=== PATIENT | female | born 1955 | race Caucasian/White ===

== ENCOUNTER 2018-02-26 15:16 | Emergency (ER) | payer BC, SELFPAY ==
[2018-02-26 15:22] VITALS: BP 147/77; PULSE 80; RESP 16; TEMP 36.5; O2SAT 96
--- NOTE | 2018-02-26 15:28 | ED.GENADUL ---
Disposition Clinical Impression: Skin lesion, Pyogenic granuloma Disposition: HOME Condition: Stable Instructions: Cellulitis (ED), Excision of Skin Lesion (GEN) Additional Instructions: Stop taking the Bactrim. Start taking the doxycycline antibiotic and finished completely. Follow-up with your primary care doctor in 1 week for reevaluation and for referral to dermatology. Return to the emergency department with any worsening or new concerning symptoms. Prescriptions: Doxycycline [Vibramycin] 100 mg PO BID 7 Days cap Medical Decision Making - Medical Decision Making 62-year-old female who presents with painful lesion to her left forearm for 3 weeks. No relief with Bactrim for the past week per PCP. Denies fever, tick bite, travel. Lesion appears to have a central umbilication or indentation which has dried blood in center. It is tender to touch with erythema directly around center and raised lesion which likely is consistent with mild infection. The initial lesion she describes similar to an area of bleeding on the distal forearm. Differential diagnoses includes pyogenic granuloma or ulcerative lesion, etc. Patient appears nontoxic with normal vitals. Will recommend patient stop the Bactrim and will start on doxycycline. Will have patient follow-up with her primary care doctor for referral to dermatology for further evaluation and consideration of biopsy if a possible skin cancer is a concern. History of Present Illness - General Stated complaint: SKIN LESION Time Seen by Provider: 02/26/18 15:28 Source: patient Mode of arrival: ambulatory Limitations: no limitations - History of Present Illness Initial comments: Patient is a 62-year-old female presents with a painful lesion on her left forearm for the past 3 weeks. States the lesion started as a small lesion with bleeding in center. States she attempted to pop it without relief. She sent a picture of the lesion to her primary care doctor 1 week ago who started her on Bactrim. Patient states the lesion has gotten worse since being on the Bactrim. She denies known fever. Denies recent tick bite, travel. - Related Data Bupropion HCl [Wellbutrin Sr] 150 mg PO BID 11/27/12 Methylphenidate [Ritalin] 10 mg PO DAILY 11/27/12 Aspirin [Aspir-Low] 81 mg PO DAILY 10/29/16 Atorvastatin [Lipitor] 20 mg PO DAILY 10/29/16 Levothyroxine Sodium [Synthroid] 25 mcg PO DAILY 10/29/16 Metoprolol [Lopressor] 12.5 mg PO BID 10/29/16 Pantoprazole [Protonix] 40 mg PO DAILY@0730 #30 tabcr 07/30/17 Doxycycline [Vibramycin] 100 mg PO BID 7 Days cap 02/26/18 Allergies Allergy/AdvReac Type Severity Reaction Status Date / Time dry air heat AdvReac Mild runny Uncoded 10/29/16 17:11 nose/sneezing Review of Systems Constitutional: denies: chills, fever Eyes: denies: eye pain ENT: denies: ear pain, dental pain Respiratory: denies: cough, shortness of breath Cardiovascular: denies: chest pain, dyspnea on exertion Gastrointestinal: denies: abdominal pain, nausea, vomiting Genitourinary: denies: urgency, dysuria, frequency Musculoskeletal: denies: back pain Skin: lesions. denies: rash Neurological: denies: headache, weakness, numbness Past Medical History - Past Medical History Medical history: AMI, hyperlipidemia, hypertension Hypothyroidism Surgical history: other (Hip replacement, bladder repair) Psychiatric history: anxiety, depression Family history: CAD/[place] (MOTHER), cancer (FATHER), diabetes (BROTHER) - Social History Smoking status: never smoker Alcohol use: none Drug use: none General Exam - General Limitations: no limitations General appearance: alert, in no apparent distress - Eye Eye exam: Present: EOMI - Respiratory Respiratory exam: Absent: respiratory distress - Cardiovascular Cardiovascular Exam: Present: regular rate - Extremities Exam Extremities exam: Present: other (An approximately 2 x 2 centimeter raised erythematous lesion on left dorsal mid forearm. There appears to be a center area of excoriation consistent with possibly dried blood. There is no extending induration, fluctuance, or streaking from lesion.) - Neurological Exam Neurological exam: Present: alert, oriented X3 - Psychiatric Psychiatric exam: Present: normal affect - Skin Skin exam: Present: warm, dry, intact Course Vital Signs - 24 hr 02/26/18 15:22 Temperature 205.7 F H Pulse 80 Respiratory 16 Rate Blood Pressure 147/77 Pulse Oximetry 96
[2018-02-26 16:00] VITALS: BP 147/77; PULSE 80; RESP 16; TEMP 36.5; O2SAT 96
== END 2018-02-26 15:59 | disposition home or self-care (01) ==
PROVIDERS: Emergency Provider Physician Assistant; PCP Family Medicine
DX: L98.0 Pyogenic granuloma (principal); I10 Essential (primary) hypertension
CPT/HCPCS: 99283

== ENCOUNTER 2018-05-06 10:44 | Outpatient (CLI) | payer BC, SELFPAY ==
[2018-05-06 12:46] LABS: Ferritin 41 ng/mL (8-388)
== END 2018-05-06 11:04 ==
PROVIDERS: PCP Family Medicine; Visit Provider Nurse Practitioner
DX: G47.61 Periodic limb movement disorder (principal)
CPT/HCPCS: 36415; 82728

== ENCOUNTER 2018-08-26 22:00 | Outpatient (REF) | payer MEDICAID, SELFPAY ==
[2018-08-26 22:48] LABS: ALT 23 U/L (12-78); AST 23 U/L (15-37); Albumin 3.8 g/dL (3.4-5.0); Alkaline Phosphatase 87 U/L (46-116); Anion Gap 11.2 mmol/L (3-11); BUN 14 mg/dL (7-18); Bilirubin, Total 0.6 mg/dL (0.2-1.0); CO2 26.8 mmol/L (21.0-32.0); CREATININE 0.84 mg/dL (0.55-1.02); Calcium 8.9 mg/dL (8.5-10.1); Chloride 105 mmol/L (98-107); Glucose 127 mg/dL (70-100); Potassium 4.3 mmol/L (3.5-5.1); Sodium 143 mmol/L (136-145); TSH (W/Ref FT4) 1.05 uIU/mL (0.358-3.74); Total Protein 6.6 g/dL (6.4-8.2)
== END 2018-08-26 22:20 ==
LOC: NCHCN 22:00
PROVIDERS: PCP Family Medicine; Visit Provider Family Medicine
DX: E03.9 Hypothyroidism, unspecified (principal); E78.5 Hyperlipidemia, unspecified; I10 Essential (primary) hypertension
CPT/HCPCS: 80053; 84443

== ENCOUNTER 2019-01-05 10:44 | Outpatient (CLI) | payer MEDICARE, OTHER, MEDICAID, SELFPAY ==
[2019-01-05 15:29] LABS: Bilirubin Negative (Negative); Blood Large (Negative); Glucose Negative (Negative); Ketones Negative (Negative); Leukocyte Esterase Moderate (Negative); Nitrite Negative (Negative); Specific Gravity 1.025 (1.005-1.025); Urobilinogen 0.2 EU/dL (Up TO 0.2)
[2019-01-05 15:30] LABS: Clarity Sl Cloudy (Clear)
[2019-01-05 15:31] LABS: WBC >50 HPF (0-5)
[2019-01-05 15:32] LABS: C & S Indicated? Yes; RBC >50 (0-2)
== END 2019-01-05 11:04 ==
PROVIDERS: PCP Family Medicine; Visit Provider Family Medicine
DX: R30.0 Dysuria (principal)
CPT/HCPCS: 87077; 81003; 81015; 87086; 87186

== ENCOUNTER 2019-02-10 12:05 | Outpatient (REF) | payer MEDICARE, OTHER, SELFPAY ==
--- NOTE | 2019-02-10 13:30 | PAPFT_PTH ---
PATIENT: Jessa Madrigal LOC: [facility] U#:[id number] AGE/SX: 63/F ROOM: RE02/10/[address]: Judith Osorio V : 1955 BED: DIS: 02/10/2019 SPEC #: [id number] RECD: 02/11/19 12:49 STATUS: STEPHANY RIVERA #: [id number] MEJIA: 02/10/19 13:[address]: Judith Osorio V DEPT: [facility] Cytology RECD BY: Maria M Warren Tissues: 1 - CX/ENDOCX FOR PAP SMEARS Procedures: PAP THIN PREP/UVM Screening HPV DNA PROBE Comments: [id number]
== END 2019-02-10 12:25 ==
LOC: NCHCN 12:05
PROVIDERS: PCP Family Medicine; Visit Provider Family Medicine
DX: Z12.4 Encounter for screening for malignant neoplasm of cervix (principal); Z11.51 Encounter for screening for human papillomavirus (HPV); Z01.419 Encounter for gynecological examination (general) (routine) without abnormal findings
CPT/HCPCS: 88142; 87624

== ENCOUNTER 2019-05-09 01:50 | Outpatient (CLI) | payer MEDICARE, OTHER, SELFPAY ==
--- NOTE | 2019-05-09 11:55 | DI.MAMMO_ITS ---
EXAM: MG MAMMO SCREENING CLINICAL HISTORY: [facility], Z00.00, SCREENING, Z12.31. TECHNIQUE: Bilateral full field digital CC and MLO mammographic images were obtained with 3D tomosyn thesis and utilizing computer aided detection (CAD). COMPARISON: Available for comparison. FINDINGS: Masses/Architectural Distortion: None seen. Microcalcifications: No suspicious pleomorphic-type are seen. Skin Thickening/Nipple Retraction: None. IMPRESSION: 1. No significant interval change with no specific features of malignancy noted. 2. Unless there is more urgent need, screening mammography is recommended, as per [employer] guidelines. ACR BI-RAD Category- 1 Negative Breast Density - Category B - Scattered areas of fibroglandular density A negative radiographic report should not delay biopsy if a dominant or clinically suspicious mass is present. Up to ten percent of cancers are not identified on mammography. A negative report may reinforce clinical impression. Adenosis and dense breasts may obscure an underlying neoplasm. False positive reports average 6 to 10%.
== END 2019-05-09 02:10 ==
PROVIDERS: PCP Family Medicine; Visit Provider Family Medicine
DX: Z12.31 Encounter for screening mammogram for malignant neoplasm of breast (principal)
CPT/HCPCS: 77063; 77067

== ENCOUNTER 2019-10-11 09:11 | Outpatient (CLI) | payer OTHER, SELFPAY ==
[2019-10-14 04:37] LABS: SARS-CoV-2 RNA Undetected (Undetected); SARS-CoV-2 Specimen Source Nasopharynx
== END 2019-10-11 09:31 ==
PROVIDERS: PCP Family Medicine; Visit Provider Physician Assistant
DX: Z20.828 Contact with and (suspected) exposure to other viral communicable diseases (principal); R05 Cough
CPT/HCPCS: U0003

== ENCOUNTER 2019-12-05 10:38 | Emergency (ER) | payer OTHER, SELFPAY ==
[2019-12-05] VITALS (34 sets, daily range): BP systolic 116–146; BP diastolic 59–99; PULSE 67–89; RESP 15–24; TEMP 36.6–37; O2SAT 82–97
--- NOTE | 2019-12-05 10:56 | ED.GENADUL_ITS ---
Discharge Plan Disposition Patient Disposition: HOME Condition: Fair Discharge Details Chief Complaint: GI Bleed Clinical Impression: Colitis, Diverticulitis, Hypokalemia Primary Care Provider: Judith Osorio V ED Provider: Yesi Lopez Home Meds and New Rx's Prescriptions: New amoxicillin-pot clavulanate [Augmentin] 875-125 mg tablet 1 tab PO TID 7 Days Qty: 21 RF: 0 ondansetron 4 mg tablet,disintegrating 4 mg PO Q6H PRN (Reason: nausea and vomiting) Qty: 10 RF: 0 Continued glucosamine-chondroitin [Osteo Bi-Flex] 250-200 mg Tablet 1 tab PO DAILY RF: 0 levothyroxine [Synthroid] 25 MCG tablet 25 mcg PO DAILY RF: 0 aspirin [Aspir-Low] 81 MG tablet,delayed release (DR/EC) 81 mg PO DAILY RF: 0 metoprolol tartrate 12.5 MG tablet 12.5 mg PO BID RF: 0 atorvastatin [Lipitor] 10 MG tablet 20 mg PO DAILY RF: 0 pantoprazole 40 MG tablet,delayed release (DR/EC) 40 mg PO DAILY@0730 Qty: 30 RF: 0 Discharge Instructions Instructions: Potassium Chloride (By mouth), Amoxicillin/Clavulanate Potassium (By mouth), Ondansetron (By mouth), Diverticulitis (ED), Hypokalemia (ED), Diverticulitis Diet (ED) Additional Instructions: Encourage water intake. You may continue with Tylenol and/or ibuprofen as needed for discomfort. Please take the antibiotics as prescribed. Even if symptoms improve, please finish the entire course. You may use the Zofran as prescribed to help with any recurrence of your nausea or vomiting. Will be sent home with 3 doses of potassium. Please print these out but complete the 30 mg course over tonight and tomorrow morning. These would be well-tolerated with food. Please encourage potassium intake in diet. I would like for you to follow-up with your primary care in the next 48 hours. Please call tomorrow morning to schedule follow-up appointment. If you develop fever/chills, increased bleeding, weakness, inability stay hydrated, increased pain or other new/worsening symptom please seek care urgently once again. I would like for you to discuss colonoscopy further with primary care. Referrals: Judith Osorio MD [Primary Care Provider] - Medical Decision Making Patient is a pleasant 64-year-old female presenting today with chief complaint of bright red blood per rectum as well as left lower quadrant abdominal pain. She reports that symptoms began yesterday at 2 PM. She states that she is never had pain like this historically. States yesterday she had nausea and vomiting x1. Has not experienced this today. Last ate at 9 AM at which time she had a muffin and has been hydrating today. She states that the pain was severe enough to cause her to take Toradol which she states relieved her discomfort. She denies any rectal pain. Denies any rectal trauma. Has not had history of hemorrhoids. No recent medication changes. No fevers or chills. No previous abdominal surgeries. Denies black or tarry stools. No hematemesis. Denies any hematuria or easy bruising/bleeding. States that rather she is seeing bright red blood in watery brown diarrhea. Last colonoscopy was in 2011 at which time benign polyps were removed. Patient has significant family history for colon cancer. She reports that her father at 62 from colon cancer. On exam, patient is resting comfortably. Appears nontoxic. Vital signs significant for blood pressure 146/82. Otherwise within normal limits. Lungs are clear, normal cardiac exam. No CVA tenderness. Patient is tender in the left lower quadrant with no guarding or rebound tenderness. No peritoneal findings. Rectal exam was without abnormality. He did attempt a guaiac test but patient's rectal vault is fairly clean so I do not note the quality of this test. She is declining any antiemetics or analgesics at this time. Plan for labs and CT. Primarily concern for diverticulitis. Also considered atypical appendicitis. I find ovarian source less likely as the patient is having diarrhea associated with this. This could be infectious etiology versus other. Labs reviewed. Patient has leukocytosis with a white count of 15 and left shift. Hemoglobin is stable at 15.7. Potassium is low at 3.1. Will replenish this orally. No other electrolyte abnormalities. TSH within normal limits. FINDINGS: Lungs: Mild opacities in the lingula and both lower lobes may represent atelectasis or pneumonia. Liver: Well delineated low-attenuation mass in the medial right lobe of the liver 3.1 by 1.5 cm. Twenty-two Hounsfield units . Gallbladder and bile ducts: Normal. No calcified stones. No ductal dilation. Pancreas: Normal. No ductal dilation. Spleen: Normal. No splenomegaly. Adrenals: Normal. No mass. Kidneys and ureters: Normal. No hydronephrosis. Stomach and bowel: Low-attenuation bowel wall thickening is seen throughout the colon consistent with colitis. Differential diagnosis includes infectious and inflammatory etiologies.. Diverticulosis of the rectosigmoid with pericolonic inflammatory changes may reflect concomitant diverticulitis. Appendix: Right inguinal hernia contains the appendix Intraperitoneal space: Unremarkable. No free air. No significant fluid collection. Vasculature: Unremarkable. No abdominal aortic aneurysm. Lymph nodes: Small retroperitoneal nodes Bladder: Unremarkable as visualized. Reproductive: Unremarkable as visualized. Bones/joints: Right total hip replacement Soft tissues: Unremarkable. IMPRESSION: 1. Low-attenuation bowel wall thickening is seen throughout the colon consistent with colitis. Differential diagnosis includes infectious and inflammatory etiologies.. 2. Well delineated low-attenuation mass in the medial right lobe of the liver 3.1 by 1.5 cm. Twenty-two Hounsfield units . 3. Diverticulosis of the rectosigmoid with pericolonic inflammatory changes may reflect concomitant diverticulitis. Discussed these findings with the patient. She will follow-up with her primary care regarding the findings in the liver. We will start the patient on antibiotics. Will start p.o. Augmentin. Her pain is much improved after 2 mg of morphine Zofran has completely subsided with Zofran. Patient is receiving her IV potassium. Plan to send her home with further p.o. potassium. Patient tolerated Augmentin well. Sent home with Augmentin, Zofran. Advised that she should follow-up with primary care in the next 2 days for reevaluation. Advised probiotic. Information on diverticular diet will be sent home. Also advised that she should have a repeat colonoscopy for family history and concerns today. Will defer to primary care to arrange for this. She was given return precautions. Patient has probiotics at home which she will continue. She will contact primary care tomorrow to schedule follow-up appointment. All of her questions and concerns were addressed this plan. HPI General Mode of arrival: ambulatory . Date/Time Provider Initiated Documentation: 12/05/19 10:56 . Limitations to Documentation: no limitations . Information obtained by: patient, RN notes reviewed and old records reviewed . History of Present Illness 64 year old F presents to the emergency department with the chief complaint of LLQ pain and bright red blood per rectum, described as moderate, with intensity rated at 5. Quality is described as aching, and is localized to the abdomen. Patient reports no radiation. Patient started experiencing this day(s) (1) and it has been constant. No relieving factors improve symptom(s), No exacerbating factors reported . Patient notes nausea/vomiting (x1 yesterday); denies chest pain, cough, fever/chills, loss of appetite (low appetiteyesterday, normal today), rash, shortness of breath and weakness. Patient did receive the following treatments prior to arrival, other (tramadol) Related Data Home Medications Medication Instructions Recorded Confirmed aspirin [Aspir-Low] 81 mg PO DAILY 10/29/16 12/05/19 atorvastatin [Lipitor] 20 mg PO DAILY 10/29/16 12/05/19 levothyroxine [Synthroid] 25 mcg PO DAILY 10/29/16 12/05/19 metoprolol tartrate 12.5 mg PO BID 10/29/16 12/05/19 pantoprazole 40 mg PO DAILY@0730 #30 tabcr 07/30/17 12/05/19 amoxicillin-pot clavulanate 1 tab PO TID 7 Days #21 tab 12/05/19 [Augmentin] glucosamine-chondroitin [Osteo 1 tab PO DAILY 12/05/19 12/05/19 Bi-Flex] ondansetron 4 mg PO Q6H PRN #10 tab 12/05/19 Previous Rx's Medication Instructions Recorded pantoprazole 40 mg PO DAILY@0730 #30 tabcr 07/30/17 amoxicillin-pot clavulanate 1 tab PO TID 7 Days #21 tab 12/05/19 [Augmentin] ondansetron 4 mg PO Q6H PRN #10 tab 12/05/19 Allergies Allergy/AdvReac Type Severity Reaction Status Date / Time dry air heat AdvReac Mild runny Uncoded 12/05/19 10:45 nose/sneezing General Stated Complaint: GI Bleed JAMES: 3 Review of Systems Constitutional Constitutional: Reports as per HPI, Denies chills, Denies fatigue, Denies fever(s) and Denies headache(s) ENT Ears, Nose, Mouth, and Throat: Denies headache(s) Cardiovascular Cardiovascular: Reports as per HPI, Denies chest pain and Denies dyspnea Respiratory Respiratory: Reports as per HPI, Denies cough and Denies dyspnea Gastrointestinal Gastrointestinal: Reports as per HPI, Reports abdominal pain, Denies melena, Denies bloating, Reports hematochezia, Reports change in bowel habits, Denies coffee ground emesis, Denies cramping, Reports diarrhea (watery brown stools with bright red blood streaks), Denies nausea (yesterday, none today) and Denies vomiting (x 1 yesterday, none today) Musculoskeletal Musculoskeletal: Reports as per HPI and Denies back pain Integumentary/Breasts Skin/Breast: Reports as per HPI and Denies rash Neurologic Neurologic: Reports as per HPI and Denies headache(s) Endocrine Endocrine: Denies fatigue [facility] Medical History ADHD CAD (coronary artery disease) GERD (gastroesophageal reflux disease) Social History Smoking/Tobacco Use Status: Current every day Alcohol Intake: never Drug use: Never Do you feel safe at home: Yes Do you feel safe in your relationship?: Yes Exam Const General: cooperative, healthy appearing, comfortable, no acute distress and well developed Nutritional Appearance: average body habitus and well nourished Orientation: alert and awake [facility] Head: normal to inspection Mouth: moist mucous membranes Resp Effort & Inspection: normal respiratory effort, able to speak in complete sentences and no respiratory distress Auscultation: clear to auscultation bilaterally, no rales, no rhonchi and no wheezes Cardio Rate: regular rate Rhythm: regular rhythm Heart Sounds: S1 normal and S2 normal GI Inspection: normal to inspection, no edema, non-distended, no scars, no visible herniation, no visible pulsation and No visible peristalsis Palpation: soft, no hepatosplenomegaly, not firm, no guarding, no hernias, no masses, no pulsatile masses, not rigid, tender in the LLQ; with no rebound tenderness and No ascites Percussion: normal to percussion Auscultation: normal bowel sounds Rectal Exam - female: visual inspection normal, normal sphincter tone and No abnormal stool (no stool in rectal vault for testing) Back/Spine/Pelvis Back: no CVA tenderness Skin General skin exam: no rashes or lesions noted Trauma: no lacerations or abrasions Neuro General: patient alert and patient awake Cognition: normal cognition Speech: speech normal Gait: normal gait Psych Appearance: grossly normal and well kempt Mental Status: mental status grossly normal Speech and Movement: speech and movement normal Course Vital Signs Vital signs: Vital Signs Temperature 36.6 C 12/05/19 10:40 Pulse 88 12/05/19 10:40 Respiratory Rate 16 12/05/19 10:40 Blood Pressure 146/82 H 12/05/19 10:40 Pulse Oximetry 96 12/05/19 10:40 Temperature 36.6 C 12/05/19 10:40 Temperature Source Skin 12/05/19 10:40 Pulse 88 12/05/19 10:40 Respiratory Rate 16 12/05/19 10:40 Respiratory Effort 12/05/19 10:49 Blood Pressure 146/82 H 12/05/19 10:40 Blood Pressure Position Sitting 12/05/19 10:40 Pulse Oximetry 96 12/05/19 10:40 Oxygen Delivery Method Room Air 12/05/19 10:40 Oxygen Flow Rate 0 12/05/19 10:40 Pain Level 5 12/05/19 10:53
[2019-12-05] MEDS: Normal Saline 1,000 ML 1000 ML IV (11:15)
[2019-12-05] MEDS: Normal Saline Flush 10 ML SYR IVP (11:15)
[2019-12-05 11:29] LABS: Abs Immature Grans 0.05 k/cumm (0.0-0.09); Absolute Lymphocyte Count 1.95 k/cumm (1.2-3.4); Absolute Neutrophil Count 12.19 k/cumm (1.2-6.7); Basophils % 0.1; Eosinophils % 0.5; HCT 44.6 % (36.0-46.0); HGB 15.7 g/dL (12.0-15.5); Immature Grans % 0.3 %; Lymphocytes % 12.8; Mean Corp. HGB Concentration 35.2 g/dL (32.0-36.0); Mean Corpuscular Hemoglobin 30.5 pg (27.0-33.0); Mean Corpuscular Volume 86.8 fL (80-95); Mean Platelet Volume 9.9 fL (8.0-11.0); Monocytes % 6.2; Neutrophils % 80.1; Platelet Count 298 x1000/uL (130-400); RBC 5.14 m/cumm (4.00-5.20); RBC Distribution Width 13.8 % (11.7-14.6); White Blood Cell Count 15.22 k/cumm (4.4-10.8)
[2019-12-05 11:30] LABS: Absolute Basophil Count 0.02 k/cumm (0.0-0.2); Absolute Eosinophil Count 0.08 k/cumm (0.0-0.7); Absolute Monocyte Count 0.94 k/cumm (0.11-0.7)
[2019-12-05] MEDS: Omnipaque 350 MG/ML 50 ML BTL IJ (11:35)
[2019-12-05] MEDS: Breeza Beverage 473 ML BTL PO ×2 (11:37)
[2019-12-05 11:55] LABS: ALT 23 U/L (14-59); AST 19 U/L (15-37); Albumin 4.1 g/dL (3.4-5.0); Alkaline Phosphatase 84 U/L (46-116); BUN 9 mg/dL (7-18); CREATININE 0.88 mg/dL (0.55-1.02); Calcium 8.6 mg/dL (8.5-10.1); Chloride 105 mmol/L (98-107); Glucose 148 mg/dL (74-106); Potassium 3.1 mmol/L (3.5-5.1); Sodium 141 mmol/L (136-145); Total Protein 7.4 g/dL (6.4-8.2)
[2019-12-05 11:57] LABS: TSH (W/Ref FT4) 1.11 uIU/mL (0.36-3.74)
[2019-12-05] MEDS: Omnipaque 350 MG/ML 100 ML BTL IJ (13:00)
[2019-12-05] MEDS: Normal Saline - Diluent 50 ML VIAL IV (13:01)
--- NOTE | 2019-12-05 13:05 | DI.CT_ITS ---
EXAM: CT ABDOMEN PELVIS W CLINICAL HISTORY: LLQ pain, BRP per rectum. TECHNIQUE: Imaging Protocol: Axial computed tomography images with coronal and sagittal reformatted images were created and reviewed CONTRAST MATERIAL: Intravenous: Omnipaque 350 Contrast volume:structured data in ml Oral: yes / no COMPARISON: CT ABD/PELVIS WO W CONTRAST from 04/04/2010 CR RT HIP COMPLETE AP PELVIS from 12/27/2015 CT CHEST FOR PULMONARY EMBOLUS from 10/29/2016 CT CHEST FOR PULMONARY EMBOLUS from 07/29/2017 FINDINGS: ABDOMEN: Lung Bases: Dependent changes Liver: Normal density. There is a circumscribed low-attenuation lesion in the posteromedial right lob e of the liver near the diaphragm measuring 3.1 x 1.5 cm. This is faintly visible on the previous ex aminations and appears grossly unchanged.. Gallbladder and biliary tract: No radiodense calculus or dilation. Pancreas: Normal density, no abnormal calcifications or inflammatory process. Spleen: Normal. Kidneys: Normal size, contour and axis. No radiodense stones or obstructive uropathy. No masses seen. Adrenal glands: No masses seen. Abdominal Aorta: Abdominal portion non-dilated. The distal abdominal aorta is heavily calcified show some reduction in diameter. The iliac arteries also show calcification and reduced diameter proxima lly. PELVIS: Bladder: Symmetric distention, no gross wall thickening. Bowel: The stomach and small bowel are unremarkable. The colon shows diffuse wall thickening. There is prominent diverticulosis of the lower descending and sigmoid colon. The appendix projects into t he right inguinal canal. Peritoneal cavity: No ascites, collection or mesenteric inflammatory response. Bones: There is a right hip prosthesis creating artifact in the pelvis. Degenerative disc changes ar e seen in the lumbar spine. Reproductive organs: Within normal limits. Lymph nodes: Unremarkable. Impression: Colonic wall thickening, consistent with infectious or inflammatory colitis. Severe diverticulosis i s noted of the descending and sigmoid colon. There is a right inguinal hernia containing the appendi x which is not inflamed.. RADIATION DOSE DELIVERED: 568.2mGy.cm Total DLP DATA REPOSITORY: All CT scans at this facility are submitted to the National Radiology Data Registry (NRDR) Dose Index Registry (DIR) with the [employer] [place] [employer] [employer] (ACR). RADIATION OPTIMIZATION: All CT scans at this facility use at least one of these dose optimization te chniques: automated exposure control; mA and/or kV adjustment per patient size (includes targeted exa ms where dose is matched to clinical indication); or iterative reconstruction.
--- NOTE | 2019-12-05 13:35 | DI.VRAD_ITS ---
PROCEDURE INFORMATION: Exam: CT Abdomen And Pelvis With Contrast Exam date and time: 12/05/2019 11:14 AM Age: 64 years old Clinical indication: Other: Llq pain, brp per rectum TECHNIQUE: Imaging protocol: Computed tomography of the abdomen and pelvis with intravenous contrast. Radiation optimization: All CT scans at this facility use at least one of these dose optimization techniques: automated exposure control; mA and/or kV adjustment per patient size (includes targeted exams where dose is matched to clinical indication); or iterative reconstruction. Contrast material: OMNIPAQUE 350; Contrast volume: 76 ml; Contrast route: IV; COMPARISON: CR RT HIP COMPLETE AP PELVIS 12/27/2015 9:04 AM FINDINGS: Lungs: Mild opacities in the lingula and both lower lobes may represent atelectasis or pneumonia. Liver: Well delineated low-attenuation mass in the medial right lobe of the liver 3.1 by 1.5 cm. Twenty-two Hounsfield units . Gallbladder and bile ducts: Normal. No calcified stones. No ductal dilation. Pancreas: Normal. No ductal dilation. Spleen: Normal. No splenomegaly. Adrenals: Normal. No mass. Kidneys and ureters: Normal. No hydronephrosis. Stomach and bowel: Low-attenuation bowel wall thickening is seen throughout the colon consistent with colitis. Differential diagnosis includes infectious and inflammatory etiologies.. Diverticulosis of the rectosigmoid with pericolonic inflammatory changes may reflect concomitant diverticulitis. Appendix: Right inguinal hernia contains the appendix Intraperitoneal space: Unremarkable. No free air. No significant fluid collection. Vasculature: Unremarkable. No abdominal aortic aneurysm. Lymph nodes: Small retroperitoneal nodes Bladder: Unremarkable as visualized. Reproductive: Unremarkable as visualized. Bones/joints: Right total hip replacement Soft tissues: Unremarkable. IMPRESSION: 1. Low-attenuation bowel wall thickening is seen throughout the colon consistent with colitis. Differential diagnosis includes infectious and inflammatory etiologies.. 2. Well delineated low-attenuation mass in the medial right lobe of the liver 3.1 by 1.5 cm. Twenty-two Hounsfield units . 3. Diverticulosis of the rectosigmoid with pericolonic inflammatory changes may reflect concomitant diverticulitis. Dictated and Authenticated by: Yung Quiroga MD. Ordering:DAVION Key MD
[2019-12-05] MEDS: Ondansetron 4 MG/2 ML VIAL IVP (13:45)
[2019-12-05] MEDS: POTASSIUM CHLORIDE 20 MEQ/100 ML BAG 50 MEQ IVPB (13:53)
[2019-12-05] MEDS: Amoxicillin 875/Clav. 125 TAB PO ×2 (14:39→15:52)
[2019-12-05] MEDS: Ondansetron O.D.T. 4 MG TABEF 12 MG PO (15:51)
[2019-12-05] MEDS: Potassium Chloride 10 MEQ TABCR 30 MEQ PO (15:51)
== END 2019-12-05 15:55 | disposition home or self-care (01) ==
PROVIDERS: Emergency Provider Physician Assistant; PCP Family Medicine
DX: K57.32 Diverticulitis of large intestine without perforation or abscess without bleeding (principal); K52.9 Noninfective gastroenteritis and colitis, unspecified; R93.2 Abnormal findings on diagnostic imaging of liver and biliary tract; E87.6 Hypokalemia; R11.2 Nausea with vomiting, unspecified; Z80.0 Family history of malignant neoplasm of digestive organs
CPT/HCPCS: 36415; 80053; 86850; 86900; 86901; 96361; 96365; 96366; 96375; 99285; 74177; 84443; 85025; 99284; J2405; J3480; J3490; Q9967

== ENCOUNTER 2019-12-09 13:54 | Outpatient (REF) | payer OTHER, SELFPAY ==
[2019-12-09 19:45] LABS: BUN 9 mg/dL (7-18); CREATININE 0.71 mg/dL (0.55-1.02); Calcium 9.2 mg/dL (8.5-10.1); Chloride 105 mmol/L (98-107); Glucose 94 mg/dL (74-106); Potassium 4.7 mmol/L (3.5-5.1); Sodium 142 mmol/L (136-145)
== END 2019-12-09 14:14 ==
LOC: NCHCN 13:54
PROVIDERS: PCP Family Medicine; Visit Provider Physician Assistant Medical
DX: R19.7 Diarrhea, unspecified (principal)
CPT/HCPCS: 80048

== ENCOUNTER → 2019-12-16 11:19 | Outpatient (BNVA) | payer OTHER, MEDICARE, SELFPAY | PROVIDERS: PCP Family Medicine; Referring Provider Family Medicine; Visit Provider Surgery | DX: K52.89 Other specified noninfective gastroenteritis and colitis (principal); K40.90 Unilateral inguinal hernia, without obstruction or gangrene, not specified as recurrent; I10 Essential (primary) hypertension | CPT/HCPCS: 99213 ==

== ENCOUNTER 2019-12-16 22:00 | Outpatient (REF) | payer OTHER, MEDICARE, SELFPAY ==
[2019-12-19 10:39] LABS: Campylobacter PCR Negative (Negative); Salmonella PCR Negative (Negative); Shiga Toxin PCR Negative (Negative); Shigella/Enteroinvasive Ecoli Negative (Negative)
== END 2019-12-16 22:20 ==
LOC: NCHCN 22:00
PROVIDERS: PCP Family Medicine; Visit Provider Physician Assistant Medical
DX: R19.7 Diarrhea, unspecified (principal); K52.9 Noninfective gastroenteritis and colitis, unspecified
CPT/HCPCS: 87505; 83630; 87324

== ENCOUNTER → 2019-12-30 11:29 | Outpatient (BNVA) | payer OTHER, MEDICARE, SELFPAY | PROVIDERS: PCP Family Medicine; Referring Provider Family Medicine; Visit Provider Surgery | DX: Z12.11 Encounter for screening for malignant neoplasm of colon (principal); Z80.0 Family history of malignant neoplasm of digestive organs; K52.9 Noninfective gastroenteritis and colitis, unspecified; I10 Essential (primary) hypertension ==

== ENCOUNTER 2020-01-30 07:19 | Day surgery (SDC) | payer OTHER, SELFPAY ==
--- NOTE | 2020-01-30 06:48 | COLE_ITS ---
Date of service: 01/30/20 Time of Service: 08:18 Colonoscopy Report Date of procedure: 01/30/20 Pre-op diagnosis general: Family history and colon cancer screening Post-op diagnosis procedure note: same (diverticulosis and polyps) Procedure: Colonoscopy with polypectomy Surgeon: Gloria Chavez Anesthesia proc note operative: other (General/ ASA 2/Vanna Sewell, ADELITA) Estimated blood loss (mL): 3 Pathology: other (rectal p, cecal p.,ascending P. x2, Transverse p. x2, descending p.) Complications: None Disposition: same day Indications: 64 year old female diagnosed with colitis/diverticulitis and treated with 2 weeks of Augmentin. She is here today to discuss a colonoscopy. Her last colonoscopy was about 8 years ago. She does have an extensive family history of colon cancer and is supposed to have colonoscopies every 5 years. Risks, benefits and complications have been reviewed. Complications include but are not limited to bleeding, pain, perforation, missed small lesion/polyp, sore throat, aspiration and adverse reaction to the medications. Questions were entertained and answered to their satisfaction and they wished to proceed. No guarantees were given or implied. Prep: Miralax/Dulcolax Procedure Start Time: 08:18 Procedure End Time: 09:05 Retraction Time: 21 minutes Findings: Severe diverticulosis of the descedning and sigmoid colon, mild diverticulosis of the ascending and transverse colon. Multiple polyps >1cm sessile polyp in the cecum, >1 cm sessile ascending Polyp Procedure Description: After informed consent was obtained the patient was taken to the procedure room and placed in a left decubitous position. Monitors were applied and a time out was done. The patients name, date of , procedure, allergies to medications and metal in their body was reviewed. The patient was then sedated. Once sedated and comfortable a rectal exam was done. External exam was normal. Internal exam revealed a normal sphincter tone and no palpable masses. The scope was then introduced and retro-flexed. No internal hemorrhoids were identified. The scope was then advanced to the cecum with difficulty due to severe diverticulosis. The ileocecal valve and appendiceal orifice were identified. The prep was good. The scope was then slowly retracted over 21 minutes back into the rectum. Polyps were removed with cold forceps in the cecum, ascending colon x2, transverse colon x2, descending colon and rectum. The scope was removed and the patient was woken up and taken back to Same day surgery in stable condition. The patient tolerated the procedure well and there were no immediate complica tions. Follow up: Follow up will depend on final pathology results.
--- NOTE | 2020-01-30 06:50 | W.PM.DSUDISC ---
Discharge Plan Disposition Patient Disposition: HOME Condition: Good Discharge Details Reason For Visit: Colon Cancer Screening/ Family history Attending Provider: Gloria Chavez Primary Care Provider: Judith Osorio V Home Meds and New Rx's Prescriptions: Continued nitroglycerin [Nitrostat] 0.4 mg tablet, sublingual 0.4 mg SL Q5M PRNRF: 0 hydrocortisone acetate [Anusol-HC] 25 mg suppository 25 mg [place] DAILY RF: 0 omeprazole 40 mg capsule,delayed release(DR/EC) 40 mg PO DAILY RF: 0 levothyroxine [Synthroid] 50 mcg tablet 50 mcg PO DAILY RF: 0 triamcinolone acetonide [Nasacort] 55 mcg aerosol,spray 1 spray BRYCE DAILY RF: 0 cholecalciferol (vitamin D3) 50 mcg (2,000 unit) capsule 50 mcg PO DAILY RF: 0 glucosamine-chondroitin [Osteo Bi-Flex] 250-200 mg Tablet 1 tab PO DAILY RF: 0 ondansetron 4 mg tablet,disintegrating 4 mg PO Q6H PRN (Reason: nausea and vomiting) Qty: 10 RF: 0 aspirin [Aspir-Low] 81 MG tablet,delayed release (DR/EC) 81 mg PO DAILY RF: 0 metoprolol tartrate 12.5 MG tablet 12.5 mg PO BID RF: 0 atorvastatin [Lipitor] 10 MG tablet 20 mg PO DAILY RF: 0 Discontinued bisacodyl [Dulcolax (bisacodyl)] 5 mg tablet,delayed release (DR/EC) 5 mg PO ONCE Qty: 4 RF: 0 polyethylene glycol 3350 17 gram/dose powder 17 g PO ONCE Qty: 238 RF: 0 Discharge Instructions Instructions: Diverticulosis (DC) Additional Instructions: Findings: severe diverticulosis Multiple polyps Follow up: will depend on final pathology results. Please call if you develop: fevers >101.5 Nausea or Vomiting Abdominal pain that is not transient DAY SURGERY UNIT POST ENDOSCOPY INSTRUCTIONS 1. Because there will be medication in your system for the next 24 hours, you may feel a little sleepy. Your coordination will be affected. Therefore: a. Do not drive or operate dangerous equipment for 24 hours. b. Do not drink alcohol beverages for 24 hours (not even beer). c. Plan to go home and rest for the day. 2. Generally there are no restrictions on your activity after a day or so has gone by, but you may feel a bit fatigued for a few days. 3 After you arrive home you may have a light meal and return to a normal diet as you can tolerate it without feeling sick to your stomach. 4. After surgery, you may feel pain or discomfort. This should be only transient, but if it persists please contact your doctor. 5. If there are any questions regarding the findings of your procedure, please feel free to contact your doctor. 6. If you are unable to contact your doctor with a problem, contact the hospital at [phone]. 7. Continue all your regular medications unless directed otherwise. I understand the above instructions and have no questions. Signature of Patient or Responsible Adult Escort Date/Time Name of Responsible Adult Escort Signature of Nurse Date/Time Activity:: Activity as Tolerated Diet:: As Tolerated Discharge Orders Discharge Orders: Discharge Order (Routine); Ordered 01/30/20 Ordered By: Gloria Chavez
[2020-01-30 07:15] VITALS: BP 147/85; PULSE 81; RESP 18; TEMP 36.2; O2SAT 95
[2020-01-30] MEDS: Lactated Ringers 1,000 ML 80 ML IV (07:56)
--- NOTE | 2020-01-30 07:59 | W.PREOPHP ---
Date of service: 01/30/20 Time of Service: 07:59 Assessment and Plan Assessment and plan (1) Encounter for colorectal cancer screening: Status: Acute Assessment and plan: A\\ 64 year old female diagnosed with colitis/diverticulitis and treated with 2 weeks of Augmentin. She is here today to discuss a colonoscopy. Her last colonoscopy was about 8 years ago. She does have an extensive family history of colon cancer and is supposed to have colonoscopies every 5 years. P\\ Colonoscopy under sedation Risks, benefits and complications have been reviewed. Complications include but are not limited to bleeding, pain, perforation, missed small lesion/polyp, sore throat, aspiration and adverse reaction to the medications. Questions were entertained and answered to their satisfaction and they wished to proceed. No guarantees were given or implied. (2) Family history of colon cancer: Status: Acute History of Present Illness Narrative: Jessa is back to see me today after finishing another 10 dasys of Augmentin. He symptoms have resolved. She is having some constipation right now. NO melena or hematochezia. She tells me her last colonoscopy was about 8 years ago. She is supposed to have colonoscopies every 5 years. She has a pretty extensive family history colon cancer. Her father was 1 of 12 children. He and 9 other siblings all had colon cancer. She tells me that her cousins are around her age and they are also being diagnosed with colon cancer. There have been no changes since she was seen in the office. Review of Systems Cardiovascular Cardiovascular: Denies chest pain, Denies chest pain at rest, Denies irregular heart rhythm, Denies dyspnea and Denies dyspnea on exertion Respiratory Respiratory: Reports cough, Denies dyspnea and Denies dyspnea on exertion Gastrointestinal Gastrointestinal: Reports as per HPI Genitourinary Genitourinary: Denies dysuria, Reports urinary incontinence and Denies urinary urgency Endocrine Endocrine: Reports system reviewed and no additional complaints, except as documented Hematologic/Lymphatic Hematologic/Lymphatic: Denies easy bruising and Denies lymphadenopathy [facility] Social History Smoking/Tobacco Use Status: Current every day Alcohol Intake: never Drug use: Never Substance use type: does not use Do you feel safe at home: Yes Do you feel safe in your relationship?: Yes Additional Social history: not in a relationship Meds Home Medications and Allergies Home Medications Medication Instructions Recorded Confirmed Type aspirin [Aspir-Low] 81 mg PO DAILY 10/29/16 01/30/20 History atorvastatin [Lipitor] 20 mg PO DAILY 10/29/16 01/30/20 History metoprolol tartrate 12.5 mg PO BID 10/29/16 01/30/20 History glucosamine-chondroitin [Osteo 1 tab PO DAILY 12/05/19 01/30/20 History Bi-Flex] ondansetron 4 mg PO Q6H PRN #10 tab 12/05/19 01/30/20 Rx cholecalciferol (vitamin D3) 50 50 mcg PO DAILY 12/14/19 01/30/20 History mcg (2,000 unit) capsule hydrocortisone acetate 25 mg 25 mg [place] DAILY 12/14/19 01/30/20 History rectal suppository levothyroxine 50 mcg tablet 50 mcg PO DAILY 12/14/19 01/30/20 History nitroglycerin 0.4 mg sublingual 0.4 mg SL Q5M PRN 12/14/19 01/30/20 History tablet omeprazole 40 mg capsule,delayed 40 mg PO DAILY 12/14/19 01/30/20 History release triamcinolone acetonide 55 mcg 1 spray BRYCE DAILY 12/14/19 01/30/20 History nasal spray aerosol Allergies Allergy/AdvReac Type Severity Reaction Status Date / Time dry air heat AdvReac Mild runny Uncoded 01/30/20 07:28 nose/sneezing Exam Const General: healthy appearing and comfortable Resp Effort & Inspection: normal respiratory effort Auscultation: clear to auscultation bilaterally Cardio Rate: regular rate Rhythm: regular rhythm Heart Sounds: no click, no gallops and no murmurs Results Last Vital Signs Temp 97.2 F L 01/30/20 07:15 Pulse 81 01/30/20 07:15 Resp 18 01/30/20 07:15 BP 147/85 H 01/30/20 07:15 Pulse Ox 95 01/30/20 07:15
--- NOTE | 2020-01-30 08:20 | BOWEL_PTH ---
PATIENT: Jessa Madrigal LOC: [facility] U#:[id number] AGE/SX: 64/F ROOM: RE01/30/[address]: Gloria Chavze MD : [id number] BED: DIS: 01/30/2020 SPEC #: [id number] RECD: 01/30/20 11:53 STATUS: STEPHANY RE #: [id number] MEJIA: 01/30/20 08:[address]: Gloria Chavez DEPT: Surgical Specimen RECD BY: Maria M Warren ENTERED: 01/30/20 12:04 SP TYPE: Bowel OTHR DR: Judith Osorio V Tissues: 1 - BIOPSY BOWEL 2 - BIOPSY BOWEL 3 - BIOPSY BOWEL 4 - BIOPSY BOWEL 5 - BIOPSY BOWEL 6 - BIOPSY BOWEL Procedures: GROSS AND MICRO LEVEL 4 Comments: [id number]
[2020-01-30 09:56] VITALS: BP 155/96; PULSE 79; RESP 28; TEMP 37.2; O2SAT 89
[2020-01-30] MEDS: Albuterol HFA 8 GM 60 PUFF INH IH (09:56)
--- NOTE | 2020-01-30 10:10 | NUR.NOTE ---
Addendum entered by Chanelle Rondon RN 01/30/20 11:20: Pt still struggeled with breathing for a short time after her next two puffs on her inhaler. She was assessed by Dr. Mccollum and Devante Varela CRNA as pt was stating that she was becoming tired and her arms feel weak. Upon assessment, pt started to gradually improve and was able to realx a little more to breathe. Original Note: Nursing Note:At 1005 on 01/30/20, Nena Duran administered the Albuterol inhaler for 2 more puffs on Lizz Sewell's verbal order.
[2020-01-30 10:14] VITALS: BP 156/82; PULSE 84; RESP 24; TEMP 36.6; O2SAT 94
[2020-01-30] MEDS: Hyoscyamine 0.125 MG SL/ORAL/CHEW SL (10:25)
[2020-01-30 10:26] VITALS: BP 150/86; PULSE 79; RESP 16; TEMP 36.7; O2SAT 92
[2020-01-30 10:51] VITALS: BP 155/88; PULSE 85; RESP 22; TEMP 36.9; O2SAT 91
== END 2020-01-30 11:00 | disposition home or self-care (01) ==
LOC: SUR 07:20
PROVIDERS: PCP Family Medicine; Visit Provider Surgery
PROC: 0DJD8ZZ Inspection of Lower Intestinal Tract, Via Natural or Artificial Opening Endoscopic (ICD-10-PCS; CPT 45378; principal; 2020-01-30 08:30)
DX: Z12.11 Encounter for screening for malignant neoplasm of colon (principal); Z80.0 Family history of malignant neoplasm of digestive organs; D12.8 Benign neoplasm of rectum; D12.0 Benign neoplasm of cecum; D12.2 Benign neoplasm of ascending colon; D12.3 Benign neoplasm of transverse colon; D12.4 Benign neoplasm of descending colon; K57.30 Diverticulosis of large intestine without perforation or abscess without bleeding; Z87.19 Personal history of other diseases of the digestive system; F17.210 Nicotine dependence, cigarettes, uncomplicated
CPT/HCPCS: 45380; 88305; NC; J2001; J2310; J2405; J3010; J3490

== ENCOUNTER 2020-01-31 06:46 | Inpatient (IN) | payer OTHER, SELFPAY ==
[2020-01-31] VITALS (89 sets, daily range): BP systolic 81–146; BP diastolic 46–115; PULSE 68–168; RESP 15–33; TEMP 35.2–38.3; O2SAT 85–95
--- NOTE | 2020-01-31 07:09 | W.ED.GENAD ---
Discharge Plan Disposition Patient Disposition: [facility] INPATIENT Condition: Serious Discharge Details Chief Complaint: Abd Prob Clinical Impression: Abdominal pain, Bowel perforation, Intra-abdominal free air of unknown etiology Primary Care Provider: Judith Osorio V ED Provider: Matthieu Abreu Home Meds and New Rx's Prescriptions: No Action nitroglycerin [Nitrostat] 0.4 mg tablet, sublingual 0.4 mg SL Q5M PRNRF: 0 hydrocortisone acetate [Anusol-HC] 25 mg suppository 25 mg [place] DAILY RF: 0 omeprazole 40 mg capsule,delayed release(DR/EC) 40 mg PO DAILY RF: 0 levothyroxine [Synthroid] 50 mcg tablet 50 mcg PO DAILY RF: 0 triamcinolone acetonide [Nasacort] 55 mcg aerosol,spray 1 spray BRYCE DAILY RF: 0 cholecalciferol (vitamin D3) 50 mcg (2,000 unit) capsule 50 mcg PO DAILY RF: 0 glucosamine-chondroitin [Osteo Bi-Flex] 250-200 mg Tablet 1 tab PO DAILY RF: 0 ondansetron 4 mg tablet,disintegrating 4 mg PO Q6H PRN (Reason: nausea and vomiting) Qty: 10 RF: 0 aspirin [Aspir-Low] 81 MG tablet,delayed release (DR/EC) 81 mg PO DAILY RF: 0 metoprolol tartrate 12.5 MG tablet 12.5 mg PO BID RF: 0 atorvastatin [Lipitor] 10 MG tablet 20 mg PO DAILY RF: 0 Medical Decision Making Pleasant 64-year-old female with a past medical history of diverticulitis, coronary artery disease, strong family history of colon cancer who recently had a colonoscopy on 01/30/[address] Chavez. Colonoscopy at that time had multiple biopsies with no complications. Patient was discharged home. Since then the patient states that she has had severe pain and bloating, she has been nauseous, has been unable to eat anything. She denies any flatus or bowel movement since the colonoscopy. She did have an episodes of vomiting when she was taking the prep, but no vomiting since then. She has had colonoscopies before and states that she has never had pain like this before. Patient has no other complaints at this time. She denies any chest pain, chest tightness, dysuria, arm neck or shoulder pain. Physical exam demonstrates a distended abdomen, no subcutaneous crepitus, reduced bowel sounds. Notable generalized tenderness throughout. Differential at this time is concerning for postop complication from colonoscopy including perforation secondary to biopsies. Patient also may just be suffering from Ashwini distention secondary to an evacuated air. We will get a CT scan, control the patient's pain, gently rehydrate, monitor closely and reassess. 7:[address] scan results still pending, however evaluation of imaging demonstrates notable amount of air in the intra-abdominal space separate from the bowel wall. Concern for perforation. Dr. Chavez was contacted, she reviewed the CT scan as well and is come to the same conclusion. Patient will be brought emergently to the OR. Screening EKG performed and is unremarkable. Zosyn will be added per surgical request. Patient's pain is actually notably improved. Type and screen is currently being added. Patient will be admitted to directly to the OR for surgical management. I have extensively reviewed the treatment plan with the patient. I have addressed all patient concerns at this time. I have also discussed the plan with the admitting physician and they agree with the current assessment and plan and have agreed to assume responsibility for the patient. All parties demonstrate verbal understanding and agreement with our assessment and plan at this time. HPI General Date/Time Provider Initiated Documentation: 01/31/20 06:57. HPI Narrative: Pleasant 64-year-old female with a past medical history of diverticulitis, coronary artery disease, strong family history of colon cancer who recently had a colonoscopy on 01/30/[address] Chavez. Colonoscopy at that time had multiple biopsies with no complications. Patient was discharged home. Since then the patient states that she has had severe pain and bloating, she has been nauseous, has been unable to eat anything. She denies any flatus or bowel movement since the colonoscopy. She did have an episodes of vomiting when she was taking the prep, but no vomiting since then. She has had colonoscopies before and states that she has never had pain like this before. Patient has no other complaints at this time. She denies any chest pain, chest tightness, dysuria, arm neck or shoulder pain. Related Data Home Medications Medication Instructions Recorded Confirmed aspirin [Aspir-Low] 81 mg PO DAILY 10/29/16 01/31/20 atorvastatin [Lipitor] 20 mg PO DAILY 10/29/16 01/31/20 metoprolol tartrate 12.5 mg PO BID 10/29/16 01/31/20 glucosamine-chondroitin [Osteo 1 tab PO DAILY 12/05/19 01/31/20 Bi-Flex] ondansetron 4 mg PO Q6H PRN #10 tab 12/05/19 01/31/20 cholecalciferol (vitamin D3) 50 50 mcg PO DAILY 12/14/19 01/31/20 mcg (2,000 unit) capsule hydrocortisone acetate 25 mg 25 mg [place] DAILY 12/14/19 01/31/20 rectal suppository levothyroxine 50 mcg tablet 50 mcg PO DAILY 12/14/19 01/31/20 nitroglycerin 0.4 mg sublingual 0.4 mg SL Q5M PRN 12/14/19 01/31/20 tablet omeprazole 40 mg capsule,delayed 40 mg PO DAILY 12/14/19 01/31/20 release triamcinolone acetonide 55 mcg 1 spray BRYCE DAILY 12/14/19 01/31/20 nasal spray aerosol Previous Rx's Medication Instructions Recorded ondansetron 4 mg PO Q6H PRN #10 tab 12/05/19 Allergies Allergy/AdvReac Type Severity Reaction Status Date / Time dry air heat AdvReac Mild runny Uncoded 01/31/20 06:59 nose/sneezing General Stated Complaint: Abd Prob JAMES: 2 Review of Systems All systems reviewed & are unremarkable except as noted in HPI and below PFSH Medical History Abnormal EKG (Acute) ADHD Allergic rhinitis (Acute) Angina pectoris (Chronic) Anorexia (Acute) Anxiety (Chronic) Bright red blood per rectum (Acute) CAD (coronary artery disease) Chest pain (Inactive) Pt. states it turned out to be acid reflux Cough (Acute) Depression (Chronic) Diverticulitis (Inactive) Family history of colon cancer (Acute) GERD (gastroesophageal reflux disease) History of kidney stones (Acute) History of recurrent UTI (urinary tract infection) (Acute) History of rheumatic fever (Acute) HPV (human papilloma virus) infection (Acute) per pt. R/O came back negative Hyperlipidemia (Acute) Hypertension (Chronic) Hypokalemia (Inactive) Hypothyroidism (Chronic) Inflammation of small intestine (Acute) Juvenile rheumatoid arthritis (Acute) Lung nodule (Acute) Nocturnal hypoxia (Acute) Osteoporosis (Chronic) PTSD (post-traumatic stress disorder) (Acute) Pyogenic granuloma (Acute) Seasonal allergies (Acute) Skin cancer of arm (Acute) Sleep apnea (Acute) Smoker (Acute) Upper respiratory infection (Acute) Surgical History History of total hip arthroplasty (Acute) Right S/P panniculectomy (Acute) Family History Father Colon cancer Social History Smoking/Tobacco Use Status: Current every day Alcohol Intake: never Drug use: Never Substance use type: does not use Do you feel safe at home: Yes Do you feel safe in your relationship?: Yes Additional Social history: not in a relationship Exam Narrative Exam Narrative: 1.Const: Well-nourished, Well-developed, appearing stated age 2.Eyes: PERRL, no conjunctival injection, and symmetrical lids. 3.ENT: Atraumatic external nose and ears. Moist MM. Neck: Symmetric, trachea midline, No thyromegaly. 4.CVS: +S1/S2, No murmurs or gallops. Peripheral pulses 2+ and equal in all extremities. Brisk capillary refill in all extremities. 5.RESP: Unlabored respiratory effort. Clear to auscultation bilaterally. No wheezes rales or rhonchi 6.GI: Abdomen distended, notably tender throughout, no subcutaneous crepitus. Bowel sounds notably reduced. Pain on palpation throughout. 7.MSK: Normocephalic/Atraumatic, Extremities w/o deformity or ttp No cyanosis or clubbing, Normal movement of all extremities 8.Skin: Warm, Dry. No rashes or lesions. 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 Sensation grossly intact, no focal neurologic deficits. 10.Psych: (AAO) x3. Appropriate mood and affect Course Vital Signs Vital signs: Vital Signs Temperature 37.2 C 01/31/20 06:52 Pulse 88 01/31/20 06:52 Respiratory Rate 01/31/20 06:52 Blood Pressure 142/73 H 01/31/20 06:52 Pulse Oximetry 92 L 01/31/20 06:52 Temperature 37.2 C 01/31/20 06:52 Temperature Source Temporal Artery Scan 01/31/20 06:52 Pulse 88 01/31/20 06:52 Respiratory Rate 01/31/20 06:52 Respiratory Effort Non-Labored 01/31/20 06:57 Blood Pressure 142/73 H 01/31/20 06:52 Blood Pressure Position Supine 01/31/20 06:52 Pulse Oximetry 92 L 01/31/20 06:52 Oxygen Delivery Method Room Air 01/31/20 06:52 Oxygen Flow Rate 0 01/31/20 06:52 Pain Level 01/31/20 06:52 Sign Out Sign Out Data: Sign Out Comment: Pending CT results and labs. Postop 1 day for colonoscopy. Last updated by Matthieu Abreu DO at 01/31/20 07:29
[2020-01-31] MEDS: Ondansetron 4 MG/2 ML VIAL IVP (07:12)
[2020-01-31] MEDS: Normal Saline 500 ML IV (07:13)
[2020-01-31 07:21] LABS: Abs Immature Grans 0.05 k/cumm (0.0-0.09); Absolute Lymphocyte Count 1.64 k/cumm (1.2-3.4); Absolute Monocyte Count 0.86 k/cumm (0.11-0.7); Basophils % 0.1; Eosinophils % 0.1; HCT 46.5 % (36.0-46.0); Immature Grans % 0.3 %; Lymphocytes % 9.7; Mean Corp. HGB Concentration 34.4 g/dL (32.0-36.0); Mean Corpuscular Hemoglobin 29.2 pg (27.0-33.0); Mean Corpuscular Volume 84.9 fL (80-95); Mean Platelet Volume 9.4 fL (8.0-11.0); Monocytes % 5.1; Neutrophils % 84.7; Platelet Count 292 x1000/uL (130-400); RBC 5.48 m/cumm (4.00-5.20); RBC Distribution Width 13.2 % (11.7-14.6); White Blood Cell Count 16.88 k/cumm (4.4-10.8)
[2020-01-31 07:22] LABS: Absolute Basophil Count 0.02 k/cumm (0.0-0.2); Absolute Eosinophil Count 0.02 k/cumm (0.0-0.7)
[2020-01-31 07:26] LABS: Bilirubin Small (Negative); Blood Moderate (Negative); Clarity Clear (Clear); Glucose Negative (Negative); Ketones Trace mg/dL (Negative); Leukocyte Esterase Negative (Negative); Nitrite Negative (Negative); Specific Gravity 1.025 (1.005-1.025); Urobilinogen 0.2 EU/dL (Up TO 0.2); pH 5.5 (5-8)
--- NOTE | 2020-01-31 07:30 | DI.CT_ITS ---
EXAM: CT ABDOMEN PELVIS WO CLINICAL HISTORY: post colonoscopy, severe pain r/o perf. TECHNIQUE: Imaging Protocol: Axial computed tomography images with coronal and sagittal reformatted images were created and reviewed. COMPARISON: CT CT ABDOMEN PELVIS W from 12/05/2019 FINDINGS: ABDOMEN: Lung Bases: Scarring or atelectasis in the lung bases. Liver: Normal density. No measurable mass. Gallbladder and biliary tract: No radiodense calculus or biliary ductal dilation. Pancreas: Normal density, no abnormal calcifications or inflammatory process. Spleen: Mild splenomegaly. 13.4 cm in length. Kidneys: Normal size, contour and axis.No radiodense stones or obstructive uropathy. No masses seen. Adrenal glands: No mass is seen. Lymph nodes: Within normal limits. Abdominal Aorta: Abdominal portion non-dilated. Atherosclerosis. PELVIS: Bladder:Unremarkable as visualized. Partially obscured from artifact from the patient's right total hip replacement. Bowel: Extensive diverticulosis of the colon. There is thickening of the wall of the sigmoid colon v ersus underdistention. A normal appendix is visualized. No evidence of bowel obstruction. Peritoneal cavity: There is a large amount of air in the abdomen and pelvis. There is a small amount of fluid in the pelvis. Reproductive organs: Unremarkable as visualized. Bones: Degenerative changes. Status post right total hip replacement. Soft Tissues: There is an air filled right inguinal hernia. IMPRESSION: 1. Large pneumoperitoneum. Viscus perforation should be excluded. The site of perforation is not cl early delineated. 2. Small amount of free fluid in the pelvis. 3. Extensive diverticulosis. Bowel wall thickening versus underdistention of the sigmoid colon. RADIATION DOSE DELIVERED: Total DLP DATA REPOSITORY: All CT scans at this facility are submitted to the National Radiology Data Registry (NRDR) Dose Index Registry (DIR) with the [employer] ([employer]). RADIATION OPTIMIZATION: All CT scans at this facility use at least one of these dose optimization te chniques: automated exposure control; mA and/or kV adjustment per patient size (includes targeted exa ms where dose is matched to clinical indication); or iterative reconstruction.
--- NOTE | 2020-01-31 07:30 | RT.EKG_ITS ---
APPROVED REPORT Exam: Resting ECG Patient Location: E HR:92 bpm ECG Measurements Heart Rate 92 AXIS OH 154 P 74 QRSd 82 QRS -39 QT 357 T 28 QTc 442 <Conclusion> Sinus rhythm...normal P axis, V-rate 60- 99 Probable left atrial enlargement...P >50mS, <-0.10mV V1 Inferior infarct, old...Q >35mS, II III aVF
[2020-01-31 07:36] LABS: ALT 27 U/L (14-59); AST 26 U/L (15-37); Albumin 3.8 g/dL (3.4-5.0); Alkaline Phosphatase 65 U/L (46-116); Anion Gap 7.8 mmol/L (3-11); BUN 13 mg/dL (7-18); Bilirubin, Total 1.8 mg/dL (0.2-1.0); CO2 28.2 mmol/L (21.0-32.0); CREATININE 0.82 mg/dL (0.55-1.02); Calcium 8.9 mg/dL (8.5-10.1); Chloride 99 mmol/L (98-107); Glucose 120 mg/dL (74-106); Lipase 91 U/L (73-393); Sodium 135 mmol/L (136-145); Total Protein 7.2 g/dL (6.4-8.2)
[2020-01-31 07:39] LABS: Bacteria Many HPF (Negative); C & S Indicated? No/Sq. Contamination; Casts Negative LPF (Negative); Crystals Negative HPF (Negative); Epithelial Cells Many HPF (Negative); Mucus Negative (Negative); Other Cells Rare Yeast (Negative)
[2020-01-31] MEDS: PIPERACILLIN/TAZO 4.5 GM in Normal Saline 100 ML IVPB (07:45)
--- NOTE | 2020-01-31 08:12 | DI.VRAD_ITS ---
Addendum created by Anup Bishop MD on 01/31/2020 8:15:38 AM EDT The above was read and discussed at approximately 8:15 AM EDT on01/31/2020 with the attending physician Dr. Ruvalcaba Initial report created on 01/31/2020 8:12:41 AM EDT PROCEDURE INFORMATION: Exam: CT Abdomen And Pelvis Without Contrast Exam date and time: 01/31/2020 7:30 AM Age: 64 years old Clinical indication: Other: Post colonoscopy, severe pain R/O perf TECHNIQUE: Imaging protocol: Computed tomography of the abdomen and pelvis without contrast. COMPARISON: CT ABDOMEN PELVIS W 12/05/2019 12:54 PM FINDINGS: Liver: Normal. No mass. Gallbladder and bile ducts: Normal. No calcified stones. No ductal dilation. Pancreas: Normal. No ductal dilation. Spleen: Normal. No splenomegaly. Adrenals: Normal. No mass. Kidneys and ureters: Normal. No hydronephrosis. Stomach and bowel: Severe thickening of the sigmoid colon is again noted. Air-filled large bowel. No appreciable retroperitoneal air about the descending colon and or sigmoid region. Appendix: No evidence of appendicitis. Intraperitoneal space: Pneumoperitoneum. Large amount of air. Finding represents perforation viscus perforation until proven otherwise. Small amount of fluid in the right pelvis. Vasculature: Calcification of the aorta. Lymph nodes: Unremarkable. No enlarged lymph nodes. Bladder: Unremarkable as visualized. Reproductive: Unremarkable as visualized. Bones/joints: Hip arthroplasty on the right. Metallic artifact henders characterization of the pelvic structures. Soft tissues: Unremarkable. IMPRESSION: 1. Pneumoperitoneum. Large amount of air. Finding represents perforation viscus perforation until proven otherwise. Site of perforation not clearly delineated. 2. Severe thickening of the sigmoid colon is again noted. Extensive diverticulosis. 3. Small amount of fluid in the right pelvis. Dictated and Authenticated by: Anup Bishop MD. Ordering:ROSIE Sommers MD
--- NOTE | 2020-01-31 08:23 | W.PREOPHP ---
Date of service: 01/31/20 Time of Service: 08:23 Assessment and Plan Assessment and plan (1) Bowel perforation: Status: Acute Assessment and plan: A\\ 64 year old female s/p colonoscopy with free air today on CT scan, consistent with bowel perforation P\\ Ex-lap, possible bowel resection and anastamosis, possible primary repair Risks, benefits and complications reviewed with the patient. Complications include but are not limited to bleeding, pain, infection, wound dehiscence, anastamostic leak requiering more surgery, abscess formation, incisional hernia, ND, Sepsis, . Questions were entertained and answered to her staisfaction and she wished to proceed. No guarantees were given or implied. Patients daughter Gabi was updated History of Present Illness History of Present Illness Chief Complaint: free air Consults Consult date: 01/31/20 Requesting physician: Matthieu Abreu Narrative: Mrs. Madrigal is a pleasant 64 year old female who underwent a colonoscopy with biopsies yesterday. She felt bloated all day after getting home and didn't feel like eating. She called me in the evening. At that point her pain was improving but she was still very bloated. We discussed going to ER or waiting a little longer and seeing if she continued to improve. her pain got worse so she came to the ER. CT scan unfortunately showed a lot of free air consistent with perforation. Review of Systems Constitutional Constitutional: Denies fever(s), Denies headache(s) and Reports poor appetite Eyes Eyes: Denies change in vision ENT Ears, Nose, Mouth, and Throat: Denies headache(s) and Denies hoarseness Cardiovascular Cardiovascular: Denies chest pain, Denies chest pain at rest, Denies irregular heart rhythm, Denies palpitations and Denies dyspnea Respiratory Respiratory: Denies cough and Denies dyspnea Gastrointestinal Gastrointestinal: Reports as per HPI Genitourinary Genitourinary: Reports system reviewed and no additional complaints, except as documented Neurologic Neurologic: Denies headache(s) Endocrine Endocrine: Denies palpitations [facility] Medical History Abnormal EKG (Acute) ADHD Allergic rhinitis (Acute) Angina pectoris (Chronic) Anorexia (Acute) Anxiety (Chronic) Bright red blood per rectum (Acute) CAD (coronary artery disease) Chest pain (Inactive) Pt. states it turned out to be acid reflux Cough (Acute) Depression (Chronic) Diverticulitis (Inactive) Family history of colon cancer (Acute) GERD (gastroesophageal reflux disease) History of kidney stones (Acute) History of recurrent UTI (urinary tract infection) (Acute) History of rheumatic fever (Acute) HPV (human papilloma virus) infection (Acute) per pt. R/O came back negative Hyperlipidemia (Acute) Hypertension (Chronic) Hypokalemia (Inactive) Hypothyroidism (Chronic) Inflammation of small intestine (Acute) Juvenile rheumatoid arthritis (Acute) Lung nodule (Acute) Nocturnal hypoxia (Acute) Osteoporosis (Chronic) PTSD (post-traumatic stress disorder) (Acute) Pyogenic granuloma (Acute) Seasonal allergies (Acute) Skin cancer of arm (Acute) Sleep apnea (Acute) Smoker (Acute) Upper respiratory infection (Acute) Surgical History History of total hip arthroplasty (Acute) Right S/P panniculectomy (Acute) Family History Father Colon cancer Social History Smoking/Tobacco Use Status: Current every day Alcohol Intake: never Drug use: Never Substance use type: does not use Do you feel safe at home: Yes Do you feel safe in your relationship?: Yes Additional Social history: not in a relationship Meds Home Medications and Allergies Home Medications Medication Instructions Recorded Confirmed Type aspirin [Aspir-Low] 81 mg PO DAILY 10/29/16 01/31/20 History atorvastatin [Lipitor] 20 mg PO DAILY 10/29/16 01/31/20 History metoprolol tartrate 12.5 mg PO BID 10/29/16 01/31/20 History glucosamine-chondroitin [Osteo 1 tab PO DAILY 12/05/19 01/31/20 History Bi-Flex] ondansetron 4 mg PO Q6H PRN #10 tab 12/05/19 01/31/20 Rx cholecalciferol (vitamin D3) 50 50 mcg PO DAILY 12/14/19 01/31/20 History mcg (2,000 unit) capsule hydrocortisone acetate 25 mg 25 mg [place] DAILY 12/14/19 01/31/20 History rectal suppository levothyroxine 50 mcg tablet 50 mcg PO DAILY 12/14/19 01/31/20 History nitroglycerin 0.4 mg sublingual 0.4 mg SL Q5M PRN 12/14/19 01/31/20 History tablet omeprazole 40 mg capsule,delayed 40 mg PO DAILY 12/14/19 01/31/20 History release triamcinolone acetonide 55 mcg 1 spray BRYCE DAILY 12/14/19 01/31/20 History nasal spray aerosol Allergies Allergy/AdvReac Type Severity Reaction Status Date / Time dry air heat AdvReac Mild runny Uncoded 01/31/20 06:59 nose/sneezing Exam Const General: cooperative, comfortable and anxious Orientation: alert and oriented x3 HENMT Head: normocephalic and atraumatic Resp Effort & Inspection: normal respiratory effort Auscultation: clear to auscultation bilaterally Cardio Rate: regular rate Rhythm: regular rhythm Heart Sounds: no gallops, no murmurs and no rubs GI Inspection: distended Palpation: soft, no hepatosplenomegaly and tender (diffuse) with no rebound tenderness Auscultation: hyperactive bowel sounds Results Labs Result diagrams: 01/31/20 07:02 01/31/20 07:02 Labs: Laboratory Results - last 24 hr 01/31/20 01/31/20 01/31/20 07:02 07:02 07:10 WBC 16.88 H RBC 5.48 H Hgb 16.0 H Hct 46.5 H MCV 84.9 MCH 29.2 MCHC 34.4 RDW 13.2 Plt Count 292 MPV 9.4 Immature Gran % 0.3 Neutrophils % 84.7 Lymphocytes % 9.7 Monocytes % 5.1 Eosinophils % 0.1 Basophils % 0.1 Absolute Neutrophils 14.30 H Absolute Lymphocytes 1.64 Absolute Monocytes 0.86 H Absolute Eosinophils 0.02 Absolute Basophils 0.02 Sodium 135 L Potassium 4.0 Chloride 99 Carbon Dioxide 28.2 Anion Gap 7.8 BUN 13 Creatinine 0.82 Estimated GFR/1.73 m2 >= 60.00 Glucose 120 H Calcium 8.9 Total Bilirubin 1.8 H AST 26 ALT 27 Alkaline Phosphatase 65 Total Protein 7.2 Albumin 3.8 Lipase 91 Urine Color Yellow Urine Clarity Clear Urine pH 5.5 Ur Specific [place] 1.025 Urine Protein Trace H Urine Ketones Trace H Urine Blood Moderate H Urine Nitrite Negative Urine Bilirubin Small H Urine Urobilinogen 0.2 Ur Leukocyte Esterase Negative Urine RBC 5-10 H Urine WBC 5-10 Ur Epithelial Cells Many Urine Crystals Negative Urine Bacteria Many Urine Casts Negative Urine Mucus Negative Urine Other Rare yeast Ur Culture Indicated? No/sq. contamination Urine Glucose Negative Last Vital Signs Temp 99.0 F 01/31/20 06:52 Pulse 97 H 01/31/20 08:01 Resp 31 H 01/31/20 08:10 BP 142/82 H 01/31/20 08:01 Pulse Ox 90 L 01/31/20 08:01
[2020-01-31] MEDS: Lactated Ringers 1,000 ML 125 ML IV ×4 (08:45→17:55)
[2020-01-31] MEDS: Lidocaine 2% Multi-Dose 50 ML VIAL (10:20)
--- NOTE | 2020-01-31 11:23 | BOWEL_PTH ---
PATIENT: Jessa Madrigal LOC: U#:[id number] AGE/SX: 64/F ROOM: RE01/31/[address]: Gloria Chavez MD : 1955 BED: A DIS: 02/04/2020 SPEC #: [id number] RECD: 02/01/20 12:39 STATUS: STEPHANY REQ #: [id number] MEJIA: 01/31/20 11:[address]: Gloria Chavez DEPT: Surgical Specimen RECD BY: Maria M Warren ENTERED: 02/01/20 12:40 SP TYPE: Bowel OTHR DR: Judith Osorio Tissues: 1 - APPENDIX INCIDENTAL 2 - BOWEL RESECTION(OTHER) Procedures: GROSS AND MICRO LEVEL 2 GROSS AND MICRO LEVEL 5 Comments: [id number]
[2020-01-31] MEDS: FentaNYL/ROPIvacaine 2 mcg/ml and 0.1% 200 ML CADD Cassette EP (13:05)
--- NOTE | 2020-01-31 14:33 | W.PM.OP ---
Date of service: 01/31/20 Time of Service: 14:33 Operative Note Operative Note DATE OF PROCEDURE: 01/31/20 PRE-OP DIAGNOSIS: perforated bowel POST-OP DIAGNOSIS: same PROCEDURE: Exploratory laparotomy with bowel resection and anstamosis SURGEON: Gloria Chavez FARMWORKER CRANBERRY: Judith Smith ANESTHESIA: GETA (ASA 2/ Vanna Sewell, ADELITA), local and epidural ESTIMATED BLOOD LOSS: 50 PATHOLOGY: none sent (sigmoid colon) COMPLICATIONS: None Patient was transported to: PACU Patient's condition: stable Indications: Mrs. Madrigal is a pleasant 64 year old female who underwent a colonoscopy yesterday with biopsies. Patient returned to the ER late last night with worsening bloating and abdominal pain. CT scan revealed a large amount of free air. Ex-lap with possible bowel resection was recommended. Risks, benefits and complications were reviewed with her and she wished to proceed. No guarantees were given or implied. Findings: 2 cm perforation at the rectosigmoid junction. surrounded by diverticulosis. No enteric spill noted. scarring noted around the rectum Procedure Description: After informed consent was obtained the patient was taken to the Operating room and anesthesia placed an epidural. The patient was then placed on the operating table in a supine position. COVID precautions were maintained. Patient was intubated without difficulty. Once intubated the patients legs were placed in stirrups. A Connor catheter was then placed in a standard sterile fashion. The abdomen was then prepped with Chlorhexidine. The perineum and around the rectum was prepped with iodine. The patient was then draped in a standard fashion. At this point a time out was done. The patients name, , allergies to medications, procedure to be performed, antibiotic given were reviewed. Fire risk was assessed. Next 2% Lidocaine was injected into the dermis along the midline. an 18 cm incision was made with a 10 blade scalpel. Dissection was done with cautery down to the fascia. Any bleeding noted was cauterized. The fascia was then scorred. I was then able to bluntly enter the peritoneum. There was a lot of air noted to escape. There was no fluid and no stool noted. The chong was then placed to retract the abdominal wall. The cecum was inspected. NO injury was identified. The ascending colon and transverse colon was then inspected. Again no injury was identified. The descending colon was normal. At this point I could not get good visualization with the chong retractor. It was removed and the OMNI retractor was assembled and the abdominal wall and small bowel was then retracted. I was then able to more easily visualize the sigmoid colon. Water was placed into the pelvis and while pushing air from the transverse colon down to the sigmoid colon air bubbles were noted. The waster was suctioned out and then just above the recto-sigmoid junction on the lateral aspect a 1.5 cm perforation was noted. An area just below the perforation was identified. The mesentary was transected with the ligasure. Using the curved stapler the colon was stapled. The bowel was gently lifted and using the ligasure the mesentary was transected just above the perforation were I could find a small area without diverticula. The bowel was clamped and cut with a 10 blade. The bowel was measured and the 25 cm circular stapler was opened. The anvil was then placed into the proximal bowel and secured with a 2-0 proline sutures. I then went below and placed the stapler through the rectum. I hade difficulty getting the stapler up to the staple line due to adhesions noted in the pelvis. Adhesions were then transected and eventually I was able to get the stapler close the staple line. The stapler was opened just anterior to the staple line. The stapler was attached to the anvil and closed. Prior to attaching the anvil I made sure that there wasn't any fatty tissue that would get caught in the staple line. Once the tissue was cleared the stapler was tightened. Once tight it was fired. The stapler was opened slightly and removed. The anastamosis was inspected and looked good. There was no tension on the anastamosis. 2 tissue doughnuts were identified and were intact. The colon was then gently clamped above the newly created anastamosis and then air was pumped in to the rectum with a anoscope. The rectum was insufflated. No air leak was appreciated. The fluid was suctioned out of the pelvis. The laps were removed. The small bowel and large bowel were placed back into the pelvis. At this point the appendix was noted to be slightly inflamed so I made the decision to do a incidental appendectomy. The meso-appendix was cut using the ligasure. The base of the appendix was clamped with 2 hemostats. The appendix was transected between the hemostats with a 10 blade. The appendix was removed and placed in formalin. The base of the appendix was suture ligated with 2-0 silk. The abdomen was irrigated with 1.5 L of warm saline. The fluid was suctioned. A small incision was made in the LLQ with a 15 blade and a 10 Fr. drain was placed into the pelvis. The drain was secured with 2-0 proline. At this point a sponge, needle and instrument count was done and it was correct. The fascia was then grasped with cockers. The fascia was closed with 2 #1 Vicryl running sutures. The subcutaneous tissue was irrigated and dried. The skin was closed with keaton. The skin was cleaned and dried. A TIFFANIE dressing was applied over the incision. The patients legs were taken out of stirrups and placed on the operating table. The patient was then transferred to the [facility]. The patient was then woken up and extubated. She was transferred to PACU in stable condition. A second and final sponge, instrument and needle count was done at the end of the case and was correct. The patient tolerated the procedure well and there were no immediate complications.
[2020-01-31] MEDS: PIPERACILLIN/TAZO 3.375 GM in Normal Saline 50 ML IVPB ×2 (16:12→22:06)
[2020-01-31] MEDS: PANTOPRAZOLE 80 MG in Normal Saline 100 ML 10 MG IV (16:13)
--- NOTE | 2020-01-31 16:21 | PT.INNT ---
Date of service: 01/31/20 Time of Service: 16:22 PT Notes Visit Reasons: BOWEL PERFORATION Jessa came into the ICU around 1400 PM and was seen by PT at 4:15 PM for an evalaution. Dr. Chavez and Nurse Rowan were with patient. Dr. Chavez suggested doing initial PT evalaution tomorrow morning so patient could do a lot better mobility-mabry. Jessa suggested the same, stating that she has not had rest for the past three or so days and would like to take the rest of the day resting and sleeping. She is agreeable to participating in the consult tomorrow morning. Nurse Rowan is in agreement of plan. Thank you for the opportunity to participate in the care of this patient. Catherine Childress PT, DPT, CLT [facility] [place], [place]
--- NOTE | 2020-01-31 16:46 | PGE_ITS ---
Date of Service Date of service: 01/31/20 Time of Service: 16:46 Assessment and Plan Assessment and plan (1) Bowel perforation: Status: Acute Assessment and plan: A\\ s/p ex-lap and resection of small piece of sigmoid colon with anastamosis P\\ Clear liquid diet as tolerated Entereg to avoid ileus hopefully (2) DVT prophylaxis: Status: Acute Assessment and plan: Lovenox daily (3) Depression: Status: Chronic Assessment and plan: A\\ Hx of depression, anxiety and PTSD Per daughter Gabi her Mom has been on anti-depressants on and off. Jessa stops the anti-depressants when she feels better. Even prior to surgery she was dealing with increased stress and anxiety and was tearfull at times per daughter Gabi P\\ Consult Dr. Sanches When able to take more po will start on Wellbutrin as long as Jessa agrees Qualifiers: Depression Type: unspecified Qualified Code(s): F32.9 - Major depressive disorder, single episode, unspecified (4) PTSD (post-traumatic stress disorder): Status: Acute (5) Anxiety: Status: Chronic (6) GERD (gastroesophageal reflux disease): Status: None Assessment and plan: A\\ Hx of gerd on omeprazole 40 mg daily at home P\\ Continue IV protonix until she is eating more Qualifiers: Esophagitis presence: esophagitis presence not specified Qualified Code(s): K21.9 - Gastro-esophageal reflux disease without esophagitis (7) Hypothyroidism: Status: Chronic Assessment and plan: P\\ Continue home medication If unable to tolerate will give IV Qualifiers: Hypothyroidism type: unspecified Qualified Code(s): E03.9 - Hypothyroidism, unspecified (8) Hypertension: Status: Chronic Assessment and plan: A\\ Normaly on Metoprolol. BPs in the low to mid 100's P\\ Hold Metoprolol until BP comes up a little Will have prn IV medication available Qualifiers: Hypertension type: essential hypertension Qualified Code(s): I10 - Essential (primary) hypertension Subjective Subjective Interval history since last seen: Jessa is doing well post-op. She states her pain is well controlled. She feels much better then prior to surgery. Sats are a bit low. They do come up when she takes a deep breath. Had a long conversation with javier Ashley over phone. Gabi expressed concern for her mothers state of mind. Jessa has been on antidepressants before. Gabi would like her MOM to get back on an anti-depressant. Gabi tells me that her Mon has a lot of anxiety and a history of PTSD. Lately she has been under stress because she is moving and then with this health issue she feels that her MOM could benefit from an anti-depressant. I did call Seda PCP and I was told that she was on Wellbutrin SR 150 mg BID in 2017. Per Gabi as soon as her Mom feels well on the medication she will stop it. I will discuss starting an anti-depressant again with Jessa tomorrow. I will also contact Dr. Sanches for a consult. Exam Resp Auscultation: clear to auscultation bilaterally Cardio Rate: regular rate Rhythm: regular rhythm GI Inspection: incision (dressing intact) and other (LILLY in place with serosanguinous discharge) Palpation: soft and tender (mildly tender around the midline) Objective Objective Clinical Data: Abnormal lab results 01/31/20 01/31/20 01/31/20 Range/Units 07:02 07:02 07:10 WBC 16.88 H (4.4-10.8) k/cumm RBC 5.48 H (4.00-5.20) m/cumm Hgb 16.0 H (12.0-15.5) g/dL Hct 46.5 H (36.0-46.0) % Absolute Neutrophils 14.30 H (1.2-6.7) k/cumm Absolute Monocytes 0.86 H (0.11-0.7) k/cumm Sodium 135 L (136-145) mmol/L Glucose 120 H (74-106) mg/dL Total Bilirubin 1.8 H (0.2-1.0) mg/dL Urine Protein Trace H (Negative) mg/dL Urine Ketones Trace H (Negative) mg/dL Urine Blood Moderate H (Negative) Urine Bilirubin Small H (Negative) Urine RBC 5-10 H (0-2) HPF Vital Signs Temperature 99.5 F 01/31/20 16:13 Temperature Source Temporal Artery Scan 01/31/20 15:29 Pulse 99 H 01/31/20 15:29 Pulse 96 H 01/31/20 08:10 Respiratory Rate 25 H 01/31/20 14:10 Respiratory Effort 07/21/20 15:29 Respiratory Depth Normal 01/31/20 15:29 Respiratory Pattern Normal 01/31/20 15:29 Blood Pressure 114/55 L 01/31/20 14:10 Blood Pressure Mean 96 01/31/20 08:01 Blood Pressure Position Supine 01/31/20 06:52 Pulse Oximetry 90 L 01/31/20 15:29 Respiratory End-tidal CO2 30 01/31/20 14:10 Oxygen Delivery Method Room Air 01/31/20 06:52 Oxygen Flow Rate 3 01/31/20 14:10 Pain Level 0 01/31/20 15:29 Intake & Output 01/30/20 01/31/20 01/31/20 23:59 11:59 23:59 Intake Total 1610 / 2464.167 854.167 / 2464.167 Balance 1610 / 2464.167 854.167 / 2464.167 Weight 113 lb 0.002 oz 113 lb 0.002 oz Intake: IV 1610 / 2464.167 854.167 / 2464.167 Other: Urine Color Yellow Yellow Urine Appearance Clear Clear Emesis Description None Laboratory Results WBC 16.88 k/cumm (4.4-10.8) H 01/31/20 07:02 RBC 5.48 m/cumm (4.00-5.20) H 01/31/20 07:02 Hgb 16.0 g/dL (12.0-15.5) H 01/31/20 07:02 Hct 46.5 % (36.0-46.0) H 01/31/20 07:02 MCV 84.9 fL (80-95) 01/31/20 07:02 MCH 29.2 pg (27.0-33.0) 01/31/20 07:02 MCHC 34.4 g/dL (32.0-36.0) 01/31/20 07:02 RDW 13.2 % (11.7-14.6) 01/31/20 07:02 Plt Count 292 x1000/uL (130-400) 01/31/20 07:02 MPV 9.4 fL (8.0-11.0) 01/31/20 07:02 Immature Gran % 0.3 % 01/31/20 07:02 Neutrophils % 84.7 01/31/20 07:02 Lymphocytes % 9.7 01/31/20 07:02 Monocytes % 5.1 01/31/20 07:02 Eosinophils % 0.1 01/31/20 07:02 Basophils % 0.1 01/31/20 07:02 Absolute Neutrophils 14.30 k/cumm (1.2-6.7) H 01/31/20 07:02 Absolute Lymphocytes 1.64 k/cumm (1.2-3.4) 01/31/20 07:02 Absolute Monocytes 0.86 k/cumm (0.11-0.7) H 01/31/20 07:02 Absolute Eosinophils 0.02 k/cumm (0.0-0.7) 01/31/20 07:02 Absolute Basophils 0.02 k/cumm (0.0-0.2) 01/31/20 07:02 Sodium 135 mmol/L (136-145) L 01/31/20 07:02 Potassium 4.0 mmol/L (3.5-5.1) 01/31/20 07:02 Chloride 99 mmol/L (98-107) 01/31/20 07:02 Carbon Dioxide 28.2 mmol/L (21.0-32.0) 01/31/20 07:02 Anion Gap 7.8 mmol/L (3-11) 01/31/20 07:02 BUN 13 mg/dL (7-18) 01/31/20 07:02 Creatinine 0.82 mg/dL (0.55-1.02) 01/31/20 07:02 Estimated GFR/1.73 m2 >= 60.00 (mL/min/1.73m2) 01/31/20 07:02 Glucose 120 mg/dL (74-106) H 01/31/20 07:02 Calcium 8.9 mg/dL (8.5-10.1) 01/31/20 07:02 Total Bilirubin 1.8 mg/dL (0.2-1.0) H 01/31/20 07:02 AST 26 U/L (15-37) 01/31/20 07:02 ALT 27 U/L (14-59) 01/31/20 07:02 Alkaline Phosphatase 65 U/L (46-116) 01/31/20 07:02 Total Protein 7.2 g/dL (6.4-8.2) 01/31/20 07:02 Albumin 3.8 g/dL (3.4-5.0) 01/31/20 07:02 Lipase 91 U/L (73-393) 01/31/20 07:02 Urine Color Yellow (Yellow) 01/31/20 07:10 Urine Clarity Clear (Clear) 01/31/20 07:10 Urine pH 5.5 (5-8) 01/31/20 07:10 Ur Specific [place] 1.025 (1.005-1.025) 01/31/20 07:10 Urine Protein Trace mg/dL (Negative) H 01/31/20 07:10 Urine Ketones Trace mg/dL (Negative) H 01/31/20 07:10 Urine Blood Moderate (Negative) H 01/31/20 07:10 Urine Nitrite Negative (Negative) 01/31/20 07:10 Urine Bilirubin Small (Negative) H 01/31/20 07:10 Urine Urobilinogen 0.2 EU/dL (Up TO 0.2) 01/31/20 07:10 Ur Leukocyte Esterase Negative (Negative) 01/31/20 07:10 Urine RBC 5-10 HPF (0-2) H 01/31/20 07:10 Urine WBC 5-10 HPF (0-5) 01/31/20 07:10 Ur Epithelial Cells Many HPF (Negative) 01/31/20 07:10 Urine Crystals Negative HPF (Negative) 01/31/20 07:10 Urine Bacteria Many HPF (Negative) 01/31/20 07:10 Urine Casts Negative LPF (Negative) 01/31/20 07:10 Urine Mucus Negative (Negative) 01/31/20 07:10 Urine Other Rare yeast (Negative) 01/31/20 07:10 Ur Culture Indicated? No/sq. contamination 01/31/20 07:10 Urine Glucose Negative mg/dL (Negative) 01/31/20 07:10 Patient ABO/Rh B Negative 01/31/20 07:40 Antibody Screen Negative 01/31/20 07:40
[2020-01-31] MEDS: Ketorolac 15 MG/ML VIAL IVP ×2 (17:20→22:10)
[2020-01-31] MEDS: ACETAMINOPHEN 1,000 MG/100 ML BTL 400 MG IVPB ×2 (17:21→23:45)
[2020-01-31] MEDS: Enoxaparin 40 MG/0.4 ML SYR SC (17:22)
--- NOTE | 2020-01-31 21:38 | RESPIRATORY ---
RT spoke with patient concerning her sleep apnea listed in her medical record. Patient stated she has a sleep study performed about a year ago and was prescribed a CPAP machine. Patient couldn't stand pressure and ended up return the machine back to the company. RT explained what the machine does for her and instructed patient to advocate to have pressures reduced. Patient is interested in trying to use a CPAP machine again as currently desats at night and doesn't sleep very well. Patient was told RT will follow up with Maryan to see what needs to be done to get her a CPAP machine again.
--- NOTE | 2020-01-31 22:05 | NUR.NOTE ---
pt daughter called, aske if she could trade bracelet with her sister to let her come in too. TOld her policy will not allow this. Nursing Note:
[2020-02-01] VITALS (111 sets, daily range): BP systolic 91–129; BP diastolic 52–93; PULSE 56–93; RESP 13–34; TEMP 36.4–36.8; O2SAT 87–97
[2020-02-01] MEDS: Lactated Ringers 1,000 ML 125 ML IV (01:55)
[2020-02-01] MEDS: PANTOPRAZOLE 80 MG in Normal Saline 100 ML 10 MG IV ×3 (02:10→22:54)
[2020-02-01] MEDS: Ketorolac 15 MG/ML VIAL IVP ×4 (04:19→22:42)
[2020-02-01] MEDS: PIPERACILLIN/TAZO 3.375 GM in Normal Saline 50 ML IVPB ×4 (04:21→22:43)
[2020-02-01] MEDS: ACETAMINOPHEN 1,000 MG/100 ML BTL 400 MG IVPB ×3 (06:06→18:55)
[2020-02-01] MEDS: Levothyroxine 50 MCG TAB PO (06:06)
[2020-02-01 07:37] LABS: Abs Immature Grans 0.02 k/cumm (0.0-0.09); Absolute Basophil Count 0.01 k/cumm (0.0-0.2); Absolute Eosinophil Count 0.02 k/cumm (0.0-0.7); Absolute Lymphocyte Count 1.32 k/cumm (1.2-3.4); Absolute Monocyte Count 0.54 k/cumm (0.11-0.7); Absolute Neutrophil Count 7.99 k/cumm (1.2-6.7); Basophils % 0.1; Eosinophils % 0.2; HCT 34.5 % (36.0-46.0); HGB 11.4 g/dL (12.0-15.5); Immature Grans % 0.2 %; Lymphocytes % 13.3; Mean Corpuscular Hemoglobin 28.9 pg (27.0-33.0); Mean Corpuscular Volume 87.6 fL (80-95); Mean Platelet Volume 9.6 fL (8.0-11.0); Monocytes % 5.5; Neutrophils % 80.7; Platelet Count 204 x1000/uL (130-400); RBC 3.94 m/cumm (4.00-5.20); RBC Distribution Width 13.3 % (11.7-14.6)
[2020-02-01 07:50] LABS: Anion Gap 7.8 mmol/L (3-11); BUN 12 mg/dL (7-18); CO2 25.2 mmol/L (21.0-32.0); CREATININE 0.88 mg/dL (0.55-1.02); Calcium 7.4 mg/dL (8.5-10.1); Chloride 106 mmol/L (98-107); Glucose 100 mg/dL (74-106); Magnesium 1.4 mg/dL (1.8-2.4); Potassium 3.5 mmol/L (3.5-5.1); Sodium 139 mmol/L (136-145)
--- NOTE | 2020-02-01 07:51 | INITIAL_ITS ---
- If Service Date Differs Date of service: 02/01/20 Time of Service: 07:51 Care Management Initial Assess REASON FOR HOSPITALIZATION:: Bowel perforation status post surgical repair PAST MEDICAL HISTORY/PAST SURGICAL HISTORY:: Abnormal EKG (Acute). ADHD. Al lergic rhinitis (Acute). Angina pectoris (Chronic). Anorexia (Acute). Anxiety (Chronic). Bright red blood per rectum (Acute). CAD (coronary artery disease). Chest pain (Inactive). Pt. states it turned out to be acid reflux. Cough (Acute). Depression (Chronic). Diverticulitis (Inactive). Family history of colon cancer (Acute). GERD (gastroesophageal reflux disease). History of kidney stones (Acute). History of recurrent UTI (urinary tract infection) (Acute). History of rheumatic fever (Acute). HPV (human papilloma virus) infection (Acute). per pt. R/O came back negative. Hyperlipidemia (Acute). Hypertension (Chronic). Hypokalemia (Inactive). Hypothyroidism (Chronic). Inflammation of small intestine (Acute). Juvenile rheumatoid arthritis (Acute). Lung nodule (Acute). Nocturnal hypoxia (Acute). Osteoporosis (Chronic). PTSD (post-traumatic stress disorder) (Acute). Pyogenic granuloma (Acute). Seasonal allergies (Acute). Skin cancer of arm (Acute). Sleep apnea (Acute). Smoker (Acute). 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 She is in the process of moving, and has a secured place of residence. Jessa is independent with all ADL's and transportation. She states she has good family and friend support. CURRENT FUNCTIONAL STATUS:: Jessa is alert and engaged during assessment, she does itch constant when CM is in the room. CM reported to her provider standing near by. She does have an epidural in place, she states she is doing well status post, exploratory laparotomy with bowel resection and anstamosis. Jessa states she will plan to return home when she is medically clear she does not anticiapte any additional services. ADVANCE DIRECTIVES:: None on file CM will review and offer forms Has patient been provided with info about the portal/API?: Yes Did the patient sign up for the portal?: No (Continue to offer ) CODE STATUS:: Full Code INSURANCE COVERAGE / FINANCIAL ISSUES:: [facility] CURRENT HOME/COMMUNITY SERVICES/EQUIPMENT:: No current services PRIMARY CARE PHYSICIAN:: POTENTIAL DISCHARGE NEEDS:: Anticipate close follow up with primary care and surgical provider after discharge. PATIENT/FAMILY EDUCATION NEEDS:: Discharge education, limitations and follow up plan of care including ask me three and self management. ANTICIPATED BARRIERS TO DISCHARGE:: No identified barriers. TRANSPORTATION:: Via private car with family at time of discharge. PLAN:: Jessa is receiving care in the ICU. Anticipate she will be discharged home when medically ready. Per provider a consult has been requested of , CM has notified the provider of request for consult. Services to be determine, CM will continue to assess for discharge needs and coordinate services.
[2020-02-01 08:08] LABS: COVID-19 RT-PCR UVMMC Result Negative (Negative)
--- NOTE | 2020-02-01 08:44 | W.PM.PROGNOT ---
Date of Service Date of service: 02/01/20 Time of Service: 07:15 Assessment and Plan Assessment and plan (1) Bowel perforation: Status: Acute Assessment and plan: A\\ s/p ex-lap and resection of small piece of sigmoid colon with anastamosis P\\ Clear liquid diet as tolerated Entereg to avoid ileus hopefully (2) DVT prophylaxis: Status: Acute Assessment and plan: Lovenox daily (3) Depression: Status: Chronic Assessment and plan: A\\ Hx of depression, anxiety and PTSD Per daughter Gabi her Mom has been on anti-depressants on and off. Jessa stops the anti-depressants when she feels better. Even prior to surgery she was dealing with increased stress and anxiety and was tearfull at times per daughter Gabi P\\ Consult Dr. Sanches When able to take more po will start on Wellbutrin Qualifiers: Depression Type: unspecified Qualified Code(s): F32.9 - Major depressive disorder, single episode, unspecified (4) PTSD (post-traumatic stress disorder): Status: Acute (5) Anxiety: Status: Chronic (6) GERD (gastroesophageal reflux disease): Status: None Assessment and plan: A\\ Hx of gerd on omeprazole 40 mg daily at home P\\ Continue IV protonix until she is eating more Qualifiers: Esophagitis presence: esophagitis presence not specified Qualified Code(s): K21.9 - Gastro-esophageal reflux disease without esophagitis (7) Hypothyroidism: Status: Chronic Assessment and plan: P\\ Continue home medication If unable to tolerate will give IV Qualifiers: Hypothyroidism type: unspecified Qualified Code(s): E03.9 - Hypothyroidism, unspecified (8) Hypertension: Status: Chronic Assessment and plan: A\\ Normaly on Metoprolol. BPs in the low to mid 100's P\\ Hold Metoprolol until BP comes up a little Will have prn IV medication available Qualifiers: Hypertension type: essential hypertension Qualified Code(s): I10 - Essential (primary) hypertension Subjective Subjective Interval history since last seen: Jessa is doing well. She is hungry. She is not passing flatus yet. No N/V on clear liquids. No fevers. Bp up a little. Sats better. Exam HENND Head: normocephalic and atraumatic Resp Effort & Inspection: normal respiratory effort Auscultation: crackles Cardio Rate: regular rate Rhythm: regular rhythm GI Inspection: incision (bandage with a small amount of bleeding) Palpation: soft and nontender Other: LILLY with serosanguinous fluid Objective Objective Clinical Data: Abnormal lab results 02/01/20 02/01/20 Range/Units 06:55 06:55 RBC 3.94 L (4.00-5.20) m/cumm Hgb 11.4 L D (12.0-15.5) g/dL Hct 34.5 L D (36.0-46.0) % Absolute Neutrophils 7.99 H (1.2-6.7) k/cumm Calcium 7.4 L (8.5-10.1) mg/dL Magnesium 1.4 L (1.8-2.4) mg/dL Vital Signs Temperature 98.2 F 02/01/20 08:06 Temperature Source Temporal Artery Scan 02/01/20 08:06 Pulse 65 02/01/20 06:00 Pulse 78 02/01/20 06:20 Respiratory Rate 28 H 02/01/20 06:20 Respiratory Effort 02/01/20 08:06 Respiratory Depth Normal 02/01/20 08:06 Respiratory Pattern Normal 02/01/20 08:06 Blood Pressure 91/57 L 02/01/20 06:00 Blood Pressure Mean 64 02/01/20 06:00 Blood Pressure Position Supine 01/31/20 06:52 Pulse Oximetry 93 L 02/01/20 06:20 Respiratory End-tidal CO2 30 01/31/20 14:10 Oxygen Delivery Method OxyMask 02/01/20 08:06 Oxygen Flow Rate 3 02/01/20 08:06 Pain Level 0 02/01/20 08:06 Intake & Output 01/31/20 01/31/20 02/01/20 11:59 23:59 11:59 Intake Total 1610 / 3183.750 1573.750 / 3183.750 1554.5 / 1554.5 Output Total 395 / 395 565 / 565 Balance 1610 / 2788.750 1178.750 / 2788.750 989.5 / 989.5 Weight 113 lb 0.002 oz 113 lb 0.002 oz 130 lb 1.164 oz Intake: IV 1610 / 3183.750 1573.750 / 3183.750 1254.5 / 1254.5 Oral 300 / 300 Output: Drainage Left Abdomen Urine 300 / 300 500 / 500 Other: Urine Color Yellow Yellow Yellow Urine Appearance Clear Clear Clear Urine Odor None None Emesis Description None Voiding Methods Indwelling Catheter Indwelling Catheter Laboratory Results WBC 9.90 k/cumm (4.4-10.8) D 02/01/20 06:55 RBC 3.94 m/cumm (4.00-5.20) L 02/01/20 06:55 Hgb 11.4 g/dL (12.0-15.5) L D 02/01/20 06:55 Hct 34.5 % (36.0-46.0) L D 02/01/20 06:55 MCV 87.6 fL (80-95) 02/01/20 06:55 MCH 28.9 pg (27.0-33.0) 02/01/20 06:55 MCHC 33.0 g/dL (32.0-36.0) 02/01/20 06:55 RDW 13.3 % (11.7-14.6) 02/01/20 06:55 Plt Count 204 x1000/uL (130-400) 02/01/20 06:55 MPV 9.6 fL (8.0-11.0) 02/01/20 06:55 Immature Gran % 0.2 % 02/01/20 06:55 Neutrophils % 80.7 02/01/20 06:55 Lymphocytes % 13.3 02/01/20 06:55 Monocytes % 5.5 02/01/20 06:55 Eosinophils % 0.2 02/01/20 06:55 Basophils % 0.1 02/01/20 06:55 Absolute Neutrophils 7.99 k/cumm (1.2-6.7) H 02/01/20 06:55 Absolute Lymphocytes 1.32 k/cumm (1.2-3.4) 02/01/20 06:55 Absolute Monocytes 0.54 k/cumm (0.11-0.7) 02/01/20 06:55 Absolute Eosinophils 0.02 k/cumm (0.0-0.7) 02/01/20 06:55 Absolute Basophils 0.01 k/cumm (0.0-0.2) 02/01/20 06:55 Sodium 139 mmol/L (136-145) 02/01/20 06:55 Potassium 3.5 mmol/L (3.5-5.1) 02/01/20 06:55 Chloride 106 mmol/L (98-107) 02/01/20 06:55 Carbon Dioxide 25.2 mmol/L (21.0-32.0) 02/01/20 06:55 Anion Gap 7.8 mmol/L (3-11) 02/01/20 06:55 BUN 12 mg/dL (7-18) 02/01/20 06:55 Creatinine 0.88 mg/dL (0.55-1.02) 02/01/20 06:55 Estimated GFR/1.73 m2 >= 60.00 (mL/min/1.73m2) 02/01/20 06:55 Glucose 100 mg/dL (74-106) 02/01/20 06:55 Calcium 7.4 mg/dL (8.5-10.1) L 02/01/20 06:55 Magnesium 1.4 mg/dL (1.8-2.4) L 02/01/20 06:55 Total Bilirubin 1.8 mg/dL (0.2-1.0) H 01/31/20 07:02 AST 26 U/L (15-37) 01/31/20 07:02 ALT 27 U/L (14-59) 01/31/20 07:02 Alkaline Phosphatase 65 U/L (46-116) 01/31/20 07:02 Total Protein 7.2 g/dL (6.4-8.2) 01/31/20 07:02 Albumin 3.8 g/dL (3.4-5.0) 01/31/20 07:02 Lipase 91 U/L (73-393) 01/31/20 07:02 Urine Color Yellow (Yellow) 01/31/20 07:10 Urine Clarity Clear (Clear) 01/31/20 07:10 Urine pH 5.5 (5-8) 01/31/20 07:10 Ur Specific [place] 1.025 (1.005-1.025) 01/31/20 07:10 Urine Protein Trace mg/dL (Negative) H 01/31/20 07:10 Urine Ketones Trace mg/dL (Negative) H 01/31/20 07:10 Urine Blood Moderate (Negative) H 01/31/20 07:10 Urine Nitrite Negative (Negative) 01/31/20 07:10 Urine Bilirubin Small (Negative) H 01/31/20 07:10 Urine Urobilinogen 0.2 EU/dL (Up TO 0.2) 01/31/20 07:10 Ur Leukocyte Esterase Negative (Negative) 01/31/20 07:10 Urine RBC 5-10 HPF (0-2) H 01/31/20 07:10 Urine WBC 5-10 HPF (0-5) 01/31/20 07:10 Ur Epithelial Cells Many HPF (Negative) 01/31/20 07:10 Urine Crystals Negative HPF (Negative) 01/31/20 07:10 Urine Bacteria Many HPF (Negative) 01/31/20 07:10 Urine Casts Negative LPF (Negative) 01/31/20 07:10 Urine Mucus Negative (Negative) 01/31/20 07:10 Urine Other Rare yeast (Negative) 01/31/20 07:10 Ur Culture Indicated? No/sq. contamination 01/31/20 07:10 Urine Glucose Negative mg/dL (Negative) 01/31/20 07:10 COVID-19 PCR Negative (Negative) 01/31/20 08:15 Nasopharyn COVID-19 PCR Not Applicable 01/31/20 08:15 Ref Test Perform Site [facility] lab 01/31/20 08:15 Patient ABO/Rh B Negative 01/31/20 07:40 Antibody Screen Negative 01/31/20 07:40
[2020-02-01] MEDS: FentaNYL/ROPIvacaine 2 mcg/ml and 0.1% 200 ML CADD Cassette EP (09:30)
--- NOTE | 2020-02-01 09:44 | IN_ITS ---
Date of service: 02/01/20 Time of Service: 09:44 PT Notes Visit Reasons: BOWEL PERFORATION Physical Therapy Inpatient Initial Evaluation Date: 02/01/2020 Referring Doctor: Gloria Chavez MD PT Orders: PT CONSULT: Exacerbation of chronic condition Precautions: Fall. Standard. Activity as tolerated. Patient Profile/Admitting Diagnosis: Jessa is a 64-year-old female who presented to the ED on 2019 with severe abdominal pain, bloating, nausea and inability to eat anything. She is status colonoscopy on 01/30/2020. She was diagnosed with bowel perforation and is status post exploratory laparotomy with bowel resection and anastomosis on postoperative day 1. PMHX: Medical History Abnormal EKG (Acute) ADHD Allergic rhinitis (Acute) Angina pectoris (Chronic) Anorexia (Acute) Anxiety (Chronic) Bright red blood per rectum (Acute) CAD (coronary artery disease) Chest pain (Inactive) Pt. states it turned out to be acid reflux Cough (Acute) Depression (Chronic) Diverticulitis (Inactive) Family history of colon cancer (Acute) GERD (gastroesophageal reflux disease) History of kidney stones (Acute) History of recurrent UTI (urinary tract infection) (Acute) History of rheumatic fever (Acute) HPV (human papilloma virus) infection (Acute) per pt. 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 She has a flight of steps on her bedroom states that for while she recovers after she goes home from the hospital. She is independent with all aspects of ADLs without the need for an assistive ambulatory device nor adaptive equipment. Equipment Owned/DME: None Subjective: Jessa reports being lightheaded when she stood up from her chair today and was not sure how much she is able to do. She is home and out that she was able to do great with ambulation activity using a front wheeled walker. She continues to report soreness in her abdominal area. Objective: General Observation: LILLY drain in place. Connor catheter in place. Telemetry monitoring in place. Oxygen supplementation on 3 L/min via NC. Mental Status: Alert and oriented x4 Pain: 4?5/10 in abdominal area with movement Vital Signs: HR high of 112 bpm during ambulation activity, oxygen duration of 91% on 2 L of oxygen ROM: Right Upper Extremity: Shoulder Flexion WFL. Shoulder abduction WFL. Elbow flexion WFL. Wrist flexion WFL. Opening and closing of hand WFL. Left Upper Extremity: Shoulder Flexion WFL. Shoulder abduction WFL. Elbow flexion WFL. Wrist flexion WFL. Opening and closing of hand WFL. Right Lower Extremity: Hip flexion WFL. Hip abduction WFL. Knee flexion WFL. Ankle dorsiflexion WFL. Ankle plantarflexion WFL. Left Lower Extremity: Hip flexion WFL. Hip abduction WFL. Knee flexion WFL. Ankle dorsiflexion WFL. Ankle plantarflexion WFL. Strength: Right Upper Extremity: Shoulder flexors 4/5. Shoulder abductors 45. Elbow flexors 4/5. Elbow extensors 4/5. Ballet Professor strong. Left Upper Extremity: Shoulder flexors 4/5. Shoulder abductors 45. Elbow flexors 4/5. Elbow extensors 4/5. Ballet Professor strong. Right Lower Extremity: Hip flexors 4-/5. Hip abductors 4-/5. Knee flexors 4-/5. Knee extensors 4-/5. Ankle dorsiflexors 4-/5. Ankle plantarflexors 4-/5. Left Lower Extremity: Hip flexors 4-/5. Hip abductors 4-/5. Knee flexors 4-/5. Knee extensors 4-/5. Ankle dorsiflexors 4-/5. Ankle plantarflexors 4-/5. Sensation: Intact as to pain and pressure on bilateral lower extremities. Bed Mobility/Transfers: Supine to sit SBA Sit to supine SBA Sit to stand CGA Stand to sit CGA Bed to chair CGA Chair to bed CGA Gait: 350 with FWW with CGA. Step-through gait pattern. Decreased natasha. No report of increased pain in surgical incision. Balance: Static Sitting: Normal Dynamic Sitting: Normal Static Standing: Fair Dynamic Standing: Fair Special Tests: Mobility Limitations Standardized Measure [facility] AM-PAC 6 clicks Basic Mobility Inpatient Short Form: Raw Score: 18 CMS Score: 47% deficit Informed Consent/Education: Patient instructed in purpose of PT consult and plan of care. Assessment: Jessa demonstrates functional mobility decline requiring the use of front wheeled walker for all mobility ADL performance, generalized weakness, difficulty with walking, and decreased activity tolerance due to postoperative status. Jessa is a 64-year-old female who presented to the ED on 2019 with severe abdominal pain, bloating, nausea and inability to eat anything. She is status colonoscopy on 01/30/2020. She was diagnosed with bowel perforation and is status post exploratory laparotomy with bowel resection and anastomosis on postoperative day 1. Patient presents with clinical signs and symptoms consistent with c urrent/admitting diagnoses that have resulted to mobility limitations, gait instability, generalized weakness, and impairment of motor control as demonstrated by the following impairment level findings: 1. Decreased strength to B LE major muscle groups 2. Impaired sitting/standing balance 3. Impaired activity tolerance Impairments are contributing to the following functional limitations: 1. Dependent bed mobility skills 2. Increased dependence with transfers 3. Inability to safely ambulate without assistive device and physical assistance 4. Increase completion time for mobility ADL performance 5. Increased fall risk 6. Inability to negotiate steps alone safely Patient is assessed as a 18211 moderate complexity based on the following: History: 64-year-old female [id number] moderate with impairment level findings, functional limitations, and past medical history as indicated above Examination: Demonstrable impairment in strength, balance, and mobility level with underlying impairments and functional limitations as documented above Presentation: Evolving Decision Making: complexity Goals: Goals X 3 days 1. Supine-Sit independent 2. Sit-Supine independent 3. Sit-Stand independent 4. Stand-Sit independent 5. Bed-Chair independent 6. Chair-Bed independent 7. Independent gait on level surface with use of least restrictive device for at least 300 feet without report of pain nor dyspnea 8. Independent stair negotiation while holding onto bilateral rails for at least 10 steps without report of pain nor dyspnea 9. Independent with home exercise program 10. Good static and dynamic standing balance/tolerance Plan of Care/Treatment Plan: 1-2x/day, 7 days/week x 1 week. Plan of care has been reviewed with the CAKE DECORATOR providing the service under Physical Therapy direction. Initiate Physical Therapy intervention for strengthening, bed mobility, transfers, gait, stairs, balance training, use of assistive device. DISCHARGE RECOMMENDATIONS: Jessa will require front wheel walker to maximize independence and reduce fall risk at home. Home when medically cleared by MD. patient will benefit from home health PT services in order to progress mobility level using least restrictive assistive ambulatory device, assess home safety, identify additional equipment needs, and establish a functional maintenance program that will increase ability of patient to remain at home. TREATMENT CODE/TIME: 90700 x 25 minutes, [id number] x 11 minutes beginning at 9:44 AM. Thank you for the opportunity to participate in the care of this patient. Catherine Childress PT, DPT, CLT [facility] [place], [place]
[2020-02-01] MEDS: Lactated Ringers 1,000 ML 80 ML IV ×2 (10:22→22:44)
[2020-02-01] MEDS: Normal Saline Flush 10 ML SYR ×2 (10:24→16:07)
--- NOTE | 2020-02-01 13:10 | PDOC.ANES ---
Date of service: 02/01/20 Time of Service: 13:11 Anesthesia Note Report Anesthesia Note: Daily epidural management. Pain level has been 0-4/10 since surgery, good leg strength, and patient able to ambulate. VSS, denies nausea, denies SOB. Reinforced use of PCEA button, especially prior to movement and ambulation. Epidural catheter intact at 15 cm, dressing dry. Plan to maintain same infusion at 8ml/hr and re-evaluate again tomorrow.
--- NOTE | 2020-02-01 14:02 | PT.INTREAT ---
Date of service: 02/01/20 Time of Service: 14:29 PT Notes Visit Reasons: BOWEL PERFORATION Inpatient Physical Therapy Treatment Note [facility] Date: 02/01/20 PRECAUTIONS: Fall SUBJECTIVE: Jessa is pleasant and agreeable to participating in PT. She reports that she is feeling very tired this afternoon, and would like to nap after PT session. OBJECTIVE: PAIN: No c/o pain BED MOBILITY/TRANSFERS Supine?sit: S with HOB flat Sit?supine: S with HOB flat Sit-stand: S Stand-sit: S GAIT: Assistive Device: FWW Weight Bearing: Full Assist: SBA Distance: 350' THEREX: Patient completed several gentle lower extremity strengthening exercises, as per flow sheet. TOILETING: Patient was incontinent of stool requiring Max A ASSESSMENT: Patient tolerated session well without complaint of pain. She would benefit from continued global strengthening and further gait training for improved mobility and to return to baseline level of function. PLAN: Continue with PT's POC TREATMENT CODE/TIME: 30 minutes; [id number] x2
--- NOTE | 2020-02-01 15:33 | PHA.REVIEW ---
Pharmacy Admission Review - Admission Clinical Review (Last Updated 01/31/20 @ 16:54 by Gloria Chavez MD) DVT prophylaxis (Acute) PTSD (post-traumatic stress disorder) (Acute) Bowel perforation (Acute) dry air heat Adverse Reaction (Mild, Uncoded 01/31/20 06:59) runny nose/sneezing Height 5 ft Weight 59 kg - Renal Dosing Renal Dosing: BUN 12 mg/dL (7-18) 02/01/20 06:55 Creatinine 0.88 mg/dL (0.55-1.02) 02/01/20 06:55 Medications needing adjustments: Reviewed List of meds needing interventions: All meds ok - Anticoagulation Anticoagulation: Hgb 11.4 g/dL (12.0-15.5) L D 02/01/20 06:55 Hct 34.5 % (36.0-46.0) L D 02/01/20 06:55 Plt Count 204 x1000/uL (130-400) 02/01/20 06:55 Creatinine 0.88 mg/dL (0.55-1.02) 02/01/20 06:55 DVT Prohphylaxis: Reviewed Medications: Enoxaparin Therapeutic Anticoagulation: N/A - Opiate Usage Evaluate Pain Scale/Pains Meds: Reviewed (epidural plus fentanyl IVP PRN) Scheduled Bowel Reg ordered if on Opiates?: Yes (prn) - Relevant Labs Sodium 139 mmol/L (136-145) 02/01/20 06:55 Potassium 3.5 mmol/L (3.5-5.1) 02/01/20 06:55 Chloride 106 mmol/L (98-107) 02/01/20 06:55 Magnesium 1.4 mg/dL (1.8-2.4) L 02/01/20 06:55 Electrolytes, C-Reactive P, ESR: Reviewed (Mag replaced 2 gm IV) - DM Control DM Control: Glucose 100 mg/dL (74-106) 02/01/20 06:55 Insulin Dosing: Reviewed - Heart Failure/WI EF%, ELEONORA's, B-Blockers, Diuretics: N/A - BP Control BP Control: Blood Pressure 110/93 Blood Pressure 110/93 Blood Pressure 110/93 Blood Pressure 91/65 Blood Pressure 91/65 Blood Pressure 91/65 Blood Pressure 91/58 Blood Pressure 114/64 Blood Pressure 91/57 Blood Pressure 97/54 Blood Pressure 110/65 Blood Pressure 110/65 If elevated: Reviewed - Qtc Review If Elevated: Reviewed (QTc 442) - IV to PO Switch IV Medications: Reviewed - Home Meds Home Med List reviewed: Reviewed Relevent Home Meds Not ordered & why?: atorvastatin, alendronate, vitamin d, aspirin, glucosamine/elizabeth supp, triamcinolone NS, omeprazole (currently has protonix gtt), metoprolol (has IVP prn ordered) -- bp's have been on the lower side - Current meds Current Medication Order Review: Reviewed (Epidural rate at 8 ml/hr, continues, reassess tmmw per ANES)
[2020-02-01] MEDS: MAGNESIUM SULFATE 2 GM/50 ML BAG IVPB (16:08)
[2020-02-01] MEDS: Enoxaparin 40 MG/0.4 ML SYR SC (18:58)
[2020-02-01] MEDS: Furosemide 40 MG/4 ML VIAL IVP (18:58)
[2020-02-02] VITALS (98 sets, daily range): BP systolic 84–185; BP diastolic 45–107; PULSE 52–79; RESP 15–26; TEMP 36–36.4; O2SAT 89–96
[2020-02-02] MEDS: ACETAMINOPHEN 1,000 MG/100 ML BTL 400 MG IVPB ×4 (00:51→17:38)
[2020-02-02] MEDS: Ketorolac 15 MG/ML VIAL IVP ×4 (04:16→21:59)
[2020-02-02] MEDS: PIPERACILLIN/TAZO 3.375 GM in Normal Saline 50 ML IVPB ×4 (04:16→21:58)
[2020-02-02] MEDS: FentaNYL/ROPIvacaine 2 mcg/ml and 0.1% 200 ML CADD Cassette EP ×2 (04:17→19:14)
--- NOTE | 2020-02-02 05:01 | PDOC.CMPRO ---
- If Service Date Differs Date of service: 02/02/20 Time of Service: 05:01 Care Management Progress Note S/O: Jessa remains in the ICU. She continues to have the epidural. Plan for to see her on Thursday at 1000. CM to continue to assess for ongoing discharge needs. A: Jessa is a 64 alanna old female admitted with perforated bowel status post colonoscopy,and now repair including status post, exploratory laparotomy with bowel resection and anstamosis. P: Jessa will be discharged home when medically ready. Anticipate no additional needs. CM will continue to assess for ongoing discharge needs and provide coordination and support.
[2020-02-02 06:49] LABS: Abs Immature Grans 0.01 k/cumm (0.0-0.09); Absolute Basophil Count 0.01 k/cumm (0.0-0.2); Absolute Eosinophil Count 0.23 k/cumm (0.0-0.7); Absolute Lymphocyte Count 1.04 k/cumm (1.2-3.4); Absolute Monocyte Count 0.41 k/cumm (0.11-0.7); Absolute Neutrophil Count 5.99 k/cumm (1.2-6.7); Basophils % 0.1; HCT 35.5 % (36.0-46.0); HGB 11.4 g/dL (12.0-15.5); Immature Grans % 0.1 %; Lymphocytes % 13.5; Mean Corp. HGB Concentration 32.1 g/dL (32.0-36.0); Mean Corpuscular Hemoglobin 28.6 pg (27.0-33.0); Mean Corpuscular Volume 89.2 fL (80-95); Mean Platelet Volume 9.9 fL (8.0-11.0); Monocytes % 5.3; Platelet Count 201 x1000/uL (130-400); RBC 3.98 m/cumm (4.00-5.20); RBC Distribution Width 13.6 % (11.7-14.6); White Blood Cell Count 7.69 k/cumm (4.4-10.8)
[2020-02-02 07:07] LABS: BUN 11 mg/dL (7-18); CREATININE 0.86 mg/dL (0.55-1.02); Calcium 7.5 mg/dL (8.5-10.1); Chloride 106 mmol/L (98-107); Glucose 64 mg/dL (74-106); Magnesium 1.8 mg/dL (1.8-2.4); Potassium 3.2 mmol/L (3.5-5.1); Sodium 142 mmol/L (136-145)
--- NOTE | 2020-02-02 07:48 | W.PM.PROGNOT ---
Date of Service Date of service: 02/02/20 Time of Service: 07:48 Assessment and Plan Assessment and plan (1) Bowel perforation: Status: Acute Assessment and plan: POD#2 -Clear liquid diet. -Post nutritional supplement. -ERAS protocol -Epidural per anesthesia. Maintain Connor until epidural is out -Lovenox for DVT prophylaxis. We will coordinate with anesthesia for epidural removal. -Continue antibiotics -Encourage ambulation and pulmonary toilet -We will start patient on Effexor for depression and anxiety she has been on this medication in the past and has done well (2) PTSD (post-traumatic stress disorder): Status: Acute (3) Depression: Status: Chronic Qualifiers: Depression Type: unspecified Qualified Code(s): F32.9 - Major depressive disorder, single episode, unspecified (4) Anxiety: Status: Chronic (5) GERD (gastroesophageal reflux disease): Status: None Qualifiers: Esophagitis presence: esophagitis presence not specified Qualified Code(s): K21.9 - Gastro-esophageal reflux disease without esophagitis (6) Hypertension: Status: Chronic Qualifiers: Hypertension type: essential hypertension Qualified Code(s): I10 - Essential (primary) hypertension (7) Hypothyroidism: Status: Chronic Qualifiers: Hypothyroidism type: unspecified Qualified Code(s): E03.9 - Hypothyroidism, unspecified Subjective Subjective Interval history since last seen: Pt is doing well. no headaches. No CP or SOB. no productive cough. no dysuria. no leg pain or swelling. mult BM last pm. no blood. very hungry. Tearful and depressed over immediate future- suppose to be moving. No fever chills overnight. Blood pressure has been stable. She had good urine output. Review the last 12-hour progess with nursing Exam HENMT Other: No eye pain redness swelling or discharge. No sinus pain or pressure. No sore throat. No thrush. Chest Chest: normal inspection of the chest Resp Effort & Inspection: normal respiratory effort and able to speak in complete sentences Auscultation: clear to auscultation bilaterally Cardio Rate: regular rate Rhythm: regular rhythm Other: NSR BP has been stable GI Other: She has a wound VAC in place. She does have a drain. This is been minimal serous output only. She has an epidural in place. Please see anesthesia's notes for complete details on the epidural. Is controlling her pain well. She has been able to get up and walk. She is passing gas and had bowel movement. No bleeding. She is hungry. Skin Other: Intact. No breakdown Extrem General: no clubbing, cyanosis or edema Objective Objective Clinical Data: Abnormal lab results 02/01/20 02/02/20 02/02/20 Range/Units 06:55 06:05 06:05 RBC 3.98 L (4.00-5.20) m/cumm Hgb 11.4 L (12.0-15.5) g/dL Hct 35.5 L (36.0-46.0) % Absolute Lymphocytes 1.04 L (1.2-3.4) k/cumm Potassium 3.2 L (3.5-5.1) mmol/L Glucose 64 L (74-106) mg/dL Calcium 7.4 L 7.5 L (8.5-10.1) mg/dL Magnesium 1.4 L (1.8-2.4) mg/dL Vital Signs Temperature 36.4 C L 02/02/20 04:50 Temperature Source Temporal Artery Scan 02/02/20 04:50 Pulse 73 02/02/20 07:00 Pulse 73 02/02/20 07:00 Respiratory Rate 19 02/02/20 07:00 Respiratory Effort 02/02/20 04:50 Respiratory Depth Normal 02/02/20 04:50 Respiratory Pattern Normal 02/02/20 04:50 Blood Pressure 140/53 L 02/02/20 07:00 Blood Pressure Mean 75 02/02/20 07:00 Blood Pressure Position Supine 02/01/20 13:33 Pulse Oximetry 95 02/02/20 07:00 Respiratory End-tidal CO2 30 01/31/20 14:10 Oxygen Delivery Method Nasal Cannula 02/01/20 23:00 Oxygen Flow Rate 3 02/01/20 23:00 Pain Level 4 02/02/20 05:16 Intake & Output 02/01/20 02/01/20 02/02/20 11:59 23:59 11:59 Intake Total 2704.5 / 4500.500 1796.000 / 4500.500 150 / 150 Output Total 595 / 2695 2100 / 2695 845 / 845 Balance 2109.5 / 1805.500 -304.000 / 1805.500 -695 / -695 Weight 59 kg 56.4 kg Intake: IV 2404.5 / 3880.500 1476.000 / 3880.500 150 / 150 Oral 300 / 620 320 / 620 Output: Drainage 95 / 135 40 / 135 20 / 20 Left Abdomen 95 / 135 40 / 135 20 / 20 Urine 500 / 2560 2060 / 2560 825 / 825 Other: Urine Color Yellow Pale Pale Yellow Yellow Urine Appearance Clear Clear Clear Urine Odor None None Comment Connor intact and draining clear light elia urine. Stool Size Smear Stool Characteristics Liquid Voiding Methods Indwelling Catheter Indwelling Catheter Laboratory Results WBC 7.69 k/cumm (4.4-10.8) 02/02/20 06:05 RBC 3.98 m/cumm (4.00-5.20) L 02/02/20 06:05 Hgb 11.4 g/dL (12.0-15.5) L 02/02/20 06:05 Hct 35.5 % (36.0-46.0) L 02/02/20 06:05 MCV 89.2 fL (80-95) 02/02/20 06:05 MCH 28.6 pg (27.0-33.0) 02/02/20 06:05 MCHC 32.1 g/dL (32.0-36.0) 02/02/20 06:05 RDW 13.6 % (11.7-14.6) 02/02/20 06:05 Plt Count 201 x1000/uL (130-400) 02/02/20 06:05 MPV 9.9 fL (8.0-11.0) 02/02/20 06:05 Immature Gran % 0.1 % 02/02/20 06:05 Neutrophils % 78.0 02/02/20 06:05 Lymphocytes % 13.5 02/02/20 06:05 Monocytes % 5.3 02/02/20 06:05 Eosinophils % 3.0 02/02/20 06:05 Basophils % 0.1 02/02/20 06:05 Absolute Neutrophils 5.99 k/cumm (1.2-6.7) 02/02/20 06:05 Absolute Lymphocytes 1.04 k/cumm (1.2-3.4) L 02/02/20 06:05 Absolute Monocytes 0.41 k/cumm (0.11-0.7) 02/02/20 06:05 Absolute Eosinophils 0.23 k/cumm (0.0-0.7) 02/02/20 06:05 Absolute Basophils 0.01 k/cumm (0.0-0.2) 02/02/20 06:05 Sodium 142 mmol/L (136-145) 02/02/20 06:05 Potassium 3.2 mmol/L (3.5-5.1) L 02/02/20 06:05 Chloride 106 mmol/L (98-107) 02/02/20 06:05 Carbon Dioxide 27.0 mmol/L (21.0-32.0) 02/02/20 06:05 Anion Gap 9.0 mmol/L (3-11) 02/02/20 06:05 BUN 11 mg/dL (7-18) 02/02/20 06:05 Creatinine 0.86 mg/dL (0.55-1.02) 02/02/20 06:05 Estimated GFR/1.73 m2 >= 60.00 (mL/min/1.73m2) 02/02/20 06:05 Glucose 64 mg/dL (74-106) L 02/02/20 06:05 Calcium 7.5 mg/dL (8.5-10.1) L 02/02/20 06:05 Magnesium 1.8 mg/dL (1.8-2.4) 02/02/20 06:05 Total Bilirubin 1.8 mg/dL (0.2-1.0) H 01/31/20 07:02 AST 26 U/L (15-37) 01/31/20 07:02 ALT 27 U/L (14-59) 01/31/20 07:02 Alkaline Phosphatase 65 U/L (46-116) 01/31/20 07:02 Total Protein 7.2 g/dL (6.4-8.2) 01/31/20 07:02 Albumin 3.8 g/dL (3.4-5.0) 01/31/20 07:02 Lipase 91 U/L (73-393) 01/31/20 07:02 Urine Color Yellow (Yellow) 01/31/20 07:10 Urine Clarity Clear (Clear) 01/31/20 07:10 Urine pH 5.5 (5-8) 01/31/20 07:10 Ur Specific [place] 1.025 (1.005-1.025) 01/31/20 07:10 Urine Protein Trace mg/dL (Negative) H 01/31/20 07:10 Urine Ketones Trace mg/dL (Negative) H 01/31/20 07:10 Urine Blood Moderate (Negative) H 01/31/20 07:10 Urine Nitrite Negative (Negative) 01/31/20 07:10 Urine Bilirubin Small (Negative) H 01/31/20 07:10 Urine Urobilinogen 0.2 EU/dL (Up TO 0.2) 01/31/20 07:10 Ur Leukocyte Esterase Negative (Negative) 01/31/20 07:10 Urine RBC 5-10 HPF (0-2) H 01/31/20 07:10 Urine WBC 5-10 HPF (0-5) 01/31/20 07:10 Ur Epithelial Cells Many HPF (Negative) 01/31/20 07:10 Urine Crystals Negative HPF (Negative) 01/31/20 07:10 Urine Bacteria Many HPF (Negative) 01/31/20 07:10 Urine Casts Negative LPF (Negative) 01/31/20 07:10 Urine Mucus Negative (Negative) 01/31/20 07:10 Urine Other Rare yeast (Negative) 01/31/20 07:10 Ur Culture Indicated? No/sq. contamination 01/31/20 07:10 Urine Glucose Negative mg/dL (Negative) 01/31/20 07:10 COVID-19 PCR Negative (Negative) 01/31/20 08:15 Nasopharyn COVID-19 PCR Not Applicable 01/31/20 08:15 Ref Test Perform Site [facility] lab 01/31/20 08:15 Patient ABO/Rh B Negative 01/31/20 07:40 Antibody Screen Negative 01/31/20 07:40
[2020-02-02] MEDS: Levothyroxine 50 MCG TAB PO (08:19)
[2020-02-02] MEDS: Venlafaxine 37.5 MG CAPCR PO (08:19)
[2020-02-02] MEDS: POTASSIUM CHLORIDE 10 MEQ/100 ML BAG 100 MEQ IVPB (08:25)
[2020-02-02] MEDS: HYDROcodone 5/Acetaminophen 325 TAB PO (08:39)
--- NOTE | 2020-02-02 09:10 | PDOC.ANES ---
Date of service: 02/02/20 Time of Service: 09:10 Anesthesia Note Report Anesthesia Note: Asked to see Jessa to assess epidural and analgesia. She is conversive and states incisional abdominal pain is 5-7/10 today. Catheter dressing intact, depth at skin is 15cm. Noted some blood at site but this is reportedly from insertion day. No motor weakness. Gave 5ml clinician bolus from pump and re-educated patient on PCEA button administration which she has been hesitant to use. I increased PCEA bolus to 5ml from 3ml and basal rate from 8ml/he to 10ml/hr. Nursing will continue to educate and reach out to anesthesia with ant concerns.
[2020-02-02] MEDS: PANTOPRAZOLE 80 MG in Normal Saline 100 ML 10 MG IV ×2 (10:22→20:30)
[2020-02-02] MEDS: Normal Saline Flush 10 ML SYR IVP ×2 (10:22→18:24)
[2020-02-02] MEDS: Lactated Ringers 1,000 ML 80 ML IV (11:46)
--- NOTE | 2020-02-02 11:56 | W.NUTRFU ---
Date of service: 02/02/20 Time of Service: 11:56 Nutritional Follow up NOTE: Pt s/p bowel performation. PMH: HTN, GERD. Met with Jessa today, she is following clear liquid diet with adequate intake, asking for a turkey sandwich. Advance diet as tolerated. Not at risk for nutritional decline at this time. Time Spent in Nutritional Counseling and Treatment: 5 min spent face to face
--- NOTE | 2020-02-02 14:47 | PT.INTREAT ---
Date of service: 02/02/20 Time of Service: 14:47 PT Notes Visit Reasons: BOWEL PERFORATION Inpatient Physical Therapy Treatment Note [facility] Date: 02/02/2020 SUBJECTIVE:Jessa reports that she is exhausted. She has yet to have good sleep. Indicates that she would like to work with PT but needs to try to get some rest first. OBJECTIVE: [] BED MOBILITY/TRANSFERS Rolling L/R: I Supine-sit: S Sit-supine: S Sit-stand: S Stand-sit: S Bed-Chair: CGA, without the use an AD. GAIT Assistive Device: FWW Weight bearing: full Assist: CGA Distance: 5' in am, 350' in pm THEREX: LE strengthening routine, see flowsheet for details. ASSESSMENT: She is independent with functional mobility. Demonstrates good strength. Needs to work on endurance. PLAN: continue to progress to her tolerance following PT POC. TREATMENT CODE/TIME: 15 min in am, 30 min in pm. [id number], [id number].
[2020-02-02] MEDS: Enoxaparin 40 MG/0.4 ML SYR SC (17:42)
[2020-02-02] MEDS: Ondansetron 4 MG/2 ML VIAL IVP (18:23)
[2020-02-02] MEDS: LORazepam 2 MG/ML VIAL 0.5 MG IVP (21:59)
[2020-02-02] MEDS: Metoprolol 5 MG/5 ML VIAL 2.5 MG IVP (22:16)
[2020-02-03] MEDS: ACETAMINOPHEN 1,000 MG/100 ML BTL 400 MG IVPB ×2 (00:38→06:52)
[2020-02-03] MEDS: Ketorolac 15 MG/ML VIAL IVP ×4 (04:07→22:23)
[2020-02-03] MEDS: Lactated Ringers 1,000 ML 80 ML IV (04:08)
[2020-02-03] MEDS: PIPERACILLIN/TAZO 3.375 GM in Normal Saline 50 ML IVPB ×4 (04:08→22:22)
[2020-02-03] MEDS: Normal Saline Flush 10 ML SYR IVP ×5 (04:09→22:22)
[2020-02-03 04:25] VITALS: BP 161/84; PULSE 69; RESP 18; TEMP 36.6; O2SAT 91
[2020-02-03] MEDS: Levothyroxine 50 MCG TAB PO (06:51)
[2020-02-03 07:23] LABS: Abs Immature Grans 0.02 k/cumm (0.0-0.09); Absolute Basophil Count 0.01 k/cumm (0.0-0.2); Absolute Eosinophil Count 0.29 k/cumm (0.0-0.7); Absolute Lymphocyte Count 1.03 k/cumm (1.2-3.4); Absolute Monocyte Count 0.37 k/cumm (0.11-0.7); Absolute Neutrophil Count 4.93 k/cumm (1.2-6.7); Basophils % 0.2; Eosinophils % 4.4; HCT 35.9 % (36.0-46.0); HGB 11.6 g/dL (12.0-15.5); Immature Grans % 0.3 %; Lymphocytes % 15.5; Mean Corp. HGB Concentration 32.3 g/dL (32.0-36.0); Mean Corpuscular Hemoglobin 28.5 pg (27.0-33.0); Mean Corpuscular Volume 88.2 fL (80-95); Mean Platelet Volume 9.5 fL (8.0-11.0); Monocytes % 5.6; Platelet Count 260 x1000/uL (130-400); RBC 4.07 m/cumm (4.00-5.20); RBC Distribution Width 13.3 % (11.7-14.6); White Blood Cell Count 6.65 k/cumm (4.4-10.8)
--- NOTE | 2020-02-03 07:27 | W.PM.PROGNOT ---
Date of Service Date of service: 02/03/20 Time of Service: 07:00 Assessment and Plan Assessment and plan (1) Bowel perforation: Status: Acute Assessment and plan: POD#3 -Advance diet to regular soft -Post nutritional supplement. -ERAS protocol -Lovenox for DVT prophylaxis. We will coordinate with anesthesia for epidural removal. -Continue antibiotics -Encourage ambulation and pulmonary toilet -We will start patient on Effexor for depression and anxiety she has been on this medication in the past and has done well Epidural was leaking later in the day so it was removed by anesthesia. Patient has norco and Morphine ordered as well as tylenol (2) PTSD (post-traumatic stress disorder): Status: Acute (3) Depression: Status: Chronic Qualifiers: Depression Type: unspecified Qualified Code(s): F32.9 - Major depressive disorder, single episode, unspecified (4) Anxiety: Status: Chronic (5) GERD (gastroesophageal reflux disease): Status: None Qualifiers: Esophagitis presence: esophagitis presence not specified Qualified Code(s): K21.9 - Gastro-esophageal reflux disease without esophagitis (6) Hypertension: Status: Chronic Assessment and plan: BP going up. Will restart her metoprolol Qualifiers: Hypertension type: essential hypertension Qualified Code(s): I10 - Essential (primary) hypertension (7) Hypothyroidism: Status: Chronic Qualifiers: Hypothyroidism type: unspecified Qualified Code(s): E03.9 - Hypothyroidism, unspecified Subjective Subjective Interval history since last seen: Jessa is doing well today. She a little bit of nausea yesterday and a bit of increase in pain but that has resolved. She is hungry and asking for something other then clear liquids. She continues to pass gas and she had several BM's. NO fevers overnight Exam Resp Effort & Inspection: normal respiratory effort Auscultation: clear to auscultation bilaterally Cardio Rate: regular rate Rhythm: regular rhythm GI Inspection: normal to inspection and incision (c/d/i) Palpation: soft, no hepatosplenomegaly and tender (mild tenderness along her incision) Auscultation: normal bowel sounds Other: LILLY with serosanguinous discharge Objective Objective Clinical Data: Abnormal lab results 02/03/20 Range/Units 06:15 Hgb 11.6 L (12.0-15.5) g/dL Hct 35.9 L (36.0-46.0) % Absolute Lymphocytes 1.03 L (1.2-3.4) k/cumm Vital Signs Temperature 97.9 F 02/03/20 04:25 Temperature Source Tympanic 02/03/20 04:25 Pulse 69 02/03/20 04:25 Pulse Rhythm Regular 02/02/20 23:00 Pulse 56 L 02/02/20 22:40 Respiratory Rate 18 02/03/20 04:25 Respiratory Effort Non-Labored 02/02/20 23:00 Respiratory Depth Normal 02/02/20 23:00 Respiratory Pattern Normal 02/02/20 23:00 Blood Pressure 161/84 H 02/03/20 04:25 Blood Pressure Mean 109 02/02/20 22:36 Blood Pressure Position Supine 02/01/20 13:33 Pulse Oximetry 91 L 02/03/20 04:25 Respiratory End-tidal CO2 30 01/31/20 14:10 Oxygen Delivery Method Nasal Cannula 02/03/20 04:25 Oxygen Flow Rate 1 02/03/20 04:25 Pain Level 1 02/03/20 04:07 Intake & Output 02/02/20 02/02/20 02/03/20 11:59 23:59 11:59 Intake Total 2070 / 2570 500 / 2570 1100 / 1100 Output Total 885 / 1435 550 / 1435 30 / 30 Balance 1185 / 1135 -50 / 1135 1070 / 1070 Weight 124 lb 5.451 oz Intake: IV 1550 / 1950 400 / 1950 1100 / 1100 Oral 520 / 620 100 / 620 Injectate 0 / 0 Left Abdomen 0 / 0 Output: Drainage 60 / 120 60 / 120 30 / 30 Left Abdomen 60 / 120 60 / 120 30 / 30 Urine 825 / 1275 450 / 1275 Stool 40 / 40 Other: Urine Color Pale Straw Yellow Urine Appearance Clear Clear Urine Odor None None Stool Characteristics Liquid Brown Voiding Methods Indwelling Catheter Indwelling Catheter Laboratory Results WBC 6.65 k/cumm (4.4-10.8) 02/03/20 06:15 RBC 4.07 m/cumm (4.00-5.20) 02/03/20 06:15 Hgb 11.6 g/dL (12.0-15.5) L 02/03/20 06:15 Hct 35.9 % (36.0-46.0) L 02/03/20 06:15 MCV 88.2 fL (80-95) 02/03/20 06:15 MCH 28.5 pg (27.0-33.0) 02/03/20 06:15 MCHC 32.3 g/dL (32.0-36.0) 02/03/20 06:15 RDW 13.3 % (11.7-14.6) 02/03/20 06:15 Plt Count 260 x1000/uL (130-400) 02/03/20 06:15 MPV 9.5 fL (8.0-11.0) 02/03/20 06:15 Immature Gran % 0.3 % 02/03/20 06:15 Neutrophils % 74.0 02/03/20 06:15 Lymphocytes % 15.5 02/03/20 06:15 Monocytes % 5.6 02/03/20 06:15 Eosinophils % 4.4 02/03/20 06:15 Basophils % 0.2 02/03/20 06:15 Absolute Neutrophils 4.93 k/cumm (1.2-6.7) 02/03/20 06:15 Absolute Lymphocytes 1.03 k/cumm (1.2-3.4) L 02/03/20 06:15 Absolute Monocytes 0.37 k/cumm (0.11-0.7) 02/03/20 06:15 Absolute Eosinophils 0.29 k/cumm (0.0-0.7) 02/03/20 06:15 Absolute Basophils 0.01 k/cumm (0.0-0.2) 02/03/20 06:15 Sodium 142 mmol/L (136-145) 02/02/20 06:05 Potassium 3.2 mmol/L (3.5-5.1) L 02/02/20 06:05 Chloride 106 mmol/L (98-107) 02/02/20 06:05 Carbon Dioxide 27.0 mmol/L (21.0-32.0) 02/02/20 06:05 Anion Gap 9.0 mmol/L (3-11) 02/02/20 06:05 BUN 11 mg/dL (7-18) 02/02/20 06:05 Creatinine 0.86 mg/dL (0.55-1.02) 02/02/20 06:05 Estimated GFR/1.73 m2 >= 60.00 (mL/min/1.73m2) 02/02/20 06:05 Glucose 64 mg/dL (74-106) L 02/02/20 06:05 Calcium 7.5 mg/dL (8.5-10.1) L 02/02/20 06:05 Magnesium 1.8 mg/dL (1.8-2.4) 02/02/20 06:05 Total Bilirubin 1.8 mg/dL (0.2-1.0) H 01/31/20 07:02 AST 26 U/L (15-37) 01/31/20 07:02 ALT 27 U/L (14-59) 01/31/20 07:02 Alkaline Phosphatase 65 U/L (46-116) 01/31/20 07:02 Total Protein 7.2 g/dL (6.4-8.2) 01/31/20 07:02 Albumin 3.8 g/dL (3.4-5.0) 01/31/20 07:02 Lipase 91 U/L (73-393) 01/31/20 07:02 Urine Color Yellow (Yellow) 01/31/20 07:10 Urine Clarity Clear (Clear) 01/31/20 07:10 Urine pH 5.5 (5-8) 01/31/20 07:10 Ur Specific [place] 1.025 (1.005-1.025) 01/31/20 07:10 Urine Protein Trace mg/dL (Negative) H 01/31/20 07:10 Urine Ketones Trace mg/dL (Negative) H 01/31/20 07:10 Urine Blood Moderate (Negative) H 01/31/20 07:10 Urine Nitrite Negative (Negative) 01/31/20 07:10 Urine Bilirubin Small (Negative) H 01/31/20 07:10 Urine Urobilinogen 0.2 EU/dL (Up TO 0.2) 01/31/20 07:10 Ur Leukocyte Esterase Negative (Negative) 01/31/20 07:10 Urine RBC 5-10 HPF (0-2) H 01/31/20 07:10 Urine WBC 5-10 HPF (0-5) 01/31/20 07:10 Ur Epithelial Cells Many HPF (Negative) 01/31/20 07:10 Urine Crystals Negative HPF (Negative) 01/31/20 07:10 Urine Bacteria Many HPF (Negative) 01/31/20 07:10 Urine Casts Negative LPF (Negative) 01/31/20 07:10 Urine Mucus Negative (Negative) 01/31/20 07:10 Urine Other Rare yeast (Negative) 01/31/20 07:10 Ur Culture Indicated? No/sq. contamination 01/31/20 07:10 Urine Glucose Negative mg/dL (Negative) 01/31/20 07:10 COVID-19 PCR Negative (Negative) 01/31/20 08:15 Nasopharyn COVID-19 PCR Not Applicable 01/31/20 08:15 Ref Test Perform Site [facility] 01/31/20 08:15 Patient ABO/Rh B Negative 01/31/20 07:40 Antibody Screen Negative 01/31/20 07:40
[2020-02-03 07:43] LABS: BUN 9 mg/dL (7-18); CREATININE 0.76 mg/dL (0.55-1.02); Calcium 7.7 mg/dL (8.5-10.1); Chloride 105 mmol/L (98-107); Glucose 59 mg/dL (74-106); Magnesium 1.6 mg/dL (1.8-2.4); Potassium 3.2 mmol/L (3.5-5.1); Sodium 142 mmol/L (136-145)
[2020-02-03] MEDS: Metoprolol 12.5 MG TAB PO ×2 (08:22→19:55)
[2020-02-03] MEDS: Venlafaxine 37.5 MG CAPCR PO (08:22)
[2020-02-03] MEDS: Atorvastatin 10 MG TAB 20 MG PO (08:23)
--- NOTE | 2020-02-03 09:17 | PDOC.ANES ---
Date of service: 02/03/20 Time of Service: 09:06 Anesthesia Note Daily Epidural Management VSS, pain level 6/10, patient states she thinks she rates the pain high due to her being depressed. Tolerating her advanced diet well. Passing flatus. Plans to ambulate after a quick morning nap. Per discussion with Dr. Chavez, plan to wean patient off of the epidural with possible discontinuation tomorrow. Decreased infusion to 5 ml/hr and PCEA dose decreased to 3 ml every 15 min. Patient agreeable with plan.
[2020-02-03 09:27] VITALS: BP 160/73; PULSE 71; RESP 18; TEMP 36.6; O2SAT 90
--- NOTE | 2020-02-03 12:47 | PDOC.ANES ---
Date of service: 02/03/20 Time of Service: 12:31 Anesthesia Note Report from nursing staff of epidural leaking. Drainage noted around catheter although catheter intact. Assessment of patient: she is moving well (transferred patient from chair to bed with stand by assist only) and reports pain of 2/10. VSS. Decision made, with patient input, to discontinue the epidural. Catheter removed easily with tip intact. Updated Dr. Chavez re: epidural removal and need for availability of prn pain meds. Normal dose of Lovenox may be given at 1800 today.
[2020-02-03 13:06] VITALS: BP 132/82; PULSE 61; RESP 19; TEMP 36.5; O2SAT 90
[2020-02-03] MEDS: HYDROcodone 5/Acetaminophen 325 TAB PO ×3 (14:20→22:23)
[2020-02-03] MEDS: Acetaminophen 325 MG TAB 650 MG PO ×2 (14:21→18:41)
[2020-02-03] MEDS: Furosemide 20 MG/2 ML VIAL IVP (14:39)
[2020-02-03] MEDS: LORazepam 2 MG/ML VIAL 0.5 MG IVP (14:40)
[2020-02-03 16:05] VITALS: BP 199/79; PULSE 56; RESP 18; TEMP 36.1; O2SAT 91
[2020-02-03] MEDS: Enoxaparin 40 MG/0.4 ML SYR SC (18:41)
[2020-02-03] MEDS: Docusate Sodium 100 MG CAP PO (19:56)
[2020-02-03] MEDS: Potassium Chloride Liquid 20 MEQ PKT 40 MEQ PO (19:56)
--- NOTE | 2020-02-03 20:02 | PDOC.CMPRO ---
- If Service Date Differs Date of service: 02/03/20 Time of Service: 20:03 Care Management Progress Note S/O: Jessa is not feeling well this morning when CM met with her. She states she is feeling exhausted, and at this point she would not care if she ever woke up. Jessa has a consult with if she is still inpatient she will meet with her Thursday morning at 1000 via telehealth. She agrees she would benefit from meeting with the psychiatrist and maybe start treatment. She has a history of traumatic events over the past two years. Jessa describes history of trauma and depression and today due to feeling puffy, weak and just tired she feels it is adding to her symptoms. She states at this point she wants the epidural discontinued, she denies pain and states if the epidural was out she would at least feel something. Her weight is up from admission about 12 pounds. CM reviewed the plan with the primary nurse, she reported to the provider, IV fluids and epidural were discontinued. Jessa is please to state she finished her breakfast without pain and tolerated well. CM reviewed the plan with provider and Jessa may be discharged over the weekend. CM will follow up with her after discharge to assist in coordination of mental health services if she is unable to meet with . A: Jessa is a 64 alanna old female admitted with perforated bowel status post colonoscopy,and now repair including status post, exploratory laparotomy with bowel resection and anstamosis. P: Jessa will be discharged home when medically ready. Anticipate no additional services with the exception of referral to therapist and provider to treat her symptoms of depression. CM will continue to assess for ongoing discharge needs and provide coordination and support.
[2020-02-03 20:36] VITALS: BP 184/86; PULSE 63; RESP 19; TEMP 36; O2SAT 94
[2020-02-03 23:45] VITALS: BP 190/78; PULSE 58; RESP 17; TEMP 35.8; O2SAT 93
[2020-02-04 00:41] VITALS: BP 186/83; PULSE 58
[2020-02-04] MEDS: Metoprolol 5 MG/5 ML VIAL IVP (00:41)
[2020-02-04 03:21] VITALS: BP 172/77; PULSE 57; RESP 19; TEMP 36.2; O2SAT 95
[2020-02-04] MEDS: PIPERACILLIN/TAZO 3.375 GM in Normal Saline 50 ML IVPB (04:45)
[2020-02-04] MEDS: Ketorolac 15 MG/ML VIAL IVP (04:46)
[2020-02-04] MEDS: Levothyroxine 50 MCG TAB PO (05:23)
[2020-02-04] MEDS: LORazepam 2 MG/ML VIAL 0.5 MG IVP ×3 (05:24→16:54)
[2020-02-04 07:09] LABS: HCT 37.6 % (36.0-46.0); HGB 12.9 g/dL (12.0-15.5); Mean Corp. HGB Concentration 34.3 g/dL (32.0-36.0); Mean Corpuscular Hemoglobin 29.5 pg (27.0-33.0); Mean Corpuscular Volume 85.8 fL (80-95); Mean Platelet Volume 9.2 fL (8.0-11.0); Platelet Count 285 x1000/uL (130-400); RBC 4.38 m/cumm (4.00-5.20); White Blood Cell Count 8.43 k/cumm (4.4-10.8)
[2020-02-04] MEDS: Potassium Chloride Liquid 20 MEQ PKT 40 MEQ PO (08:03)
[2020-02-04 08:04] VITALS: BP 196/88; PULSE 76; RESP 17; TEMP 36.8; O2SAT 93
[2020-02-04] MEDS: Acetaminophen 325 MG TAB 650 MG PO ×2 (08:04→16:53)
[2020-02-04] MEDS: Metoprolol 12.5 MG TAB PO (08:04)
[2020-02-04] MEDS: Docusate Sodium 100 MG CAP PO ×2 (08:04→13:44)
[2020-02-04] MEDS: Venlafaxine 37.5 MG CAPCR PO (08:05)
[2020-02-04] MEDS: Omeprazole 20 MG CAPCR 40 MG PO (08:05)
[2020-02-04] MEDS: HYDROcodone 5/Acetaminophen 325 TAB PO (08:05)
[2020-02-04] MEDS: Atorvastatin 10 MG TAB 20 MG PO (08:05)
--- NOTE | 2020-02-04 08:09 | PT.INTREAT ---
Date of service: 02/03/20 Time of Service: 14:00 PT Notes Visit Reasons: BOWEL PERFORATION Inpatient Physical Therapy Treatment Note [facility] Date:02/03/2020 SUBJECTIVE: Jessa states that she may go home tomorrow. She feels ready.I just want to get back to my normal. OBJECTIVE: [] PAIN: abdominal pain BED MOBILITY/TRANSFERS Supine-sit: S Sit-supine:S Sit-stand: S Stand-sit: S Bed-Chair: S GAIT Assistive Device:pushed IV pole in am and FWW in pm. Weight bearing:FWB Assist: SBA Distance: 300' in both am and pm sessions. ASSESSMENT:safe independent transfers. Assistance required mostly with her drains and IV poles. No LOB noted. Slight fatigue at end of session as well as abdominal pain. PLAN: continue PT POC. TREATMENT CODE/TIME:20 min in am and 15 min in pm. [id number] [id number].
[2020-02-04 08:50] VITALS: PULSE 64
[2020-02-04] MEDS: MORPHine 2 MG/ML SYR IVP (08:54)
[2020-02-04] MEDS: Normal Saline Flush 10 ML SYR IVP (08:55)
--- NOTE | 2020-02-04 08:58 | W.PM.PROGNOT ---
Date of Service Date of service: 02/04/20 Time of Service: 08:58 Assessment and Plan Assessment and plan (1) Hypothyroidism: Status: Chronic Qualifiers: Hypothyroidism type: unspecified Qualified Code(s): E03.9 - Hypothyroidism, unspecified (2) Hypertension: Status: Chronic Assessment and plan: A\\ Still running high. Metoprolol just started again yesterday Multifactorial. Pain related P\\ Continue with Metoprolol and get better control of her pain Qualifiers: Hypertension type: essential hypertension Qualified Code(s): I10 - Essential (primary) hypertension (3) GERD (gastroesophageal reflux disease): Status: None Qualifiers: Esophagitis presence: esophagitis presence not specified Qualified Code(s): K21.9 - Gastro-esophageal reflux disease without esophagitis (4) PTSD (post-traumatic stress disorder): Status: Acute (5) Depression: Status: Chronic Assessment and plan: Started on Effexor Qualifiers: Depression Type: unspecified Qualified Code(s): F32.9 - Major depressive disorder, single episode, unspecified (6) Anxiety: Status: Chronic (7) Bowel perforation: Status: Acute Assessment and plan: A\\ POD#4 s/p ex-lap and bowel resection with anastamosis. Overall doing well. Pain njot well controlled P\\ Remove LILLY today. Remove wound vac Start Oxycodon for pain If pain better conbtrolled will D/C home Subjective Subjective Interval history since last seen: Jessa is tearful this morning. She just wants to feel better. Pain doesn't seem to be well controlled on Hydrocodon. Passing flatus. LILLY with serosanguinous discharge. No fevers. No leukocytosis. Exam Const General: cooperative, comfortable and anxious Orientation: alert and oriented x3 HENMT Head: normocephalic and atraumatic Resp Effort & Inspection: normal respiratory effort Auscultation: clear to auscultation bilaterally Cardio Rate: regular rate Rhythm: regular rhythm GI Palpation: soft, no hepatosplenomegaly and tender (appropriatly tender around LILLY and midline incision. No guarding or rebound.) Auscultation: normal bowel sounds Objective Objective Clinical Data: Vital Signs Temperature 98.2 F 02/04/20 08:04 Temperature Source Tympanic 02/04/20 08:04 Pulse 76 02/04/20 08:04 Pulse Rhythm Regular 02/03/20 20:00 Pulse 56 L 02/02/20 22:40 Respiratory Rate 17 02/04/20 08:04 Respiratory Effort Non-Labored 02/03/20 20:00 Respiratory Depth Normal 02/03/20 20:00 Respiratory Pattern Normal 02/03/20 20:00 Blood Pressure 196/88 H 02/04/20 08:04 Blood Pressure Mean 109 02/02/20 22:36 Blood Pressure Position Supine 02/01/20 13:33 Pulse Oximetry 93 L 02/04/20 08:04 Respiratory End-tidal CO2 30 01/31/20 14:10 Oxygen Delivery Method Nasal Cannula 02/04/20 08:04 Oxygen Flow Rate 1 02/04/20 08:04 Pain Level 5 02/04/20 08:54 Comment 02/03/20 23:45 Intake & Output 02/03/20 02/03/20 02/04/20 11:59 23:59 11:59 Intake Total 2057.333 / 2637.333 580 / 2637.333 Output Total 30 / 3245 3215 / 3245 1240 / 1240 Balance 2027.333 / -607.667 -2635 / -607.667 -1240 / -1240 Weight 131 lb 2.801 oz 127 lb 3.307 oz Intake: IV 1817.333 / 1917.333 100 / 1917.333 Oral 240 / 720 480 / 720 Injectate 0 / 0 Left Abdomen 0 / 0 Output: Drainage 30 / 95 65 / 95 40 / 40 Left Abdomen 30 / 95 65 / 95 40 / 40 Urine 3150 / 3150 1200 / 1200 Other: Urine Color Pale Yellow Yellow Urine Appearance Clear Clear Clear Urine Odor None Comment pt requested catheter to remain overnight Stool Size Moderate Stool Characteristics Liquid Voiding Methods Bedside Commode Laboratory Results WBC 8.43 k/cumm (4.4-10.8) 02/04/20 06:20 RBC 4.38 m/cumm (4.00-5.20) 02/04/20 06:20 Hgb 12.9 g/dL (12.0-15.5) 02/04/20 06:20 Hct 37.6 % (36.0-46.0) 02/04/20 06:20 MCV 85.8 fL (80-95) 02/04/20 06:20 MCH 29.5 pg (27.0-33.0) 02/04/20 06:20 MCHC 34.3 g/dL (32.0-36.0) 02/04/20 06:20 RDW 13.0 % (11.7-14.6) 02/04/20 06:20 Plt Count 285 x1000/uL (130-400) 02/04/20 06:20 MPV 9.2 fL (8.0-11.0) 02/04/20 06:20 Immature Gran % 0.3 % 02/03/20 06:15 Neutrophils % 74.0 02/03/20 06:15 Lymphocytes % 15.5 02/03/20 06:15 Monocytes % 5.6 02/03/20 06:15 Eosinophils % 4.4 02/03/20 06:15 Basophils % 0.2 02/03/20 06:15 Absolute Neutrophils 4.93 k/cumm (1.2-6.7) 02/03/20 06:15 Absolute Lymphocytes 1.03 k/cumm (1.2-3.4) L 02/03/20 06:15 Absolute Monocytes 0.37 k/cumm (0.11-0.7) 02/03/20 06:15 Absolute Eosinophils 0.29 k/cumm (0.0-0.7) 02/03/20 06:15 Absolute Basophils 0.01 k/cumm (0.0-0.2) 02/03/20 06:15 Sodium 142 mmol/L (136-145) 02/03/20 06:15 Potassium 3.2 mmol/L (3.5-5.1) L 02/03/20 06:15 Chloride 105 mmol/L (98-107) 02/03/20 06:15 Carbon Dioxide 25.0 mmol/L (21.0-32.0) 02/03/20 06:15 Anion Gap 12.0 mmol/L (3-11) H 02/03/20 06:15 BUN 9 mg/dL (7-18) 02/03/20 06:15 Creatinine 0.76 mg/dL (0.55-1.02) 02/03/20 06:15 Estimated GFR/1.73 m2 >= 60.00 (mL/min/1.73m2) 02/03/20 06:15 Glucose 59 mg/dL (74-106) L 02/03/20 06:15 Calcium 7.7 mg/dL (8.5-10.1) L 02/03/20 06:15 Magnesium 1.6 mg/dL (1.8-2.4) L 02/03/20 06:15 Total Bilirubin 1.8 mg/dL (0.2-1.0) H 01/31/20 07:02 AST 26 U/L (15-37) 01/31/20 07:02 ALT 27 U/L (14-59) 01/31/20 07:02 Alkaline Phosphatase 65 U/L (46-116) 01/31/20 07:02 Total Protein 7.2 g/dL (6.4-8.2) 01/31/20 07:02 Albumin 3.8 g/dL (3.4-5.0) 01/31/20 07:02 Lipase 91 U/L (73-393) 01/31/20 07:02 Urine Color Yellow (Yellow) 01/31/20 07:10 Urine Clarity Clear (Clear) 01/31/20 07:10 Urine pH 5.5 (5-8) 01/31/20 07:10 Ur Specific [place] 1.025 (1.005-1.025) 01/31/20 07:10 Urine Protein Trace mg/dL (Negative) H 01/31/20 07:10 Urine Ketones Trace mg/dL (Negative) H 01/31/20 07:10 Urine Blood Moderate (Negative) H 01/31/20 07:10 Urine Nitrite Negative (Negative) 01/31/20 07:10 Urine Bilirubin Small (Negative) H 01/31/20 07:10 Urine Urobilinogen 0.2 EU/dL (Up TO 0.2) 01/31/20 07:10 Ur Leukocyte Esterase Negative (Negative) 01/31/20 07:10 Urine RBC 5-10 HPF (0-2) H 01/31/20 07:10 Urine WBC 5-10 HPF (0-5) 01/31/20 07:10 Ur Epithelial Cells Many HPF (Negative) 01/31/20 07:10 Urine Crystals Negative HPF (Negative) 01/31/20 07:10 Urine Bacteria Many HPF (Negative) 01/31/20 07:10 Urine Casts Negative LPF (Negative) 01/31/20 07:10 Urine Mucus Negative (Negative) 01/31/20 07:10 Urine Other Rare yeast (Negative) 01/31/20 07:10 Ur Culture Indicated? No/sq. contamination 01/31/20 07:10 Urine Glucose Negative mg/dL (Negative) 01/31/20 07:10 COVID-19 PCR Negative (Negative) 01/31/20 08:15 Nasopharyn COVID-19 PCR Not Applicable 01/31/20 08:15 Ref Test Perform Site [facility] lab 01/31/20 08:15 Patient ABO/Rh B Negative 01/31/20 07:40 Antibody Screen Negative 01/31/20 07:40
--- NOTE | 2020-02-04 11:04 | W.PM.DS.N ---
Date of service: 02/04/20 Time of Service: 11:04 DS: Diagnosis Discharge Diagnosis (1) Hypothyroidism: Status: Chronic (2) Hypertension: Status: Chronic (3) GERD (gastroesophageal reflux disease): Status: None (4) PTSD (post-traumatic stress disorder): Status: Acute (5) Depression: Status: Chronic (6) Anxiety: Status: Chronic (7) Bowel perforation: Status: Acute Discharge Plan Disposition Patient Disposition: HOME Condition: Improving Discharge Details Chief Complaint: Abd Prob Clinical Impression: Abdominal pain, Bowel perforation, Intra-abdominal free air of unknown etiology Reason For Visit: BOWEL PERFORATION Admit Date/Time: 01/31/20 08:53 Admit Provider: Gloria Chavez Attending Provider: Gloria Chavez Primary Care Provider: Judith Osorio V ED Provider: Mack Ruvalcaba Hospital Course Hospital Course: Mrs. Madrigal was admitted on Thursday after undergoing surgery for a bowel perforation. She is doing well today. She was started on clear liquids the night of surgery and advanced to a regular soft diet on POD #3. She had an epidural in for 2 days and then it had to be removed due to a leak. She was started on [place] on POD #3. Her pain was not well controlled on Nu [place] so she was switched to Oxycodon today. She did have nausea this morning after taking po potassium on an empty stomach. The nausea has subsided and she is eating. She continues to pass gas. She had a BM yesterday. No BM yet today. She is up and walking. Will D/C Home on Oxycodon Patient struggling with depression. She was started on effexor. Will continue that as an outpatient and try to coordinate an appointment with a counselor. Home Meds and New Rx's Prescriptions: New acetaminophen [Tylenol] 325 mg Tablet 650 mg PO Q6H PRN PRNQty: 30 RF: 0 docusate sodium [Colace] 100 mg Capsule 100 mg PO BID PRN (Reason: constipation) Qty: 60 RF: 0 venlafaxine [Effexor XR] 37.5 mg Capsule,Extended Release 24hr 37.5 mg PO DAILY Qty: 30 RF: 0 ibuprofen [IBU] 600 mg Tablet 600 mg PO Q6H PRN (Reason: Abdominal Pain) Qty: 30 RF: 0 oxycodone 5 mg Tablet 5 mg PO Q6H PRN PRNQty: 14 RF: 0 Continued nitroglycerin [Nitrostat] 0.4 mg tablet, sublingual 0.4 mg SL Q5M PRNRF: 0 hydrocortisone acetate [Anusol-HC] 25 mg suppository 25 mg KS DAILY RF: 0 omeprazole 40 mg capsule,delayed release(DR/EC) 40 mg PO DAILY RF: 0 levothyroxine [Synthroid] 50 mcg tablet 50 mcg PO DAILY RF: 0 triamcinolone acetonide [Nasacort] 55 mcg aerosol,spray 1 spray BRYCE DAILY RF: 0 cholecalciferol (vitamin D3) 50 mcg (2,000 unit) capsule 50 mcg PO DAILY RF: 0 glucosamine-chondroitin [Osteo Bi-Flex] 250-200 mg Tablet 1 tab PO DAILY RF: 0 ondansetron 4 mg tablet,disintegrating 4 mg PO Q6H PRN (Reason: nausea and vomiting) Qty: 10 RF: 0 alendronate 70 mg tablet 70 mg PO QWEEK RF: 0 aspirin [Aspir-Low] 81 MG tablet,delayed release (DR/EC) 81 mg PO DAILY RF: 0 metoprolol tartrate 12.5 MG tablet 12.5 mg PO BID RF: 0 atorvastatin [Lipitor] 10 MG tablet 20 mg PO DAILY RF: 0 Discharge Instructions Additional Instructions: Activity at Home after surgery: 1. Make sure you walk outside at least 4 times per day 2. You should be able to climb a flight of stairs 3. No driving while in pain or taking pain medications 4. No strenuous activity or heavy lifting for 4 weeks (open surgery) Diet, Nutrition, & wound healin. Avoid alcohol until after you are recovered from your surgery 2. Make sure to eat plenty of lean protein (meat, fish, eggs, cottage cheese, beans) 3. Eat a variety of fruits and vegetables. Eat plenty of high fiber foods to avoid constipation. 4. Drink plenty of liquids to stay hydrated and avoid constipation Pain Medications: 1. Tylenol 650 mg every 6 hours as needed and Ibuprofen 600 mg every 6 hours as needed 2. If a narcotic has been prescribed take as directed only for breakthrough pain For Constipation: 1. Colace 100 mg 2 x a day as needed for constipation Other: 1. You may shower daily. Do not scrub the incisions 2. Do not soak the incisions for 1 week 3. You may alternate ice and heat as needed for pain and swelling Wound Care: 1. Keep the incisions clean and dry Please call our office if you develop: 1. Fevers >101.5 2. Nausea or Vomiting 3. Worsening pain 4. Redness and thick discharge from the wounds If after hours please call the Hospital at and ask to speak to the on-call surgeon Referrals: Judith Osorio MD [Primary Care Provider] - (Depression, patient started on effexor. Please see within 1-2 weeks) Gloria Chavez MD [ [facility] STAFF PHYSICIAN] - 02/10/20 10:30 am Activity:: No lifting, pulling or pushing >20 lb x 4 weeks Equipment/Supplies:: Mepilex border dressing x4 Diet:: As Tolerated Discharge Orders Discharge Orders: Discharge Order (Routine); Ordered 02/04/20 Ordered By: Gloria Chavez DS: Summary Status at Discharge Functional status at discharge: independent ambulation Overall status at discharge: patient is progressing back to baseline Mental Status: mental status grossly normal Speech and Movement: speech and movement normal Mood: congruent mood Affect: normal affect Exam Psych Mental Status: mental status grossly normal Speech and Movement: speech and movement normal Mood: congruent mood Affect: normal affect DS: Data Vitals/I&O Vitals and I&O: Vital Signs Temperature 98.2 F 02/04/20 08:04 Temperature Source Tympanic 02/04/20 08:04 Pulse 64 02/04/20 08:50 Pulse Rhythm Regular 02/03/20 20:00 Pulse 56 L 02/02/20 22:40 Respiratory Rate 17 02/04/20 08:04 Respiratory Effort Non-Labored 02/03/20 20:00 Respiratory Depth Normal 02/03/20 20:00 Respiratory Pattern Normal 02/03/20 20:00 Blood Pressure 196/88 H 02/04/20 08:04 Blood Pressure Mean 109 02/02/20 22:36 Blood Pressure Position Supine 02/01/20 13:33 Pulse Oximetry 93 L 02/04/20 08:04 Respiratory End-tidal CO2 30 01/31/20 14:10 Oxygen Delivery Method Nasal Cannula 02/04/20 08:04 Oxygen Flow Rate 1 07/25/20 08:04 Pain Level 5 02/04/20 08:54 Comment 02/03/20 23:45 Intake & Output 02/03/20 02/03/20 02/04/20 11:59 23:59 11:59 Intake Total 2056.333 / 2637.333 580 / 2637.333 Output Total 30 / 3245 3215 / 3245 1665 / 1665 Balance 2027.333 / -607.667 -2635 / -607.667 -1665 / -1665 Weight 131 lb 2.801 oz 127 lb 3.307 oz Intake: IV 1817.333 / 1917.333 100 / 1917.333 Oral 240 / 720 480 / 720 Injectate 0 / 0 Left Abdomen 0 / 0 Output: Drainage 65 / 95 40 / 40 Left Abdomen 65 / 95 40 / 40 Urine 3150 / 3150 1625 / 1625 Other: Urine Color Pale Yellow Yellow Urine Appearance Clear Clear Clear Urine Odor None Comment pt requested catheter to remain overnight Stool Size Moderate Stool Characteristics Liquid Voiding Methods Bedside Commode Data Completed and Pending Labs on day of discharge: Labs from last 24 hours 02/04/20 06:20 WBC 8.43 RBC 4.38 Hgb 12.9 Hct 37.6 MCV 85.8 MCH 29.5 MCHC 34.3 RDW 13.0 Plt Count 285 MPV 9.2 PFSH Medical History Abnormal EKG (Acute) ADHD Allergic rhinitis (Acute) Angina pectoris (Chronic) Anorexia (Acute) Anxiety (Chronic) Bright red blood per rectum (Acute) CAD (coronary artery disease) Chest pain (Inactive) Pt. states it turned out to be acid reflux Cough (Acute) Depression (Chronic) Diverticulitis (Inactive) Family history of colon cancer (Resolved) GERD (gastroesophageal reflux disease) History of kidney stones (Acute) History of recurrent UTI (urinary tract infection) (Acute) History of rheumatic fever (Acute) HPV (human papilloma virus) infection (Acute) per pt. R/O came back negative Hyperlipidemia (Acute) Hypertension (Chronic) Hypokalemia (Inactive) Hypothyroidism (Chronic) Inflammation of small intestine (Acute) Juvenile rheumatoid arthritis (Acute) Lung nodule (Acute) Nocturnal hypoxia (Acute) Osteoporosis (Chronic) PTSD (post-traumatic stress disorder) (Acute) Pyogenic granuloma (Acute) Right inguinal hernia (Inactive) Seasonal allergies (Acute) Skin cancer of arm (Acute) Sleep apnea (Acute) Smoker (Acute) Upper respiratory infection (Acute) Surgical History History of total hip arthroplasty (Acute) Right S/P panniculectomy (Acute) Family History Father Colon cancer Social History Smoking/Tobacco Use Status: Current every day Alcohol Intake: never Drug use: Never Substance use type: does not use Do you feel safe at home: Yes Do you feel safe in your relationship?: Yes Additional Social history: not in a relationship
[2020-02-04 11:09] VITALS: BP 183/78; PULSE 61; RESP 16; TEMP 36.5; O2SAT 92
[2020-02-04] MEDS: Ibuprofen 600 MG TAB PO (11:18)
--- NOTE | 2020-02-04 12:24 | PT.INNT ---
Date of service: 02/04/20 Time of Service: 11:45 PT Notes Visit Reasons: BOWEL PERFORATION I entered Susies room 3 times this am. She was very sleepy and just wanted to rest. I did observe her transfer herself to commode and back to bed. Clean herself up independently. She is safe and stable. No treatment per pt request. d/c to home with daughter later this pm.
[2020-02-04] MEDS: oxyCODONE 5 MG TAB PO (13:44)
--- NOTE | 2020-02-04 14:31 | PDOC.CMDIS ---
- If Service Date Differs Date of service: 02/04/20 Time of Service: 14:31 LACE Index Scoring Tool - Questions: Length of Stay (in days): 4 - 6 Acuity (Admit via E.D.?): Yes Comorbidities: Any Tumor E.D. Visits: 2 - Answers: Total Score: 11 Risk of Readmission: High Risk Care Management Discharge Reason for Hospitalization: Bowel perforation status post surgical repair Discharge Plan: Jessa is being discharged home with no new services. She will follow up with her PCP, Dr. Chavez, and plan of care as directed. provides Jessa with a list of area therapists. Her daughter is driving her home via private vehicle. Patient/Family Education Needs: Nursing will review discharge instructions with Jessa re medications, activity level, follow-up appointments, and how to manage care at home.
--- NOTE | 2020-02-06 18:00 | PT.INDS ---
Date of service: 02/06/20 PT Notes Visit Reasons: BOWEL PERFORATION Physical Therapy Inpatient Discharge Summary Date: 02/06/2020 Date of service: 02/01/2020 through 02/03/2020 This is a clinical summary of care provided on the duration of dates listed above. No charge was made in the completion of this documentation. Referring Doctor: Gloria Chavez MD PT Orders: PT CONSULT: Exacerbation of chronic condition Precautions: Fall. Standard. Activity as tolerated. Patient Profile/Admitting Diagnosis: Jessa is a 64-year-old female who presented to the ED on 2019 with severe abdominal pain, bloating, nausea and inability to eat anything. She is status colonoscopy on 01/30/2020. She was diagnosed with bowel perforation and is status post exploratory laparotomy with bowel resection and anastomosis on postoperative day 1. PMHX: Medical History Abnormal EKG (Acute) ADHD Allergic rhinitis (Acute) Angina pectoris (Chronic) Anorexia (Acute) Anxiety (Chronic) Bright red blood per rectum (Acute) CAD (coronary artery disease) Chest pain (Inactive) Pt. states it turned out to be acid reflux Cough (Acute) Depression (Chronic) Diverticulitis (Inactive) Family history of colon cancer (Acute) GERD (gastroesophageal reflux disease) History of kidney stones (Acute) History of recurrent UTI (urinary tract infection) (Acute) History of rheumatic fever (Acute) HPV (human papilloma virus) infection (Acute) per pt. R/O came back negative Hyperlipidemia (Acute) Hypertension (Chronic) Hypokalemia (Inactive) Hypothyroidism (Chronic) Inflammation of small intestine (Acute) Juvenile rheumatoid arthritis (Acute) Lung nodule (Acute) Nocturnal hypoxia (Acute) Osteoporosis (Chronic) PTSD (post-traumatic stress disorder) (Acute) Pyogenic granuloma (Acute) Seasonal allergies (Acute) Skin cancer of arm (Acute) Sleep apnea (Acute) Smoker (Acute) Upper respiratory infection (Acute) Surgical History (Reviewed 01/31/24 2020:11 by Matthieu Abreu DO) History of total hip arthroplasty (Acute) Right S/P panniculectomy (Acute) Social History/Home Situation: 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 She has a flight of steps on her bedroom states that for while she recovers after she goes home from the hospital. She is independent with all aspects of ADLs without the need for an assistive ambulatory device nor adaptive equipment. Equipment Owned/DME: None Subjective: NT. See most recent INSURANCE PLAN SPECIALIST notes. Objective: General Observation: NT. See most recent INSURANCE PLAN SPECIALIST notes. Mental Status: NT. See most recent INSURANCE PLAN SPECIALIST notes. Pain: NT. See most recent INSURANCE PLAN SPECIALIST notes. ROM: Right Upper Extremity: Shoulder Flexion WFL. Shoulder abduction WFL. Elbow flexion WFL. Wrist flexion WFL. Opening and closing of hand WFL. Left Upper Extremity: Shoulder Flexion WFL. Shoulder abduction WFL. Elbow flexion WFL. Wrist flexion WFL. Opening and closing of hand WFL. Right Lower Extremity: Hip flexion WFL. Hip abduction WFL. Knee flexion WFL. Ankle dorsiflexion WFL. Ankle plantarflexion WFL. Left Lower Extremity: Hip flexion WFL. Hip abduction WFL. Knee flexion WFL. Ankle dorsiflexion WFL. Ankle plantarflexion WFL. Strength: Right Upper Extremity: Shoulder flexors 4/5. Shoulder abductors 45. Elbow flexors 4/5. Elbow extensors 4/5. Loom Technician strong. Left Upper Extremity: Shoulder flexors 4/5. Shoulder abductors 45. Elbow flexors 4/5. Elbow extensors 4/5. Loom Technician strong. Right Lower Extremity: Hip flexors 4-/5. Hip abductors 4-/5. Knee flexors 4-/5. Knee extensors 4-/5. Ankle dorsiflexors 4-/5. Ankle plantarflexors 4-/5. Left Lower Extremity: Hip flexors 4-/5. Hip abductors 4-/5. Knee flexors 4-/5. Knee extensors 4-/5. Ankle dorsiflexors 4-/5. Ankle plantarflexors 4-/5. Sensation: Intact as to pain and pressure on bilateral lower extremities. Bed Mobility/Transfers: Supine to sit supervision Sit to supine supervision Sit to stand supervision Stand to sit supervision Bed to chair supervision Chair to bed supervision Gait: 350 with FWW with SBA. Step-through gait pattern. Decreased natasha. No report of increased pain in surgical incision. Balance: Static Sitting: Normal Dynamic Sitting: Normal Static Standing: Fair Dynamic Standing: Fair Assessment: Jessa demonstrates functional mobility decline requiring the use of front wheeled walker for all mobility ADL performance, generalized weakness, difficulty with walking, and decreased activity tolerance due to postoperative status. Jessa is a 64-year-old female who presented to the ED on 2019 with severe abdominal pain, bloating, nausea and inability to eat anything. She is status colonoscopy on 01/30/2020. She was diagnosed with bowel perforation and is status post exploratory laparotomy with bowel resection and anastomosis on postoperative day 1. Goals: Goals X 3 days 1. Supine-Sit independent NOT MET 2. Sit-Supine independent NOT MET 3. Sit-Stand independent NOT MET 4. Stand-Sit independent NOT MET 5. Bed-Chair independent NOT MET 6. Chair-Bed independent NOT MET 7. Independent gait on level surface with use of least restrictive device for at least 300 feet without report of pain nor dyspnea NOT MET 8. Independent stair negotiation while holding onto bilateral rails for at least 10 steps without report of pain nor dyspnea NOT MET 9. Independent with home exercise program NOT MET 10. Good static and dynamic standing balance/tolerance NOT MET DISCHARGE RECOMMENDATIONS: Jessa will require front wheel walker to maximize independence and reduce fall risk at home. Home when medically cleared by MD. patient will benefit from home health PT services in order to progress mobility level using least restrictive assistive ambulatory device, assess home safety, identify additional equipment needs, and establish a functional maintenance program that will increase ability of patient to remain at home. TREATMENT CODE/TIME: NC. Thank you for the opportunity to participate in the care of this patient. Catherine Childress PT, DPT, CLT [facility] [place], [place]
== END 2020-02-04 17:26 | disposition home or self-care (01) | DRG 329 ==
LOC: ER 07:51 → SUR 08:14 → ICU 19:25 → MS 02-02 23:04
PROVIDERS: Internal Medicine; Student in an Organized Health Care Education/Training Program; Admitting Provider Surgery; Emergency Provider Emergency Medicine; PCP Family Medicine; Visit Provider Surgery
PROC: 0DBN0ZZ Excision of Sigmoid Colon, Open Approach (ICD-10-PCS; CPT 49000; principal; 2020-01-31 09:00)
DX: K63.1 Perforation of intestine (nontraumatic) (principal); K65.8 Other peritonitis; T85.630A Leakage of cranial or spinal infusion catheter, initial encounter; G89.18 Other acute postprocedural pain; K57.30 Diverticulosis of large intestine without perforation or abscess without bleeding; Z98.890 Other specified postprocedural states; R11.0 Nausea; T50.3X5A Adverse effect of electrolytic, caloric and water-balance agents, initial encounter; F32.9 Major depressive disorder, single episode, unspecified; F43.10 Post-traumatic stress disorder, unspecified; F41.9 Anxiety disorder, unspecified; K21.9 Gastro-esophageal reflux disease without esophagitis; E03.9 Hypothyroidism, unspecified; I10 Essential (primary) hypertension; Z03.818 Encounter for observation for suspected exposure to other biological agents ruled out; Z80.0 Family history of malignant neoplasm of digestive organs; I25.10 Atherosclerotic heart disease of native coronary artery without angina pectoris; Z87.19 Personal history of other diseases of the digestive system; E78.5 Hyperlipidemia, unspecified; F17.210 Nicotine dependence, cigarettes, uncomplicated
CPT/HCPCS: 44140; 44955; 36415; 80048; 80053; 83690; 85027; 86850; 86900; 86901; 93005; 96361; 96365; 96375; 97110; 97162; 97530; 99223; 99285; J1650; NC; U0003; 74176; 81003; 81015; 83735; 85025; 88302; 88307; 93010; J0131; J1100; J1885; J1940; J1941; J2001; J2060; J2250; J2270; J2370; J2405; J2543; J2704; J3010; J3480; J3490

== ENCOUNTER → 2020-02-10 10:23 | Outpatient (BNVA) | payer OTHER, SELFPAY | PROVIDERS: PCP Family Medicine; Referring Provider Family Medicine; Visit Provider Surgery | DX: Z48.815 Encounter for surgical aftercare following surgery on the digestive system (principal); K63.1 Perforation of intestine (nontraumatic) ==

== ENCOUNTER 2020-02-15 14:57 | Outpatient (REF) | payer OTHER, SELFPAY ==
[2020-02-15 21:37] LABS: Abs Immature Grans 0.06 10^3/uL (0.0-0.06); Absolute Basophil Count 0.06 10^3/uL (0.0-0.2); Absolute Lymphocyte Count 1.81 10^3/uL (1.2-3.4); Absolute Monocyte Count 0.98 10^3/uL (0.1-0.8); Absolute Neutrophil Count 7.18 10^3/uL (1.2-6.7); Basophils % 0.6; Eosinophils % 2.9; HCT 45.7 % (36.0-46.0); HGB 14.5 g/dL (11.2-15.7); Immature Grans % 0.6; Lymphocytes % 17.4; MCH 28.5 pg (27.0-33.0); MCHC 31.7 % (32.0-36.0); MCV 89.8 fL (80-95); MPV 9.1 fL (8.0-11.0); Monocytes % 9.4; Neutrophils % 69.1; Nucleated RBC 0 %; Platelet Count 470 10^3/uL (130-400); RBC 5.09 10^6/uL (3.93-5.22); RDW-SD 45.3 fL; WBC 10.39 10^3/uL (4.4-10.8)
[2020-02-15 22:02] LABS: ALT 32 U/L (14-59); AST 31 U/L (15-37); Albumin 3.3 g/dL (3.4-5.0); Alkaline Phosphatase 109 U/L (46-116); Anion Gap 7.8 mmol/L (3-11); BUN 16 mg/dL (7-18); CO2 26.2 mmol/L (21.0-32.0); Calcium 8.9 mg/dL (8.5-10.1); Chloride 106 mmol/L (98-107); Glucose 85 mg/dL (74-106); Potassium 5.2 mmol/L (3.5-5.1); Sodium 140 mmol/L (136-145); Total Protein 6.5 g/dL (6.4-8.2)
[2020-02-15 22:28] LABS: Bilirubin, Total 0.3 mg/dL (0.2-1.0); CREATININE 0.75 mg/dL (0.55-1.02)
== END 2020-02-15 15:17 ==
LOC: NCHCN 14:57
PROVIDERS: PCP Family Medicine; Visit Provider Physician Assistant Medical
DX: K63.1 Perforation of intestine (nontraumatic) (principal)
CPT/HCPCS: 80053; 87077; 85025; 87070; 87186; 87205

== ENCOUNTER → 2020-02-17 14:22 | Outpatient (BNVA) | payer OTHER, SELFPAY | PROVIDERS: PCP Family Medicine; Referring Provider Family Medicine; Visit Provider Surgery | DX: Z48.89 Encounter for other specified surgical aftercare (principal) ==

== ENCOUNTER → 2020-02-21 13:17 | Outpatient (BNVA) | payer OTHER, SELFPAY | PROVIDERS: PCP Family Medicine; Referring Provider Family Medicine; Visit Provider Surgery | DX: Z51.89 Encounter for other specified aftercare (principal) ==

== ENCOUNTER 2020-02-24 21:26 | Outpatient (REF) | payer OTHER, SELFPAY | END 2020-02-24 21:46 | LOC: NCHCN 21:26 | PROVIDERS: PCP Family Medicine; Visit Provider Family Medicine | DX: Z48.89 Encounter for other specified surgical aftercare (principal) | CPT/HCPCS: 87077; 87070; 87186; 87205 ==

== ENCOUNTER → 2020-03-16 12:58 | Outpatient (BNVA) | payer OTHER, SELFPAY | PROVIDERS: PCP Family Medicine; Referring Provider Family Medicine; Visit Provider Surgery | DX: K40.90 Unilateral inguinal hernia, without obstruction or gangrene, not specified as recurrent (principal); Z11.59 Encounter for screening for other viral diseases | CPT/HCPCS: 99213 ==

== ENCOUNTER 2020-03-30 08:51 | Outpatient (CLI) | payer OTHER, SELFPAY ==
[2020-03-31 17:47] LABS: COVID-19 RT-PCR Result NEGATIVE (Negative)
== END 2020-03-30 09:11 ==
PROVIDERS: PCP Family Medicine; Visit Provider Surgery
DX: Z01.818 Encounter for other preprocedural examination (principal)
CPT/HCPCS: U0003

== ENCOUNTER 2020-04-04 08:03 | Day surgery (SDC) | payer OTHER, SELFPAY ==
[2020-04-04] VITALS (7 sets, daily range): BP systolic 134–196; BP diastolic 55–101; PULSE 62–80; RESP 13–30; TEMP 35.9–36.5; O2SAT 93–98
--- NOTE | 2020-04-04 06:37 | ROE_ITS ---
Date of service: 04/04/20 Time of Service: 10:14 Operative Note Operative Note DATE OF PROCEDURE: 04/04/20 PRE-OP DIAGNOSIS: Right inguinal hernia POST-OP DIAGNOSIS: other (Right direct and indirect hernia) PROCEDURE: Right inguinal hernia repair with mesh SURGEON: Gloria Chavez BEHAVIORAL SPECIALIST: Mey Huitron ANESTHESIA: GETA (ASA 2/ Julissa Alarcon, ADELITA) and regional ESTIMATED BLOOD LOSS: 25 PATHOLOGY: none sent COMPLICATIONS: None Patient was transported to: PACU Patient's condition: stable Implants: BARD Mesh: [id number] REF- [id number] 2024-08-09 Indications: Right inguinal hernia: A\\ 64 year old with a right inguinal hernia. At one point the hernia had the appendix within it. Follow up CT scan showed a hernia without fat, bowel or appendix within it. The hernia has started to bother her. We reviewed anatomy of inguinal hernias as well as the repair. We discussed lifting restrictions after surgery and reviewed complications P\\ Right inguinal hernia repair with mesh COVID testing prior Risks, benefits and complications have been reviewed. Complications include but are not limited to bleeding, pain, infection, injury to underlying structures like bowel and adverse reaction to the medication. Questions were entertained and answered to their satisfaction and they wished to proceed. No guarantees were given or implied. COVID-19 testing explained to the patient. Reason for test reviewed. Quarantine per state requirements reviewed with patient. Patient understands and agrees to testing. Findings: Medium sized indirect hernia Direct hernia Procedure Description: After informed consent was obtained the patient was taken to the operating room and placed in a supine position. Monitors and SCDs were applied and a timeout was done. The patient's name, date of , procedure type, procedure site, allergies to medications, preoperative antibiotic, and DVT prophylaxis were all reviewed. Fire risk was assessed. Next anesthesia did a tap block on the right side under ultrasound guidance. Please see their separate dictation. Once anesthesia was done the abdomen was prepped and draped in a sterile surgical fashion. 1% lidocaine was injected into the dermis in the right lower quadrant. An incision was made with a 10 blade in the right lower quadrant. Dissection was done with cautery through the subcutaneous tissues and Jeniffer's fascia down to the external oblique fascia. The external ring was identified and the external oblique fascia was opened sharply through the external ring. The cut fascia was grasped with hemostats. A hernia sac was identified and removed from the cord structures using blunt dissection. The hernia sac was pushed back into the peritoneum. A 3 x 6 piece of mesh was then cut to size and attached to the lacunar ligament using a 2-0 Prolene double armed suture. The mesh was secured laterally and medially with a 2-0 Prolene, with a running suture. Once the mesh was secured the tissues were irrigated with some normal saline. No bleeding was identified. The external oblique fascia was re- approximated using 2-0 Vicryl running suture. The Jeniffer's fascia was re-approximated using interrupted 3-0 Vicryl. The dermis was re-approximated with a running 4-0 Vicryl. The skin was cleaned and dried and skin affix was applied. The patient was woken up and taken back to recovery in stable condition. There were no immediate complications. Sponge, instrument and needle counts were correct at the end of the case x2.
--- NOTE | 2020-04-04 06:40 | PDOC.DSDIS_ITS ---
Discharge Plan Disposition Patient Disposition: HOME Condition: Good Discharge Details Reason For Visit: Right inguinal hernia Attending Provider: Gloria Chavez Primary Care Provider: Judith Osorio V Home Meds and New Rx's Prescriptions: Continued nitroglycerin [Nitrostat] 0.4 mg tablet, sublingual 0.4 mg SL Q5M PRNRF: 0 hydrocortisone acetate [Anusol-HC] 25 mg suppository 25 mg LA DAILY RF: 0 omeprazole 40 mg capsule,delayed release(DR/EC) 40 mg PO DAILY RF: 0 levothyroxine [Synthroid] 50 mcg tablet 50 mcg PO DAILY RF: 0 triamcinolone acetonide [Nasacort] 55 mcg aerosol,spray 1 spray BRYCE DAILY RF: 0 cholecalciferol (vitamin D3) 50 mcg (2,000 unit) capsule 50 mcg PO DAILY RF: 0 glucosamine-chondroitin [Osteo Bi-Flex] 250-200 mg Tablet 1 tab PO DAILY RF: 0 alendronate 70 mg tablet 70 mg PO QWEEK RF: 0 acetaminophen [Tylenol] 325 mg Tablet 650 mg PO Q6H PRN PRNQty: 30 RF: 0 docusate sodium [Colace] 100 mg Capsule 100 mg PO BID PRN (Reason: constipation) Qty: 60 RF: 0 venlafaxine [Effexor XR] 37.5 mg Capsule,Extended Release 24hr 37.5 mg PO DAILY Qty: 30 RF: 0 ibuprofen [IBU] 600 mg Tablet 600 mg PO Q6H PRN (Reason: Abdominal Pain) Qty: 30 RF: 0 aspirin [Aspir-Low] 81 MG tablet,delayed release (DR/EC) 81 mg PO DAILY RF: 0 metoprolol tartrate 12.5 MG tablet 12.5 mg PO BID RF: 0 atorvastatin [Lipitor] 10 MG tablet 20 mg PO DAILY RF: 0 Discharge Instructions Instructions: Open Herniorrhaphy (DC) Additional Instructions: Activity at Home after surgery: 1. Make sure you walk outside at least 4 times per day 2. You should be able to climb a flight of stairs 3. No driving while in pain or taking pain medications 4. No strenuous activity or heavy lifting for 4 weeks (open surgery) Diet, Nutrition, & wound healin. Avoid alcohol until after you are recovered from your surgery 2. Make sure to eat plenty of lean protein (meat, fish, eggs, cottage cheese, beans) 3. Eat a variety of fruits and vegetables. Eat plenty of high fiber foods to avoid constipation. 4. Drink plenty of liquids to stay hydrated and avoid constipation Pain Medications: 1. Tylenol 650 mg every 6 hours as needed and Ibuprofen 600 mg every 6 hours as needed. You may alternate between the 2 medications every 3 hours 2. If a narcotic has been prescribed take as directed only for breakthrough pain For Constipation: 1. Take Milk of Magnesia or MiraLax as needed for constipation Other: 1. You may shower daily. Do not scrub the incisions 2. Do not soak the incisions for 1 week 3. You may alternate ice and heat as needed for pain and swelling Wound Care: 1. Keep the incisions clean and dry Please call our office if you develop: 1. Fevers >101.5 2. Nausea or Vomiting 3. Worsening pain 4. Redness and thick discharge from the wounds If after hours please call the Hospital at and ask to speak to the on-call surgeon Referrals: Gloria Chavez MD [ [facility] STAFF PHYSICIAN] - 04/17/20 9:00 am Activity:: No liftin >20 lb x 4 week Remove Dressings/Wound Care:: Do Not Remove Shower/Bathe:: 24 hours Diet:: As Tolerated
[2020-04-04] MEDS: Acetaminophen 500 MG TAB 1000 MG PO (08:38)
[2020-04-04] MEDS: Lactated Ringers 1,000 ML 80 ML IV (08:55)
[2020-04-04] MEDS: ceFAZolin 2 GM/50 ML BAG IVPB (09:10)
[2020-04-04] MEDS: Bupivacaine 0.25% Pres-Free 10 ML VIAL (09:15)
[2020-04-04] MEDS: Lidocaine 1% Multi-Dose 50 ML VIAL (09:35)
[2020-04-04] MEDS: fentaNYL 100 MCG/2 ML VIAL IVP (10:59)
== END 2020-04-04 12:15 | disposition home or self-care (01) ==
LOC: SUR 08:03
PROVIDERS: PCP Family Medicine; Visit Provider Surgery
PROC: (CPT 49505; principal; 2020-04-04 09:15)
DX: K40.90 Unilateral inguinal hernia, without obstruction or gangrene, not specified as recurrent (principal); I25.10 Atherosclerotic heart disease of native coronary artery without angina pectoris; F32.9 Major depressive disorder, single episode, unspecified
CPT/HCPCS: 49505; 76942; C1781; J0690; J1100; J1885; J2405; J3010

== ENCOUNTER → 2020-04-17 11:28 | Outpatient (BNVA) | payer OTHER, SELFPAY | PROVIDERS: PCP Family Medicine; Referring Provider Family Medicine; Visit Provider Surgery | DX: Z48.815 Encounter for surgical aftercare following surgery on the digestive system (principal); K57.32 Diverticulitis of large intestine without perforation or abscess without bleeding; F32.9 Major depressive disorder, single episode, unspecified; I10 Essential (primary) hypertension | CPT/HCPCS: 99212; 99213 ==

== ENCOUNTER 2020-08-23 20:19 | Outpatient (REF) | payer OTHER, SELFPAY ==
[2020-08-23 20:09] LABS: Bilirubin Small (Negative); Blood Negative (Negative); Clarity Clear (Clear); Glucose Negative (Negative); Ketones Negative (Negative); Leukocyte Esterase Negative (Negative); Nitrite Negative (Negative); Specific Gravity >= 1.030 (1.005-1.025); Urobilinogen 0.2 EU/dL (Up TO 0.2); pH 5.5 (5-8)
== END 2020-08-23 20:20 | disposition home or self-care (01) ==
LOC: NCHCN 20:19
PROVIDERS: PCP Family Medicine; Visit Provider Family Medicine
DX: R10.84 Generalized abdominal pain (principal)
CPT/HCPCS: 81003

== ENCOUNTER 2021-02-14 20:01 | Outpatient (REF) | payer OTHER, SELFPAY ==
[2021-02-14 20:46] LABS: Bilirubin Small (Negative); Blood Large (Negative); Clarity Cloudy (Clear); Glucose Negative (Negative); Ketones Trace mg/dL (Negative); Leukocyte Esterase Small (Negative); Nitrite Positive (Negative); Specific Gravity 1.025 (1.005-1.025); Urobilinogen 0.2 EU/dL (Up TO 0.2); pH 5.5 (5-8)
[2021-02-14 20:52] LABS: RBC >50 HPF (0-2); WBC >50 HPF (0-5)
[2021-02-14 20:56] LABS: C & S Indicated? Yes
== END 2021-02-14 20:02 | disposition home or self-care (01) ==
LOC: NCHCN 20:01
PROVIDERS: PCP Family Medicine; Visit Provider Family Medicine
DX: R82.998 Other abnormal findings in urine (principal); Z87.440 Personal history of urinary (tract) infections
CPT/HCPCS: 87077; 81003; 81015; 87086; 87186

== ENCOUNTER 2021-02-20 10:30 | Outpatient (REF) | payer MEDICARE, OTHER, SELFPAY ==
[2021-02-20 20:30] LABS: HCT 48.5 % (36.0-46.0); HGB 15.9 g/dL (11.2-15.7); MCH 28.4 pg (27.0-33.0); MCHC 32.8 % (32.0-36.0); MCV 86.8 fL (80-95); MPV 10.8 fL (8.0-11.0); Platelet Count 263 10^3/uL (130-400); RBC 5.59 10^6/uL (3.93-5.22); RDW 13.2 % (11.7-14.6); RDW-SD 41.7 fL; WBC 9.59 10^3/uL (4.4-10.8)
[2021-02-20 20:46] LABS: Hemoglobin A1C 5.8 % (<5.7)
[2021-02-20 20:57] LABS: ALT 14 U/L (14-59); AST 18 U/L (15-37); Alkaline Phosphatase 87 U/L (46-116); Anion Gap 7.6 mmol/L (3-11); BUN 11 mg/dL (7-18); Bilirubin, Total 0.6 mg/dL (0.2-1.0); CO2 29.4 mmol/L (21.0-32.0); CREATININE 0.7 mg/dL (0.55-1.02); Chloride 106 mmol/L (98-107); Glucose 115 mg/dL (74-106); Potassium 4.7 mmol/L (3.5-5.1); Sodium 143 mmol/L (136-145); Total Protein 6.8 g/dL (6.4-8.2)
[2021-02-20 21:42] LABS: FREE T4 1.07 ng/dL (0.76-1.46)
== END 2021-02-20 10:31 | disposition home or self-care (01) ==
LOC: NCHCN 10:30
PROVIDERS: PCP Family Medicine; Visit Provider Family Medicine
DX: E03.9 Hypothyroidism, unspecified (principal); F32.9 Major depressive disorder, single episode, unspecified; I25.10 Atherosclerotic heart disease of native coronary artery without angina pectoris; Z87.440 Personal history of urinary (tract) infections; R73.09 Other abnormal glucose; R82.998 Other abnormal findings in urine
CPT/HCPCS: 80053; 85027; 83036; 84439; 87086

== ENCOUNTER 2021-04-01 16:18 | Outpatient (REF) | payer OTHER, SELFPAY | END 2021-04-01 16:19 | disposition home or self-care (01) | LOC: NCHCN 16:18 | PROVIDERS: PCP Family Medicine; Visit Provider Family Medicine | DX: R30.0 Dysuria (principal) | CPT/HCPCS: 87077; 87086; 87186 ==

== ENCOUNTER 2021-06-24 19:04 | Outpatient (REF) | payer OTHER, SELFPAY ==
[2021-06-24 14:23] LABS: Bilirubin Negative (Negative); Blood Moderate (Negative); Clarity Sl Cloudy (Clear); Glucose Negative (Negative); Ketones Negative (Negative); Leukocyte Esterase Small (Negative); Nitrite Positive (Negative); Specific Gravity >= 1.030 (1.005-1.025); Urobilinogen 0.2 EU/dL (Up TO 0.2); pH 5.5 (5-8)
[2021-06-24 14:32] LABS: Bacteria Moderate HPF (Negative); C & S Indicated? C&S Done As Ordered; Casts Negative LPF (Negative); Crystals Negative HPF (Negative); Epithelial Cells Few HPF (Negative); Mucus Negative (Negative); RBC 20-50 HPF (0-2)
== END 2021-06-24 19:05 | disposition home or self-care (01) ==
LOC: LBN 19:04
PROVIDERS: PCP Family Medicine; Visit Provider Family Medicine
DX: R30.0 Dysuria (principal)
CPT/HCPCS: 87077; 81003; 81015; 87086; 87186

== ENCOUNTER 2022-03-27 18:12 | Outpatient (REF) | payer MEDICARE, SELFPAY ==
[2022-03-27 20:21] LABS: ALT 26 U/L (14-59); AST 25 U/L (15-37); Albumin 4.1 g/dL (3.4-5.0); Alkaline Phosphatase 75 U/L (46-116); Anion Gap 4.5 mmol/L (3-11); BUN 12 mg/dL (7-18); Bilirubin, Total 0.6 mg/dL (0.2-1.0); CO2 32.5 mmol/L (21.0-32.0); CREATININE 0.8 mg/dL (0.55-1.02); Calcium 9.7 mg/dL (8.5-10.1); Chloride 105 mmol/L (98-107); Estimated GFR 80.21 (mL/min/1.73m2); Glucose 94 mg/dL (74-106); Sodium 142 mmol/L (136-145); TSH (W/Ref FT4) 0.88 uIU/mL (0.36-3.74); Total Protein 6.9 g/dL (6.4-8.2)
[2022-03-27 20:24] LABS: Hemoglobin A1C 5.8 % (<5.7)
== END 2022-03-27 18:13 | disposition home or self-care (01) ==
LOC: NCHCN 18:12
PROVIDERS: PCP Family Medicine; Visit Provider Family Medicine
DX: R73.03 Prediabetes (principal); E03.9 Hypothyroidism, unspecified; I10 Essential (primary) hypertension; E78.5 Hyperlipidemia, unspecified
CPT/HCPCS: 80053; 83036; 84443

== ENCOUNTER → 2022-04-10 03:01 | Outpatient (CLI) | payer MEDICARE, SELFPAY ==
--- NOTE | 2022-04-10 | DI.CTLCSR_ITS ---
Exam(s) CT CHEST LUNG CANCER SCREEN EXAM: CT CHEST LUNG CANCER SCREEN CLINICAL HISTORY: SMOKER F17.210, SCREENING FOR LUNG CANCER TECHNIQUE: Imaging Protocol: Axial computed tomography images with coronal and sagittal reformatted images were created and reviewed COMPARISON: CT CHEST FOR PULMONARY EMBOLUS from 07/29/2017 FINDINGS: Tracheobronchial tree: Patent where visualized. Pulmonary parenchyma: No consolidation or dominant measurable mass. There is scarring in the right mi ddle and lingular lobes. Mild atelectatic changes are seen in the lung bases. Lung Nodules: There is a 3 mm nodule in the left lower lobe. Mediastinum and Lachelle: No dominant adenopathy or fluid collection. The esophagus is unremarkable. Thyroid gland: Unremarkable. Lymph nodes: Unremarkable. Pleura: No effusion or pneumothorax. Heart: The heart is not dilated. Coronary artery calcifications are present. No pericardial effusion . Aorta: Thoracic aorta non-dilated.Atherosclerosis. Upper abdomen: Unremarkable. Soft Tissues: Unremarkable. Bones: Within normal limits. IMPRESSION: 3 mm left lower lobe pulmonary nodule. Lung RADS Cat 2 - Benign Appearance / Behavior: Nodules with a very low likelihood of becoming a clin ically active cancer due to size or lack of growth Lung-RADS 1.0 CATEGORIES: Category 0 - Prior chest CT exam(s) being located for comparison. Category 1 - Annual screening in 12 months. No nodules or definitely benign nodules. Category 2 - Annual screening in 12 months. Benign appearance. Nodules with low likelihood of becomin g active cancer. Category 3 - 6-month follow-up. Probably benign. Short-term follow-up suggested. Nodules with low lik elihood of becoming active cancer. Category 4A - 3-month follow-up and CT/PET if >8 mm in size. Suspicious finding. Findings which requi re additional testing. Category 4B - Findings which require additional testing and tissue sampling. Suspicious finding. Category 4X - Category 3 or 4 nodules with additional features or imaging findings that increases the suspicion of malignancy. Modifier S- Potentially clinically significant finding. (Non lung cancer) RADIATION DOSE DELIVERED: 72.34mGy.cm Total DLP 1.84mGy CTDIvol 72.34mGy.cm Total DLP 1.84mGy CTDIvol DATA REPOSITORY: All CT scans at this facility are submitted to the National Radiology Data Registry (NRDR) Dose Index Registry (DIR) with the [employer] (ACR). RADIATION OPTIMIZATION: All CT scans at this facility use at least one of these dose optimization te chniques: automated exposure control; mA and/or kV adjustment per patient size (includes targeted exa ms where dose is matched to clinical indication); or iterative reconstruction.
== END ==
PROVIDERS: PCP Family Medicine; Visit Provider Family Medicine
DX: F17.210 Nicotine dependence, cigarettes, uncomplicated (principal); Z12.2 Encounter for screening for malignant neoplasm of respiratory organs; R91.1 Solitary pulmonary nodule
CPT/HCPCS: 71271

== ENCOUNTER → 2023-01-26 12:54 | Outpatient (BNVA) | payer MEDICARE, SELFPAY | PROVIDERS: PCP Family Medicine; Referring Provider Family Medicine; Visit Provider Nurse Practitioner Gerontology | DX: R31.0 Gross hematuria (principal); Z87.440 Personal history of urinary (tract) infections; F17.210 Nicotine dependence, cigarettes, uncomplicated | CPT/HCPCS: 81003; 99214 ==

== ENCOUNTER 2023-04-06 16:04 | Outpatient (REF) | payer MEDICARE, SELFPAY ==
[2023-04-06 20:56] LABS: ALT 19 U/L (14-59); AST 18 U/L (15-37); Alkaline Phosphatase 91 U/L (46-116); BUN 13 mg/dL (7-18); Bilirubin, Total 0.4 mg/dL (0.2-1.0); CREATININE 1.2 mg/dL (0.55-1.02); Calcium 9.4 mg/dL (8.5-10.1); Chloride 101 mmol/L (98-107); Glucose 113 mg/dL (74-106); Magnesium 1.5 mg/dL (1.8-2.4); Potassium 4.7 mmol/L (3.5-5.1); Sodium 139 mmol/L (136-145); TSH (W/Ref FT4) 0.65 uIU/mL (0.36-3.74); Total Protein 6.9 g/dL (6.4-8.2)
[2023-04-06 21:43] LABS: Epithelial Cells Moderate HPF (Negative); WBC 20-50 HPF (0-5)
[2023-04-06 21:44] LABS: Bacteria Rare HPF (Negative); C & S Indicated? C&S Done As Ordered; Crystals Negative HPF (Negative); Mucus Heavy (Negative)
[2023-04-06 23:05] LABS: Bilirubin, Direct 0.2 mg/dL (0.0-0.2)
== END 2023-04-06 16:05 | disposition home or self-care (01) ==
LOC: NCHCN 16:04
PROVIDERS: PCP Family Medicine; Visit Provider Nurse Practitioner Family
DX: R19.7 Diarrhea, unspecified (principal); R82.2 Biliuria; R82.998 Other abnormal findings in urine
CPT/HCPCS: 80053; 87077; 81015; 82248; 83036; 83735; 84443; 85025; 87086; 87186

== ENCOUNTER → 2023-04-08 01:04 | Outpatient (CLI) | payer MEDICARE, SELFPAY ==
--- NOTE | 2023-04-08 | DI.US_ITS ---
Exam(s) US ABDOMEN RENAL EXAM: US ABDOMEN RENAL CLINICAL HISTORY: HEMATURIA,R31.9,BILIRUBINURIA,R82.2 TECHNIQUE: Ultrasound abdomen performed using standard protocol. COMPARISON: CT CT ABDOMEN PELVIS WO from 01/31/2020 FINDINGS: ABDOMINAL AORTA AND IVC: Visualized portions normal caliber. PANCREAS: Normal where visualized. LIVER: There is fatty infiltration of the liver. The liver measures 14.5 cm long. Hepatopedal flow in the Portal Vein. GALLBLADDER: No evidence of cholelithiasis. No evidence of wall thickening. No pericholecystic fluid identified. There is a 0.3 cm polyp in the gallbladder. BILIARY SYSTEM: Common bile duct measures < 7 mm. No intrahepatic biliary ductal dilation. PRATER'S SIGN: Negative. SPLEEN: Not enlarged. ASCITES: None seen. Renal size in cm: Right: 9.3. Left: 8.5. Echogenicity: Normal. Hydronephrosis: No. Cyst or mass: No. Nephrolithiasis: No. Other findings: None. Bladder:The bladder is not well distended limiting evaluation. Ureteral jets: Right: Not visualized on this examination. Left: Not visualized on this examination. Prevoid vol:48 cc Postvoid vol:19 cc Renal color flow: Symmetric and within normal limits. IMPRESSION: 1. Hepatic steatosis. 2. 3 mm gallbladder polyp. No evidence of cholelithiasis or biliary ductal dilatation. 3. No evidence of hydronephrosis or nephrolithiasis. DATA REPOSITORY:
== END ==
PROVIDERS: PCP Family Medicine; Visit Provider Nurse Practitioner Family
DX: K76.0 Fatty (change of) liver, not elsewhere classified (principal); K82.8 Other specified diseases of gallbladder
CPT/HCPCS: 76770; 76700

== ENCOUNTER 2023-04-08 09:37 | Outpatient (CLI) | payer MEDICARE, SELFPAY ==
[2023-04-08 14:11] LABS: Abs Immature Grans 0.04 10^3/uL (0.0-0.06); Absolute Basophil Count 0.05 10^3/uL (0.0-0.2); Absolute Eosinophil Count 0.16 10^3/uL (0.0-0.7); Absolute Lymphocyte Count 2.06 10^3/uL (1.2-3.4); Absolute Monocyte Count 0.79 10^3/uL (0.1-0.8); Absolute Neutrophil Count 6.39 10^3/uL (1.2-6.7); Basophils % 0.5; Eosinophils % 1.7; HCT 47.1 % (36.0-46.0); HGB 15.3 g/dL (11.2-15.7); Immature Grans % 0.4; Lymphocytes % 21.7; MCH 26.6 pg (27.0-33.0); MCHC 32.5 % (32.0-36.0); MCV 82 fL (80-95); MPV 9.2 fL (8.0-11.0); Monocytes % 8.3; Neutrophils % 67.4; Platelet Count 346 10^3/uL (130-400); RBC 5.76 10^6/uL (3.93-5.22); RDW 14.3 % (11.7-14.6); RDW-SD 42.1 fL; WBC 9.49 10^3/uL (4.4-10.8)
[2023-04-08 14:44] LABS: Hemoglobin A1C 5.7 % (<5.7)
== END 2023-04-08 09:38 | disposition home or self-care (01) ==
LOC: LBO 09:44
PROVIDERS: Nurse Practitioner Family; PCP Family Medicine; Visit Provider Family Medicine
DX: R19.7 Diarrhea, unspecified (principal); R73.03 Prediabetes; I10 Essential (primary) hypertension
CPT/HCPCS: 36415; 83036; 85025

== ENCOUNTER 2023-04-11 22:29 | Outpatient (REF) | payer MEDICARE, SELFPAY ==
[2023-04-11 23:33] LABS: C Diff PCR Negative (Negative)
[2023-04-12 22:34] LABS: Campylobacter PCR Negative (Negative); Salmonella PCR Negative (Negative); Shiga Toxin PCR Negative (Negative); Shigella/Enteroinvasive Ecoli Negative (Negative)
== END 2023-04-11 22:30 | disposition home or self-care (01) ==
LOC: NCHCN 22:29
PROVIDERS: PCP Family Medicine; Visit Provider Nurse Practitioner Family
DX: R19.7 Diarrhea, unspecified (principal)
CPT/HCPCS: 87493; 87505; 83630

== ENCOUNTER → 2023-05-06 13:29 | Outpatient (BNVA) | payer MEDICARE, SELFPAY | PROVIDERS: PCP Family Medicine; Referring Provider Family Medicine; Visit Provider Nurse Practitioner Gerontology | DX: R31.9 Hematuria, unspecified (principal); N39.0 Urinary tract infection, site not specified | CPT/HCPCS: 81003; 99213 ==

== ENCOUNTER 2023-05-06 14:00 | Outpatient (REF) | payer MEDICARE, SELFPAY | END 2023-05-06 14:01 | disposition home or self-care (01) | LOC: LBN 14:00 | PROVIDERS: PCP Family Medicine; Visit Provider Nurse Practitioner Gerontology | DX: R31.9 Hematuria, unspecified (principal); Z87.440 Personal history of urinary (tract) infections | CPT/HCPCS: 87086 ==

== ENCOUNTER → 2023-05-22 02:42 | Outpatient (CLI) | payer MEDICARE, SELFPAY ==
--- NOTE | 2023-05-22 10:52 | DI.DEXA_ITS ---
Exam(s) XR DEXA BONE DENSITY W/WO CARLA EXAM: XR DEXA BONE DENSITY W/WO CARLA CLINICAL HISTORY: SCREENING FOR OSTEOPOROSIS IN POSTMENOPAUSAL WOMAN,Z78.0,PREVENTIVE HEALTH TECHNIQUE: Routine DEXA evaluation of the lumbar spine, hip, or forearm. COMPARISON: Prior DEXA scan July 2014 FINDINGS: Performed on a [employer] unit. Lateral image: No compression fracture evident. Lumbar Spine total T-score: -0.1. Prior 2014 reading was -0.8 Hip total T-score:-3.0. This is identical reading to 2015. Independent reading at the level of the femoral neck yields T-score of -2.2 Forearm total T-score: -2.8. Prior reading in 2014 was -3.1 IMPRESSION: Bone mineral density measures in the osteoporosis range. Fracture risk is high. Note: Any spine fracture indicates 5x risk for subsequent spine fracture and 2x risk for subsequent h ip fracture. World Health Organization criteria for BMD interpretation classify patients: Normal...... T- Score at or above -1.0 Osteopenic... T- Score between -1.0 and -2.5 Osteoporosis... T-Score at or below -2.5
== END ==
PROVIDERS: PCP Family Medicine; Visit Provider Family Medicine
DX: Z78.0 Asymptomatic menopausal state (principal); Z13.820 Encounter for screening for osteoporosis; F17.210 Nicotine dependence, cigarettes, uncomplicated
CPT/HCPCS: 77080

== ENCOUNTER → 2023-05-28 02:47 | Outpatient (CLI) | payer MEDICARE, SELFPAY ==
--- NOTE | 2023-05-28 | DI.CTLCSR_ITS ---
Exam(s) CT CHEST LUNG CANCER SCREEN EXAM: CT CHEST LUNG CANCER SCREEN CLINICAL HISTORY: SMOKER F17.200 CIGARETTE SMOKER F17.210 PREVENTIVE Z00.00 TECHNIQUE: Imaging Protocol: Axial computed tomography images with coronal and sagittal reformatted images were created and reviewed. Low dose screening protocol. COMPARISON: CT CT ABDOMEN PELVIS WO from 01/31/[address] CHEST LUNG CANCER SCREEN from 04/10/2022 FINDINGS: Pulmonary parenchyma: Large left perihilar mass and multiple abnormal almost confluent masslike densi ties seen in the superior segment of the left lower lobe extending to the pleura. Mass difficult to discretely measure without IV contrast, blending in with the aorta and pulmonary arteries. Rough toby surements are 6.5 x 4.5 the perihilar region. Mild emphysematous changes. Nodule right lower lobe measuring 7 millimeters. Small nodule versus scarring superior segment right lower lobe appears unchanged from prior. Tracheobronchial tree: No bronchiectasis or mucus plugging. Occlusion of bronchi to the superior seg ment of the left lower lobe.. Mediastinum and Lachelle: Enlarged node the left of the aorta measuring 3.5 x 2 cm. Small precarinal node . Pleura: No effusion. No pneumothorax. Mass extends to the level of the pleura. Heart: The heart is not dilated. Moderate coronary artery calcifications are seen. Mitral annular c alcifications. Aorta: Thoracic aorta non-dilated. Atherosclerotic changes. Upper abdomen: Bilateral adrenal masses not pre seen previously, suspicious for metastatic disease. Bones: Unremarkable for age. No lytic or blastic lesions Soft Tissues: Unremarkable. IMPRESSION: Left perihilar mass and multiple additional masses in the superior segment of the left upper lobe ext ending to the level of the pleura. AP window adenopathy. 6 millimeter nodule right lower lobe. Adr enal metastases. Findings called to Dr. Osorio. Lung RADS Cat 4X- highly suspicious with additional highly suspicious features which require additio nal testing and tissue sampling. Lung-RADS 1.0 CATEGORIES: Category 0 - Prior chest CT exam(s) being located for comparison. Category 1 - Annual screening in 12 months. No nodules or definitely benign nodules. Category 2 - Annual screening in 12 months. Benign appearance. Nodules with low likelihood of becomin g active cancer. Category 3 - 6-month follow-up. Probably benign. Short-term follow-up suggested. Nodules with low lik elihood of becoming active cancer. Category 4A - 3-month follow-up and CT/PET if >8 mm in size. Suspicious finding. Findings which requi re additional testing. Category 4B - Findings which require additional testing and tissue sampling. Category 4X - Category 3 or 4 nodules with additional features or imaging findings that increases the suspicion of malignancy. Modifier S- Potentially clinically significant findings (non lung cancer) RADIATION DOSE DELIVERED: Total DLP DATA REPOSITORY: All CT scans at this facility are submitted to the National Radiology Data Registry (NRDR) Dose Index Registry (DIR) with the [employer] (ACR). RADIATION OPTIMIZATION: All CT scans at this facility use at least one of these dose optimization te chniques: automated exposure control; mA and/or kV adjustment per patient size (includes targeted exa ms where dose is matched to clinical indication); or iterative reconstruction.
== END ==
PROVIDERS: PCP Family Medicine; Visit Provider Family Medicine
DX: F17.210 Nicotine dependence, cigarettes, uncomplicated (principal); Z12.2 Encounter for screening for malignant neoplasm of respiratory organs; R91.8 Other nonspecific abnormal finding of lung field
CPT/HCPCS: 71271

== ENCOUNTER 2023-06-18 10:57 | Emergency (ER) | payer MEDICARE, SELFPAY ==
[2023-06-18 10:59] VITALS: BP 121/68; PULSE 106; RESP 18; TEMP 35.9; O2SAT 96
--- NOTE | 2023-06-18 11:30 | RT.EKG_ITS ---
APPROVED REPORT Exam: Resting ECG Reason for Exam: chest pain Patient Location: E HR:89 bpm ECG Measurements Heart Rate 89 AXIS IL 152 P 41 QRSd 74 QRS -73 QT 334 T 62 QTc 407 Conclusion Sinus rhythm...normal P axis, V-rate 60- 99 Probable left atrial enlargement...P >50mS, <-0.10mV V1 Inferior infarct, old...Q >35mS, II III aVF Anteroseptal infarct, age indeterminate...Q >35mS, T neg, V1-V2 No ST segment or T wave abnormalities to suggest occlusive UT
--- NOTE | 2023-06-18 11:43 | DI.CT_ITS ---
Exam(s) CT CHEST PE ABD PELVIS W EXAM: CT CHEST PE ABD PELVIS W CLINICAL HISTORY: cancer hx, recent bx, left sided pain. TECHNIQUE: Imaging Protocol: Axial CT angiography was performed with multi-slice acquisition and mu lti-planar and/or 3D reconstructions. CONTRAST MATERIAL: Intravenous: Omnipaque 350 Contrast volume:100 ml COMPARISON: CR RT HIP COMPLETE AP PELVIS from 12/27/[address] ABDOMEN PELVIS W from 12/05/[address] ABDOMEN PELVIS WO from 01/31/[address] CHEST LUNG CANCER SCREEN from 05/28/2023 FINDINGS: CHEST: Pulmonary Arteries: No evidence of filling defects to suggest pulmonary emboli. Tracheobronchial tree: No bronchiectasis or mucus plugging. Mediastinum and Lachelle: Large left hilar and mediastinal adenopathy. Pulmonary parenchyma: Large left sided lung mass not grossly changed. No new infiltrates or masses. Mild emphysematous changes. Pleura: No effusion. No pneumothorax. Heart: The heart is notdilated. No coronary artery calcifications are seen. Aorta: Thoracic aorta non-dilated. Bones: Unremarkable for age. Tubes, Catheters, and Lines: None. ABDOMEN and PELVIS: Liver: Normal size. Normal density. Low-density lesion posteromedial right lobe of the liver, uncha nged from 2019.. Portal, Superior Mesenteric, and Splenic Veins: Unremarkable. Gallbladder and Biliary Tract: No radiodense calculus. No biliary dilatation. Pancreas: Normal density, no abnormal calcifications or inflammatory process. Spleen: Enlarged nearly 15 cm in length. Adrenals: Bilateral adrenal masses again noted. Kidneys: Normal size, contour and axis. No radiodense stones. No obstructive uropathy. No masses seen. Vasculature: Abdominal aorta non-dilated. Severe atherosclerotic changes. Bowel: Severe diverticulosis. No obstruction or bowel wall thickening. Appendix is unremarkable. Peritoneal Cavity: No ascites, collection or mesenteric inflammatory response. Lymph Nodes: Within normal limits. Soft Tissues: Unremarkable. Bladder: Mostly obscured by artifact from hip prosthesis. Reproductive Organs: Mostly obscured by artifact from hip prosthesis. Lymph Nodes: Within normal limits. Bones: Right hip prosthesis. Degenerative changes in the spine. No compression fracture. Chronic d eformity of the left femoral head. IMPRESSION: 1. No evidence of pulmonary embolism. Stable appearance of left lower lobe and left perihilar mass an d adenopathy. No acute abnormality. 2. No acute abdominal or pelvic process. Adrenal metastases again noted. Severe diverticulosis. No evidence of diverticulitis. RADIATION DOSE DELIVERED: Total DLP DATA REPOSITORY: All CT scans at this facility are submitted to the National Radiology Data Registry (NRDR) Dose Index Registry (DIR) with the [employer] (ACR). RADIATION OPTIMIZATION: All CT scans at this facility use at least one of these dose optimization te chniques: automated exposure control; mA and/or kV adjustment per patient size (includes targeted exa ms where dose is matched to clinical indication); or iterative reconstruction.
--- NOTE | 2023-06-18 11:47 | DI.CT_ITS ---
Exam(s) CT THORACIC LUMBAR SPINE REC EXAM: CT THORACIC LUMBAR SPINE REC CLINICAL HISTORY: hx of ca back pain. TECHNIQUE: Imaging Protocol: Axial, coronal and sagittal images were reconstructed from the chest ab domen and pelvic CT utilizing bone algorithm.. COMPARISON: CT CT CHEST PE ABD PELVIS W from 06/18/2023 FINDINGS: Thoracic spine: Bones: No fractures are seen. No destructive lesion. Mild scoliosis.. Soft tissues: The soft tissues of the chest are unremarkable. No large disk herniations are identifie d. Small endplate osteophytes which project anteriorly. Lumbar spine: Degenerative disc changes from L2-3 through L5-S1. Facet degenerative changes also pre sent at these levels. No compression fracture, lytic or blastic lesion. Mild degenerative scoliosis . Multilevel neural foraminal narrowing secondary to degenerative changes. No central canal stenosi s.. IMPRESSION: No acute abnormality of the thoracic or lumbar spine. Degenerative changes, greater in the lumbar sp ine. RADIATION DOSE DELIVERED: Total DLP DATA REPOSITORY: All CT scans at this facility are submitted to the National Radiology Data Registry (NRDR) Dose Index Registry (DIR) with the [employer] (ACR). RADIATION OPTIMIZATION: All CT scans at this facility use at least one of these dose optimization te chniques: automated exposure control; mA and/or kV adjustment per patient size (includes targeted exa ms where dose is matched to clinical indication); or iterative reconstruction.
--- NOTE | 2023-06-18 12:41 | ED.GENADUL_ITS ---
Discharge Plan Disposition Patient Disposition: Home Discharge Details Clinical Impression: Lung cancer, Acute pancreatitis Primary Care Provider: Judith Osorio V ED Provider: Maria M Soria Home Meds and New Rx's Prescriptions: New morphine 15 mg tablet 15 mg PO Q6H PRNQty: 12 0RF Continued nitroglycerin [Nitrostat] 0.4 mg tablet, sublingual 0.4 mg SL Q5M PRN Rx Instructions: do not exceed 3 doses per episode hydrocortisone acetate [Anusol-HC] 25 mg suppository 25 mg NC DAILY omeprazole 40 mg capsule,delayed release(DR/EC) 40 mg PO DAILY levothyroxine [Synthroid] 50 mcg tablet 50 mcg PO DAILY triamcinolone acetonide [Nasacort] 55 mcg aerosol,spray 1 spray BRYCE DAILY Rx Instructions: administer into each nostril cholecalciferol (vitamin D3) 50 mcg (2,000 unit) capsule 50 mcg PO DAILY gabapentin 300 mg capsule 300 mg PO DAILY gabapentin 100 mg capsule 100 mg PO DAILY albuterol sulfate [ProAir HFA] 90 mcg/actuation HFA aerosol inhaler 2 puff inhalation Q6H PRN fluticasone propionate [Flovent HFA] 220 mcg/actuation HFA aerosol inhaler 1 puff inhalation BID sertraline [Zoloft] 50 mg tablet 50 mg PO DAILY metoprolol tartrate 25 mg tablet 12.5 mg PO BID alendronate 70 mg tablet 70 mg PO QWEEK acetaminophen [Tylenol] 325 mg Tablet 650 mg PO Q6H PRN PRNQty: 30 0RF docusate sodium [Colace] 100 mg Capsule 100 mg PO BID PRN (Reason: constipation) Qty: 60 0RF ibuprofen [IBU] 600 mg Tablet 600 mg PO Q6H PRN (Reason: Abdominal Pain) Qty: 30 0RF aspirin [Aspir-Low] 81 MG tablet,delayed release (DR/EC) 81 mg PO DAILY Discontinued atorvastatin [Lipitor] 10 MG tablet 20 mg PO DAILY Discharge Instructions Additional Instructions: Discontinue your Lipitor for now as it may be contributing to your elevated lipase level Try taking the morphine, you may take 1/2 to 1 tablet as needed every 6-8 hours as needed for pain You have an appointment on Thursday for reassessment and you will need a repeat lipase at this time, please call your doctors office tomorrow to determine the time of your Thursday appointment Increase your fluids, for hydration I recommend clear liquid diet is much as possible to bring down your lipase level, if you start having vomiting or abdominal pain, you should return immediately for reassessment In terms of her pain I suspect is secondary to lung cancer, I do not see an additional acute abnormality Do not take the hydrocodone and morphine within 8 to 12 hours of each other Referrals: Judith Osorio MD [Primary Care Provider] - Discharge Data Discharge Date/Time-TO BE ENTERED AT DEPARTURE: 06/18/23 16:22 Medical Decision Making 67-year-old female with recent diagnosis of lung cancer presents for evaluation of left scapular pain since having bronchoscopy with lung biopsy CTA chest shows evidence of lung cancer but no pathological fracture or other acute abnormality per radiology interpretation my review Diagnostic labs, CBC within normal limits, urinalysis with evidence of urinary tract infection, and lipase elevated, although patient does not endorse any nausea or vomiting or any abdominal pain or back pain consistent with acute pancreatitis, no evidence of pancreatic inflammation on CT scan or obvious evidence of obstruction Suspect this is medication related, will discontinue atorvastatin at this time, attempted to call patient's primary care physician but she unfortunately was unavailable, she has an appointment on Thursday to recheck her lipase and tells me she is able to drink lots of fluids, she has antiemetics for home Will treat patient with Keflex for urinary tract infection, encouraged urine hydration and discontinue atorvastatin at this time with repeat lipase on Thursday Patient otherwise appears well, she has having increased pain will place patient on morphine IR and replacement of hydrocodone temporarily and have PCP reassess Patient will continue follow-up with oncology and primary care physician Return precautions reviewed and patient expressed understanding Lungs clear to auscultation, no hypoxia, no acute distress throughout encounter, speaking in complete sentences, no peripheral edema, alert and oriented x 4 HPI General Date/Time Provider Initiated Documentation: 06/18/23 11:16 . HPI Narrative: 67-year-old female presents with new diagnosis of lung cancer with recent bronchoscopy with lung biopsy which reportedly had pain started approximately 2 days after to her left scapular region. Denies any significant change in shortness of breath. Denies any new strength or sensation changes to extremities, changes in bowel or bladder, saddle anesthesia. States her pain is exacerbated in her left thorax with deep breathing. Denies any fever or chills. Denies any hemoptysis. Denies any calf pain or swelling. Denies any headache Related Data Home Medications Medication Instructions Recorded Confirmed aspirin 81 mg tablet,delayed 81 mg PO DAILY 10/29/16 06/18/23 release (Aspir-Low) cholecalciferol (vitamin D3) 50 50 mcg PO DAILY 12/14/19 06/18/23 mcg (2,000 unit) capsule hydrocortisone acetate 25 mg 25 mg NC DAILY 12/14/19 06/18/23 rectal suppository (Anusol-HC) levothyroxine 50 mcg tablet 50 mcg PO DAILY 12/14/19 06/18/23 (Synthroid) nitroglycerin 0.4 mg sublingual 0.4 mg sublingual Q5M PRN 12/14/19 06/18/23 tablet (Nitrostat) omeprazole 40 mg capsule,delayed 40 mg PO DAILY 12/14/19 06/18/23 release triamcinolone acetonide 55 mcg 1 spray intranasal DAILY 12/14/19 06/18/23 nasal spray aerosol (Nasacort) alendronate 70 mg tablet 70 mg PO QWEEK 02/01/20 06/18/23 acetaminophen 325 mg tablet 650 mg (2 x 325 mg) PO Q6H PRN PRN 02/04/20 06/18/23 (Tylenol) #30 tabs docusate sodium 100 mg capsule 100 mg PO BID PRN constipation #60 02/04/20 06/18/23 (Colace) caps ibuprofen 600 mg tablet (IBU) 600 mg PO Q6H PRN Abdominal Pain 02/04/20 06/18/23 #30 tabs albuterol sulfate 90 mcg/actuation 2 puff inhalation Q6H PRN 10/09/22 06/18/23 aerosol inhaler (ProAir HFA) fluticasone propionate 220 1 puff inhalation BID 10/09/22 06/18/23 mcg/actuation HFA aerosol inhaler (Flovent HFA) gabapentin 100 mg capsule 100 mg PO DAILY 10/09/22 06/18/23 gabapentin 300 mg capsule 300 mg PO DAILY 10/09/22 06/18/23 sertraline 50 mg tablet (Zoloft) 50 mg PO DAILY 10/28/22 06/18/23 metoprolol tartrate 25 mg tablet 12.5 mg PO BID 01/26/23 06/18/23 morphine 15 mg immediate release 15 mg PO Q6H PRN #12 tabs 06/18/23 tablet Previous Rx's Medication Instructions Recorded acetaminophen 325 mg tablet 650 mg (2 x 325 mg) PO Q6H PRN PRN 02/04/20 (Tylenol) #30 tabs docusate sodium 100 mg capsule 100 mg PO BID PRN constipation #60 02/04/20 (Colace) caps ibuprofen 600 mg tablet (IBU) 600 mg PO Q6H PRN Abdominal Pain 02/04/20 #30 tabs morphine 15 mg immediate release 15 mg PO Q6H PRN #12 tabs 06/18/23 tablet Allergies Allergy/AdvReac Type Severity Reaction Status Date / Time dry air heat AdvReac Mild runny Uncoded 05/06/23 13:31 nose/sneezing General Stated Complaint: GenMedical JAMES: 3 PFSH All Active Problems (Updated 06/18/23 @ 15:33 by SANDI Solo) Acute pancreatitis (Acute) Lung cancer (Chronic) Restless legs (Acute) Hematuria (Acute) Medical History Abnormal EKG ADHD Allergic rhinitis Angina pectoris Anorexia Anxiety Bowel perforation Bright red blood per rectum CAD (coronary artery disease) Cardiology Chest pain Pt. states it turned out to be acid reflux Cough Depression Diverticulitis Family history of colon cancer GERD (gastroesophageal reflux disease) History of kidney stones History of recurrent UTI (urinary tract infection) History of rheumatic fever HPV (human papilloma virus) infection per pt. R/O came back negative Hyperlipidemia Hypertension Hypokalemia Hypothyroidism Inflammation of small intestine Juvenile rheumatoid arthritis Lung nodule Nocturnal hypoxia Osteoporosis PTSD (post-traumatic stress disorder) Pyogenic granuloma Right inguinal hernia Seasonal allergies Skin cancer of arm Sleep apnea Smoker Upper respiratory infection Surgical History History of total hip arthroplasty Right Hx of local excision of skin lesion S/P colonoscopy S/P panniculectomy S/P partial resection of colon S/P right inguinal hernia repair Family History Father Colon cancer Social History Smoking/Tobacco Use Status: Current every day Tobacco Type: cigarettes Smoking risk assessment performed?: Yes Alcohol Intake: never Drug use: Never Substance use type: does not use Do you feel safe at home: Yes Additional Social history: not in a relationship Course Vital Signs Vital signs: Vital Signs Temperature 35.9 C L 06/18/23 10:59 Pulse 106 H 06/18/23 10:59 Respiratory Rate 18 06/18/23 10:59 Blood Pressure 121/68 06/18/23 10:59 Pulse Oximetry 96 06/18/23 10:59 Temperature 35.9 C L 06/18/23 10:59 Temperature Source Tympanic 06/18/23 10:59 Pulse 106 H 06/18/23 10:59 Respiratory Rate 18 06/18/23 10:59 Respiratory Effort Normal 06/18/23 11:21 Blood Pressure 121/68 06/18/23 10:59 Blood Pressure Position Sitting 06/18/23 10:59 Pulse Oximetry 96 06/18/23 10:59 Oxygen Delivery Method Room Air 06/18/23 10:59 Oxygen Flow Rate 0 06/18/23 10:59 Pain Level 8 06/18/23 10:59 Comment back pain just below left shoulder blade 06/18/23 10:59
[2023-06-18 12:49] LABS: Abs Immature Grans 0.03 10^3/uL (0.0-0.06); Absolute Basophil Count 0.03 10^3/uL (0.0-0.2); Absolute Eosinophil Count 0.01 10^3/uL (0.0-0.7); Absolute Monocyte Count 0.86 10^3/uL (0.1-0.8); Absolute Neutrophil Count 5.56 10^3/uL (1.2-6.7); Basophils % 0.4; Eosinophils % 0.1; HCT 46.3 % (36.0-46.0); HGB 15.5 g/dL (11.2-15.7); Immature Grans % 0.4; Lymphocytes % 16.7; MCH 26.6 pg (27.0-33.0); MCHC 33.5 % (32.0-36.0); MCV 79 fL (80-95); MPV 8.6 fL (8.0-11.0); Neutrophils % 71.4; Platelet Count 262 10^3/uL (130-400); RBC 5.83 10^6/uL (3.93-5.22); RDW 14.2 % (11.7-14.6); WBC 7.79 10^3/uL (4.4-10.8)
[2023-06-18 13:07] LABS: ALT 20 U/L (14-59); AST 27 U/L (15-37); Albumin 3.5 g/dL (3.4-5.0); Alkaline Phosphatase 75 U/L (46-116); Anion Gap 5.3 mmol/L (3-11); BUN 14 mg/dL (7-18); Bilirubin, Total 0.4 mg/dL (0.2-1.0); CO2 31.7 mmol/L (21.0-32.0); CREATININE 0.9 mg/dL (0.55-1.02); Calcium 8.9 mg/dL (8.5-10.1); Chloride 98 mmol/L (98-107); Glucose 114 mg/dL (74-106); Lipase 358 U/L (16-77); Sodium 135 mmol/L (136-145); Total Protein 6.8 g/dL (6.4-8.2); Troponin I < 50 ng/L (<or=60)
[2023-06-18 13:23] LABS: Bilirubin Small (Negative); Blood Trace-intact (Negative); Clarity Sl Cloudy (Clear); Glucose Negative (Negative); Ketones Trace mg/dL (Negative); Leukocyte Esterase Trace (Negative); Nitrite Positive (Negative); Specific Gravity 1.025 (1.005-1.025); Urobilinogen 0.2 mg/dL (Up to 0.2)
[2023-06-18 13:31] LABS: Bacteria Many HPF (Negative); C & S Indicated? Yes; Casts Negative LPF (Negative); Crystals Negative HPF (Negative); Epithelial Cells Rare HPF (Negative); Mucus Trace (Negative)
[2023-06-18] MEDS: Omnipaque 350 MG/ML 500 ML BTL-Imaging package IJ (13:48)
[2023-06-18] MEDS: Normal Saline - Diluent 50 ML VIAL IJ (13:51)
[2023-06-18] MEDS: Normal Saline 1,000 ML 1000 ML IV (14:08)
[2023-06-18 14:09] VITALS: BP 129/78; PULSE 91; RESP 16; O2SAT 93
[2023-06-18 16:06] VITALS: BP 168/73; PULSE 108; O2SAT 90
== END 2023-06-18 16:22 | disposition home or self-care (01) ==
PROVIDERS: Emergency Provider Physician Assistant; PCP Family Medicine
DX: M54.6 Pain in thoracic spine (principal); C34.92 Malignant neoplasm of unspecified part of left bronchus or lung; I25.119 Atherosclerotic heart disease of native coronary artery with unspecified angina pectoris; E78.5 Hyperlipidemia, unspecified; I10 Essential (primary) hypertension; F17.210 Nicotine dependence, cigarettes, uncomplicated; Z79.899 Other long term (current) drug therapy
CPT/HCPCS: 71275; 74177; 80053; 83690; 87077; 93005; 99285; 81003; 81015; 84484; 85025; 87086; 87186; 93010; 99284

== ENCOUNTER 2023-06-22 12:06 | Outpatient (REF) | payer MEDICARE, SELFPAY ==
[2023-06-22 15:54] LABS: Lipase > 375 U/L (16-77)
== END 2023-06-22 12:07 | disposition home or self-care (01) ==
LOC: NCHCN 12:06
PROVIDERS: PCP Family Medicine; Visit Provider Nurse Practitioner Family
DX: R85.0 Abnormal level of enzymes in specimens from digestive organs and abdominal cavity (principal)
CPT/HCPCS: 83690

== ENCOUNTER → 2023-06-30 00:58 | Outpatient (CLI) | payer MEDICARE, SELFPAY ==
--- NOTE | 2023-06-30 | DI.MRI_ITS ---
Exam(s) MR BRAIN WO/W EXAM: MR BRAIN WO/W CLINICAL HISTORY: LUNG MASS R91.8 POSSIBLE ADRENAL METS TECHNIQUE: Multiplanar multisequence MRI of the brain was performed. Both noninfused and contrast i nfused sequences were performed. IV Contrast injected was cc Dotarem. COMPARISON: No exams were available for comparison FINDINGS: CEREBRAL PARENCHYMA: There are multiple ring-enhancing lesions in the brain, both supra and infra tentorial. These are co nsistent with metastatic ring-enhancing lesions, given the history here. In the posterior fossa there are 2 lesions in the left cerebellar hemisphere. The largest measures 9 mm. There are ring-enhancing lesions in the anterior left frontal lobe measuring 1.1 x 0.7 cm. There are 3 enhancing lesions in the right temporal lobe, these are surrounded by mild edema. No associated hemorrhage. No shift of midline structures. No extra-axial fluid collections. Ventricles are not enl arged or shifted. In addition to the above there are multiple nonenhancing FLAIR bright signal abnormalities in the per iventricular white matter consistent with chronic small vessel ischemic changes. SWI: No microhemorrhages evident. There are no ring enhancing lesions in the brain. There is no abnormal meningeal enhancement. PITUITARY GLAND: No mass nor parasellar abnormality. No obvious abnormality in the cavernous sinuses. FLOW VOIDS: The expected flow void are noted. No evidence of obvious aneurysm nor obvious vascular ma lformation. PARANASAL SINUSES: The visualized paranasal sinuses appear unremarkable. ORBITS: No obvious abnormal findings. IMPRESSION: 1. No ring enhancing metastatic lesions in the brain as described above, both in the posterior fossa and above the tentorium. These are associated with only mild surrounding edema. No prominent mass eff ect at this time 2. There also nonenhancing FLAIR bright foci of periventricular signal abnormality consistent with ch ronic small vessel disease. DATA REPOSITORY:
[2023-06-30] MEDS: Normal Saline Flush 10 ML SYR IVP (14:34)
[2023-06-30] MEDS: Gadoterate meglumine 20 ML SYRINGE 11 ML IVP (14:35)
== END ==
PROVIDERS: PCP Family Medicine; Visit Provider Family Medicine
DX: R91.8 Other nonspecific abnormal finding of lung field (principal)
CPT/HCPCS: 70553

== ENCOUNTER 2023-07-14 20:46 | Emergency (ER) | payer MEDICARE, SELFPAY ==
--- NOTE | 2023-07-14 20:45 | RT.EKG_ITS ---
APPROVED REPORT Exam: Resting ECG Reason for Exam: shortness of breath Patient Location: E HR:60 bpm ECG Measurements Heart Rate 60 AXIS RI 132 P 74 QRSd 76 QRS -79 QT 380 T 73 QTc 379 Conclusion Sinus rhythm...normal P axis, V-rate 60- 99 Left anterior fascicular block...axis(240,-40), init forces inf Anterior infarct, old...Q >40mS, abnormal ST-T, V2-V5 ST elevation, consider inferior injury...ST >0.08mV, II III aVF
--- NOTE | 2023-07-14 20:45 | DI.CT_ITS ---
Exam(s) CT CHEST PE CTA EXAM: CT CHEST PE CTA CLINICAL HISTORY: lung cancer, dyspnea and chest pain. TECHNIQUE: Imaging Protocol: Axial CT angiography was performed with multi-slice acquisition and mu lti-planar reconstructions as well as axial, coronal and sagittal MIP reconstructions. CONTRAST MATERIAL: Intravenous: Omnipaque 350 Contrast volume: 52 ml COMPARISON: CT CT CHEST LUNG CANCER SCREEN from 05/28/[address] THORACIC LUMBAR SPINE REC from 06/18/2023 FINDINGS: Pulmonary Arteries: No evidence of filling defect to suggest pulmonary emboli. Mediastinum and Lachelle: No significant change left para-aortic, left hilar mass/adenopathy. Enlarged s ubcarinal lymph nodes increased from prior. Pulmonary parenchyma: Interval worsening of mass, now with complete atelectasis of the left lower lob e with occlusion of the bronchi. There is hyperaeration of the left upper lobe. Stable nodular dens ities noted in right lower lobe. Pleura: No effusion or pneumothorax. Heart: The heart is not dilated. Moderate coronary artery calcifications are seen. Mitral annular calcifications. Aorta: Thoracic aorta non-dilated. Atherosclerotic changes. No dissection. Upper abdomen: Bilateral adrenal masses, roughly unchanged. Low-density area seen in the medial rig ht liver could represent metastatic disease. Bones: Unremarkable for age. Tubes, Catheters, and Lines: None Soft tissues: Unremarkable. IMPRESSION: No evidence of pulmonary embolism. Right perihilar mass, now causing complete atelectasis of the left lower lobe. Bilateral drain along metastases roughly unchanged. Low-density area in medial liver could also repr esent a metastatic focus. RADIATION DOSE DELIVERED: Total DLP DATA REPOSITORY: All CT scans at this facility are submitted to the National Radiology Data Registry (NRDR) Dose Index Registry (DIR) with the [employer] (ACR). RADIATION OPTIMIZATION: All CT scans at this facility use at least one of these dose optimization te chniques: automated exposure control; mA and/or kV adjustment per patient size (includes targeted exa ms where dose is matched to clinical indication); or iterative reconstruction.
[2023-07-14 20:47] VITALS: BP 214/161; PULSE 66; RESP 18; TEMP 37.1; O2SAT 94
--- NOTE | 2023-07-14 20:59 | W.ED.GENAD ---
HPI General Stated Complaint: RespSymp Mode of arrival: EMS. JAMES: 3 Date/Time Provider Initiated Documentation: 07/14/23 20:51. Limitations to Documentation: no limitations. Information obtained by: patient. History of Present Illness chest pain moderate aching chest reports no radiation day(s) (1) constant No relieving factors improve symptom(s), No exacerbating factors reported no other symptoms.; denies fever/chills and weakness none Related Data Home Medications Medication Instructions Recorded Confirmed aspirin 81 mg tablet,delayed 81 mg PO DAILY 10/29/16 07/14/23 release (Aspir-Low) cholecalciferol (vitamin D3) 50 50 mcg PO DAILY 12/14/19 07/14/23 mcg (2,000 unit) capsule levothyroxine 50 mcg tablet 50 mcg PO DAILY 12/14/19 07/14/23 (Synthroid) nitroglycerin 0.4 mg sublingual 0.4 mg sublingual Q5M PRN 12/14/19 07/14/23 tablet (Nitrostat) omeprazole 40 mg capsule,delayed 40 mg PO DAILY 12/14/19 07/14/23 release triamcinolone acetonide 55 mcg 1 spray intranasal DAILY 12/14/19 07/14/23 nasal spray aerosol (Nasacort) alendronate 70 mg tablet 70 mg PO QWEEK 02/01/20 07/14/23 acetaminophen 325 mg tablet 650 mg (2 x 325 mg) PO Q6H PRN PRN 02/04/20 07/14/23 (Tylenol) #30 tabs docusate sodium 100 mg capsule 100 mg PO BID PRN constipation #60 02/04/20 07/14/23 (Colace) caps ibuprofen 600 mg tablet (IBU) 600 mg PO Q6H PRN Abdominal Pain 02/04/20 07/14/23 #30 tabs albuterol sulfate 90 mcg/actuation 2 puff inhalation Q6H PRN 10/09/22 07/14/23 aerosol inhaler (ProAir HFA) gabapentin 300 mg capsule 300 mg PO DAILY 10/09/22 07/14/23 sertraline 50 mg tablet (Zoloft) 50 mg PO DAILY 10/28/22 07/14/23 metoprolol tartrate 25 mg tablet 12.5 mg PO BID 07/17/23 01/02/24 amoxicillin 875 mg-potassium 1 tab PO Q12H 07/14/23 07/14/23 clavulanate 125 mg tablet hydrocodone 5 mg-acetaminophen 325 1 tab PO BID 07/14/23 07/14/23 mg tablet oxycodone 10 mg tablet,crush 10 mg PO BID 07/14/23 07/14/23 resistant,extended release 12 hr (OxyContin) Previous Rx's Medication Instructions Recorded acetaminophen 325 mg tablet 650 mg (2 x 325 mg) PO Q6H PRN PRN 02/04/20 (Tylenol) #30 tabs docusate sodium 100 mg capsule 100 mg PO BID PRN constipation #60 02/04/20 (Colace) caps ibuprofen 600 mg tablet (IBU) 600 mg PO Q6H PRN Abdominal Pain 02/04/20 #30 tabs Allergies Allergy/AdvReac Type Severity Reaction Status Date / Time dry air heat AdvReac Mild runny Uncoded 07/14/23 20:51 nose/sneezing Review of Systems All systems reviewed & are unremarkable except as noted in HPI and below Constitutional Constitutional: Denies chills, Denies fever(s) and Denies weakness Cardiovascular Cardiovascular: Reports chest pain and Reports dyspnea Respiratory Respiratory: Denies cough and Reports dyspnea Gastrointestinal Gastrointestinal: Denies abdominal pain, Denies nausea and Denies vomiting Genitourinary Genitourinary: Denies dysuria Musculoskeletal Musculoskeletal: Denies joint swelling Integumentary/Breasts Skin/Breast: Denies rash Neurologic Neurologic: Denies weakness PFSH All Active Problems (Updated 07/14/23 @ 22:02 by Pavel Nino MD) Chest pain (Acute) Acute pancreatitis (Acute) Lung cancer (Chronic) Restless legs (Acute) Hematuria (Acute) Medical History Abnormal EKG ADHD Allergic rhinitis Angina pectoris Anorexia Anxiety Bowel perforation Bright red blood per rectum CAD (coronary artery disease) Cardiology Chest pain Pt. states it turned out to be acid reflux Cough Depression Diverticulitis Family history of colon cancer GERD (gastroesophageal reflux disease) History of kidney stones History of recurrent UTI (urinary tract infection) History of rheumatic fever HPV (human papilloma virus) infection per pt. R/O came back negative Hyperlipidemia Hypertension Hypokalemia Hypothyroidism Inflammation of small intestine Juvenile rheumatoid arthritis Lung nodule Nocturnal hypoxia Osteoporosis PTSD (post-traumatic stress disorder) Pyogenic granuloma Right inguinal hernia Seasonal allergies Skin cancer of arm Sleep apnea Smoker Upper respiratory infection Surgical History History of total hip arthroplasty Right Hx of local excision of skin lesion S/P colonoscopy S/P panniculectomy S/P partial resection of colon S/P right inguinal hernia repair Family History Father Colon cancer Social History Smoking/Tobacco Use Status: Current every day Tobacco Type: cigarettes Smoking risk assessment performed?: Yes Alcohol Intake: never Drug use: Never Substance use type: does not use Housing: house Do you feel safe at home: Yes Additional Social history: daughter lives with patient Exam Const General: no acute distress and anxious Orientation: alert HENMT Head: normal to inspection Ears: external ears normal General nose exam: external nose normal Mouth: moist mucous membranes Eyes General: appearance normal, both eyes and all related structures Neck Neck: normal visual inspection Resp Effort & Inspection: normal respiratory effort and able to speak in complete sentences Auscultation: clear to auscultation bilaterally Cardio Jugular venous pressure: no JVD Rate: regular rate Heart Sounds: no murmurs GI Palpation: soft and nontender Skin General skin exam: no rashes or lesions noted Neuro General: patient alert and patient oriented x3 Extrem General: normal to inspection Psych Mental Status: mental status grossly normal Course Vital Signs Vital signs: Vital Signs Temperature 37.1 C 07/14/23 20:47 Pulse 66 07/14/23 20:47 Respiratory Rate 18 07/14/23 20:47 Blood Pressure 214/161 H 07/14/23 20:47 Pulse Oximetry 94 07/14/23 20:47 Temperature 37.1 C 07/14/23 20:47 Temperature Source Tympanic 07/14/23 20:47 Pulse 66 07/14/23 20:47 Respiratory Rate 18 07/14/23 20:47 Blood Pressure 214/161 H 07/14/23 20:47 Pulse Oximetry 94 07/14/23 20:47 Oxygen Delivery Method Room Air 07/14/23 20:47 Oxygen Flow Rate 0 07/14/23 20:47 Medical Decision Making 67 yo female with hx of lung cancer who states she is starting chemotherapy tomorrow comes in with ems with cc of all day having chest achiness. She denies fevers, has had some dyspnea intermittently. She arrives caox4 speaking in full sentences laughing in no distress. She does appear mildly anxious. She is hypertensive, normal lung sounds, no murmurs, no jvd. Suspect her pain is related to her cancer but will exclude other causes of her pain with ekg/troponin and obtain cta to evaluate for pe CTA shows no PE, has left hilar mass that is known. She is stable, bp now 160/90 and no longer having pain. She has had symptoms for over 3 hours so do not feel delta troponin indicated. Will have her f/u with her oncology team and return precautions given Differential Diagnosis Differential Diagnosis: cancer related pain, nstemi, pe Medical Records Medical records reviewed: Yes I reviewed the patient's medical records. Imaging Data Radiologic Study: Attestation: I personally reviewed and interpreted this imaging study as follows: Imaging: CT Scan Radiologist's impression: IMPRESSION: 1. No evidence for pulmonary embolus. 2. Left hilar mass with occlusion of the left lower lobe bronchus and dense left lower lobe atelectasis. These changes appear worse compared to prior exam. 3. Mediastinal and significant left hilar adenopathy. Previously seen right nodular opacities are stable. 4. Bilateral adrenal masses again of concern for metastatic disease. Lab Data Lab results reviewed: Yes I reviewed the patient's lab results. ECG Data Attestation: I personally reviewed and interpreted this ECG (s) as follows: Prior ECG tracings: available for review Interpretation: sinus rate of 60 pr 132 no stemi Quality:SDOH Health Related Social Needs: No Data to Display Discharge Plan Disposition Patient Disposition: Home Condition: Stable Discharge Details Clinical Impression: Chest pain Primary Care Provider: Judith Osorio V ED Provider: Pavel Nino Home Meds and New Rx's Prescriptions: Continued nitroglycerin [Nitrostat] 0.4 mg tablet, sublingual 0.4 mg SL Q5M PRN Rx Instructions: do not exceed 3 doses per episode omeprazole 40 mg capsule,delayed release(DR/EC) 40 mg PO DAILY levothyroxine [Synthroid] 50 mcg tablet 50 mcg PO DAILY triamcinolone acetonide [Nasacort] 55 mcg aerosol,spray 1 spray BRYCE DAILY Rx Instructions: administer into each nostril cholecalciferol (vitamin D3) 50 mcg (2,000 unit) capsule 50 mcg PO DAILY gabapentin 300 mg capsule 300 mg PO DAILY albuterol sulfate [ProAir HFA] 90 mcg/actuation HFA aerosol inhaler 2 puff inhalation Q6H PRN sertraline [Zoloft] 50 mg tablet 50 mg PO DAILY metoprolol tartrate 25 mg tablet 12.5 mg PO BID alendronate 70 mg tablet 70 mg PO QWEEK acetaminophen [Tylenol] 325 mg Tablet 650 mg PO Q6H PRN PRNQty: 30 0RF docusate sodium [Colace] 100 mg Capsule 100 mg PO BID PRN (Reason: constipation) Qty: 60 0RF ibuprofen [IBU] 600 mg Tablet 600 mg PO Q6H PRN (Reason: Abdominal Pain) Qty: 30 0RF amoxicillin-pot clavulanate 875-125 mg tablet 1 tab PO Q12H Patient Comments: TAKE ONE TABLET BY MOUTH EVERY 12 HOURS FOR 5 DAYS hydrocodone-acetaminophen 5-325 mg tablet 1 tab PO BID Patient Comments: TAKE TWO TABLETS BY MOUTH TWICE A DAY NEEDED oxycodone [OxyContin] 10 mg tablet,oral only,ext.rel.12 hr 10 mg PO BID Patient Comments: TAKE ONE TABLET BY MOUTH EVERY 12 HOURS aspirin [Aspir-Low] 81 MG tablet,delayed release (DR/EC) 81 mg PO DAILY Discharge Instructions Additional Instructions: Your cat scan did not show any new findings and your blood work did not show concerning findings follow up with your oncologist as scheduled you can use the fentanyl patch and if 3 of your oxycodone isn't effective you can try taking 4 if you feel more ill, have severe worsening pain or difficulty breathing return to the emergency department
[2023-07-14 21:00] VITALS: BP 214/161; PULSE 66; RESP 18; TEMP 37.1; O2SAT 94
[2023-07-14 21:04] LABS: Source Nasal/Nares
[2023-07-14 21:12] LABS: Abs Immature Grans 0.03 10^3/uL (0.0-0.06); Absolute Basophil Count 0.02 10^3/uL (0.0-0.2); Absolute Lymphocyte Count 1.59 10^3/uL (1.2-3.4); Absolute Monocyte Count 0.85 10^3/uL (0.1-0.8); Absolute Neutrophil Count 6.74 10^3/uL (1.2-6.7); Basophils % 0.2; HGB 15.5 g/dL (11.2-15.7); Immature Grans % 0.3; Lymphocytes % 17.2; MCH 27.1 pg (27.0-33.0); MCHC 33.7 % (32.0-36.0); MCV 80 fL (80-95); MPV 9.1 fL (8.0-11.0); Monocytes % 9.2; Neutrophils % 73.1; Platelet Count 329 10^3/uL (130-400); RBC 5.73 10^6/uL (3.93-5.22); RDW 14.5 % (11.7-14.6); RDW-SD 42.2 fL; WBC 9.23 10^3/uL (4.4-10.8)
[2023-07-14] MEDS: Normal Saline - Diluent 50 ML VIAL IJ (21:13)
[2023-07-14] MEDS: Normal Saline Flush 10 ML SYR IVP (21:14)
[2023-07-14] MEDS: Omnipaque 350 MG/ML 100 ML BTL IJ (21:15)
[2023-07-14 21:26] LABS: INR 1.1 (0.9-1.1); PTT Activated 25.8 sec (23.6-32.8); Prothrombin Time 11.2 sec (9.1-11.1)
[2023-07-14 21:35] LABS: ALT 20 U/L (14-59); AST 17 U/L (15-37); Albumin 3.7 g/dL (3.4-5.0); Alkaline Phosphatase 73 U/L (46-116); BUN 15 mg/dL (7-18); Bilirubin, Total 0.5 mg/dL (0.2-1.0); CREATININE 0.6 mg/dL (0.55-1.02); Calcium 9.3 mg/dL (8.5-10.1); Chloride 98 mmol/L (98-107); Glucose 135 mg/dL (74-106); Magnesium 1.8 mg/dL (1.8-2.4); NT-proBNP 606 pg/mL (<300); Sodium 134 mmol/L (136-145); Total Protein 7.1 g/dL (6.4-8.2); Troponin I < 50 ng/L (<or=60)
[2023-07-14 21:37] LABS: COVID-19 PCR Negative (Negative)
--- NOTE | 2023-07-14 21:49 | DI.VRAD_ITS ---
PROCEDURE INFORMATION: Exam: CTA Chest With Contrast Exam date and time: 07/14/2023 9:19 PM Age: 67 years old Clinical indication: Other: Lung cancer, dyspnea and chest pain TECHNIQUE: Imaging protocol: Computed tomographic angiography of the chest with contrast. Exam focused on the arteries. 3D rendering (Not supervised by radiologist): MIP and/or 3D reconstructed images were created by the technologist. Radiation optimization: All CT scans at this facility use at least one of these dose optimization techniques: automated exposure control; mA and/or kV adjustment per patient size (includes targeted exams where dose is matched to clinical indication); or iterative reconstruction. Contrast material: OMNI 350; Contrast volume: 52 ml; Contrast route: INTRAVENOUS (IV); COMPARISON: CT CHEST PE ABD PELVIS W 06/18/2023 1:54 PM FINDINGS: Pulmonary arteries: Normal. No pulmonary emboli. Aorta: Unremarkable. No aortic aneurysm. No aortic dissection. Lungs: There is compensatory hyperaeration of the left upper lobe. There is an ill-defined hazy nodular density 9 mm series 5, image 26 in the right lower lobe. This is unchanged from prior exam. Adjacent to the major fissure at the right middle lobe level a 6 mm nodule is unchanged. Pleural spaces: See Lungs finding. Heart: Unremarkable. No cardiomegaly. No pericardial effusion. Coronary arteries: Coronary artery calcifications noted. Lymph nodes: There is moderate mediastinal and significant left hilar adenopathy. There is circumferential narrowing of the left upper lobe bronchus with occlusion of the left lower lobe bronchus. There is dense left lower lobe atelectasis. This process has progressed compared to previous study. There is a large subcarinal lymph node 2 cm. Adrenal glands: There are prominent bilateral adrenal masses of concern for metastases. The right-sided focus measures 2.2 cm in the left 2.5 cm. Bones/joints: Unremarkable. No acute fracture. Soft tissues: Unremarkable. IMPRESSION: 1. No evidence for pulmonary embolus. 2. Left hilar mass with occlusion of the left lower lobe bronchus and dense left lower lobe atelectasis. These changes appear worse compared to prior exam. 3. Mediastinal and significant left hilar adenopathy. Previously seen right nodular opacities are stable. 4. Bilateral adrenal masses again of concern for metastatic disease. Dictated and Authenticated by: Sharmila Bennett MD. Ordering:LOW Zhao MD
[2023-07-14] MEDS: HYDROmorphone 2 MG/ML SYR 1 MG IVP (21:50)
--- NOTE | 2023-07-16 13:00 | NUR.NOTE ---
Nursing Note: Accessed pt chart to determine number of EKG orders. Duplicate order cancelled, no EKG attached to it.
== END 2023-07-14 22:17 | disposition home or self-care (01) ==
PROVIDERS: Emergency Provider Emergency Medicine; PCP Family Medicine
DX: R07.9 Chest pain, unspecified (principal); C34.92 Malignant neoplasm of unspecified part of left bronchus or lung
CPT/HCPCS: 71275; 80053; 87635; 93005; 96374; 99285; 83735; 83880; 84484; 85025; 85610; 85730; 93010; 99284; J1170; J3490

== ENCOUNTER 2023-07-27 05:18 | Outpatient (CLI) | payer MEDICARE, SELFPAY ==
[2023-07-27 10:13] LABS: HCT 41.6 % (36.0-46.0); HGB 13.9 g/dL (11.2-15.7); MCH 27.3 pg (27.0-33.0); MCHC 33.4 % (32.0-36.0); MCV 82 fL (80-95); MPV 8.8 fL (8.0-11.0); Nucleated RBC 0.1 % (0.0-0.3); Platelet Count 133 10^3/uL (130-400); RBC 5.09 10^6/uL (3.93-5.22); RDW 15.2 % (11.7-14.6); RDW-SD 44.5 fL
[2023-07-27 10:27] LABS: ALT 18 U/L (14-59); AST 18 U/L (15-37); Albumin 3.3 g/dL (3.4-5.0); Alkaline Phosphatase 121 U/L (46-116); Anion Gap 6.3 mmol/L (3-11); BUN 12 mg/dL (7-18); Bilirubin, Total 0.4 mg/dL (0.2-1.0); CO2 30.7 mmol/L (21.0-32.0); CREATININE 0.7 mg/dL (0.55-1.02); Calcium 8.2 mg/dL (8.5-10.1); Chloride 91 mmol/L (98-107); Estimated GFR 93.56 (mL/min/1.73m2); Glucose 116 mg/dL (74-106); Magnesium 1.5 mg/dL (1.8-2.4); Sodium 128 mmol/L (136-145); Total Protein 6.1 g/dL (6.4-8.2)
[2023-07-27 10:33] LABS: Absolute Lymphocyte Count 7.24 10^3/uL (1.2-3.4); Absolute Monocyte Count 1.45 10^3/uL (0.1-0.8); Bands % 9
[2023-07-27 10:34] LABS: Metamyelocytes % 1; Myelocytes % 2
[2023-07-27 10:35] LABS: Diff Comment Manual Differential; RBC Morphology Normal
[2023-07-27 10:37] LABS: WBC 28.96 10^3/uL (4.4-10.8)
== END 2023-07-27 05:19 | disposition home or self-care (01) ==
LOC: LBO 05:18
PROVIDERS: PCP Family Medicine; Visit Provider Internal Medicine Medical Oncology
DX: C79.51 Secondary malignant neoplasm of bone (principal)
CPT/HCPCS: 36415; 80053; 83735; 85025

== ENCOUNTER 2023-08-05 02:46 | Outpatient (CLI) | payer MEDICARE, SELFPAY ==
[2023-08-05 08:10] LABS: HCT 38.1 % (36.0-46.0); HGB 13.4 g/dL (11.2-15.7); MCH 27.6 pg (27.0-33.0); MCHC 35.2 % (32.0-36.0); MCV 79 fL (80-95); MPV 8.2 fL (8.0-11.0); Platelet Count 491 10^3/uL (130-400); RBC 4.85 10^6/uL (3.93-5.22); RDW-SD 42.8 fL
[2023-08-05 08:29] LABS: ALT 27 U/L (14-59); AST 20 U/L (15-37); Albumin 3.6 g/dL (3.4-5.0); Alkaline Phosphatase 132 U/L (46-116); Anion Gap 7.4 mmol/L (3-11); BUN 13 mg/dL (7-18); Bilirubin, Total 0.3 mg/dL (0.2-1.0); CO2 31.6 mmol/L (21.0-32.0); CREATININE 0.7 mg/dL (0.55-1.02); Chloride 85 mmol/L (98-107); Estimated GFR 93.56 (mL/min/1.73m2); Glucose 110 mg/dL (74-106); Magnesium 1.7 mg/dL (1.8-2.4); Total Protein 6.7 g/dL (6.4-8.2); WBC 73.22 10^3/uL (4.4-10.8)
[2023-08-05 08:30] LABS: Sodium 124 mmol/L (136-145)
[2023-08-05 08:34] LABS: Absolute Lymphocyte Count 6.59 10^3/uL (1.2-3.4); Absolute Monocyte Count 8.05 10^3/uL (0.1-0.8); Absolute Neutrophil Count 58.58 10^3/uL (1.2-6.7); Atypical Lymphocytes % 1; Bands % 4; Diff Comment Manual Differential; RBC Morphology Normal
== END 2023-08-05 02:47 | disposition home or self-care (01) ==
LOC: LBO 02:46
PROVIDERS: PCP Family Medicine; Visit Provider Internal Medicine Medical Oncology
DX: C79.51 Secondary malignant neoplasm of bone (principal); C79.71 Secondary malignant neoplasm of right adrenal gland; C79.72 Secondary malignant neoplasm of left adrenal gland
CPT/HCPCS: 36415; 80053; 83735; 85025

== ENCOUNTER 2023-08-10 11:09 | Inpatient (IN) | payer MEDICARE, SELFPAY ==
[2023-08-10 11:14] VITALS: BP 118/84; PULSE 85; RESP 17; TEMP 36.4; O2SAT 99
[2023-08-10 11:41] LABS: Bilirubin Negative (Negative); Blood Trace-intact (Negative); Clarity Clear (Clear); Glucose Negative (Negative); Ketones Negative (Negative); Leukocyte Esterase Trace (Negative); Nitrite Negative (Negative); Specific Gravity 1.015 (1.005-1.025); Urobilinogen 0.2 mg/dL (Up to 0.2)
[2023-08-10 12:00] LABS: Epithelial Cells Rare HPF (Negative); RBC 0-2 HPF (0-2); WBC 0-2 HPF (0-5)
[2023-08-10 12:01] LABS: Bacteria Few HPF (Negative); C & S Indicated? No; Casts Negative LPF (Negative); Crystals Negative HPF (Negative); Mucus Trace (Negative)
[2023-08-10 12:14] VITALS: BP 123/73; PULSE 69; RESP 18; TEMP 37; O2SAT 96
--- NOTE | 2023-08-10 12:34 | W.ED.GENAD ---
HPI General Date/Time Provider Initiated Documentation: 08/10/23 11:10. HPI Narrative: 67 year-old female presents to ED today by POV/ambulating with her daughter with a chief complaint of low urine output without dysuria with onset noted after chemo last week- sees [facility] Oncology, is known to [facility] palliative care. Is undergoing chemo to slow down her small-cell lung CA. Quality described as not overly painful, denies flank pain, no radiation to dark urine, shortness of breath, cough, abdominal pain. Severity is described as unable to quantify. Palliating factors include nothing specific. Provoking factors include patient endorses poor PO intake, never drinking water, only drinking coffee. Patient not anticoagulated. Related Data Home Medications Medication Instructions Recorded Confirmed aspirin 81 mg tablet,delayed 81 mg PO DAILY 10/29/16 08/10/23 release (Aspir-Low) levothyroxine 50 mcg tablet 50 mcg PO DAILY 12/14/19 08/10/23 (Synthroid) nitroglycerin 0.4 mg sublingual 0.4 mg sublingual Q5M PRN 12/14/19 08/10/23 tablet (Nitrostat) omeprazole 40 mg capsule,delayed 40 mg PO DAILY 12/14/19 08/10/23 release triamcinolone acetonide 55 mcg 1 spray intranasal DAILY 12/14/19 08/10/23 nasal spray aerosol (Nasacort) acetaminophen 325 mg tablet 650 mg (2 x 325 mg) PO Q6H PRN PRN 02/04/20 08/10/23 (Tylenol) #30 tabs docusate sodium 100 mg capsule 100 mg PO BID PRN constipation #60 02/04/20 08/10/23 (Colace) caps ibuprofen 600 mg tablet (IBU) 600 mg PO Q6H PRN Abdominal Pain 02/04/20 08/10/23 #30 tabs albuterol sulfate 90 mcg/actuation 2 puff inhalation Q6H PRN 10/09/22 08/10/23 aerosol inhaler (ProAir HFA) gabapentin 300 mg capsule 300 mg PO DAILY 10/09/22 08/10/23 sertraline 50 mg tablet (Zoloft) 50 mg PO DAILY 10/28/22 08/10/23 metoprolol tartrate 25 mg tablet 12.5 mg PO BID 01/26/23 08/10/23 dexamethasone 4 mg tablet 4 mg PO DAILY #1 tab 07/22/23 08/10/23 mirtazapine 7.5 mg tablet 7.5 mg PO QHS #90 tabs 07/22/23 08/10/23 nystatin 100,000 unit/mL oral 5 ml PO TID PRN thrush #200 mL 07/22/23 08/10/23 suspension cephalexin 500 mg capsule 500 mg PO QID #20 caps 07/29/23 08/10/23 oxycodone 10 mg tablet 20 mg (2 x 10 mg) PO Q4H PRN pain 07/31/23 08/10/23 #60 tabs morphine 15 mg tablet,extended 15 mg PO Q8H #90 tabs 08/10/23 08/10/23 release Previous Rx's Medication Instructions Recorded acetaminophen 325 mg tablet 650 mg (2 x 325 mg) PO Q6H PRN PRN 02/04/20 (Tylenol) #30 tabs docusate sodium 100 mg capsule 100 mg PO BID PRN constipation #60 02/04/20 (Colace) caps ibuprofen 600 mg tablet (IBU) 600 mg PO Q6H PRN Abdominal Pain 02/04/20 #30 tabs dexamethasone 4 mg tablet 4 mg PO DAILY #1 tab 07/22/23 mirtazapine 7.5 mg tablet 7.5 mg PO QHS #90 tabs 07/22/23 nystatin 100,000 unit/mL oral 5 ml PO TID PRN thrush #200 mL 07/22/23 suspension cephalexin 500 mg capsule 500 mg PO QID #20 caps 07/29/23 oxycodone 10 mg tablet 20 mg (2 x 10 mg) PO Q4H PRN pain 07/31/23 #60 tabs morphine 15 mg tablet,extended 15 mg PO Q8H #90 tabs 08/10/23 release Allergies Allergy/AdvReac Type Severity Reaction Status Date / Time dry air heat AdvReac Mild runny Uncoded 07/29/23 19:20 nose/sneezing General Stated Complaint: Urinary JAMES: 3 Review of Systems All systems reviewed & are unremarkable except as noted in HPI and below Exam Narrative Exam Narrative: GENERAL APPEARANCE: Well-nourished, non-toxic, awake and alert, atraumatic, no acute distress. SKIN: Warm, pink, dry, intact, without rashes/lesions/ulcerations. HEAD: Normocephalic, atraumatic, normal hair distribution for gender/age. EYES: Pupils PERRLA, EOMs intact without nystagmus, normal conjunctiva, no exudates on lids/lashes. ENT: Nares patent, no circumoral cyanosis, no facial swelling NECK: Supple, trachea midline, painless cervical ROM. LUNGS/CHEST: Lungs CTA bilaterally- no rhonchi/rales/wheezes diffusely, non-labored respirations, normal A/P diameter, symmetrical expansion, no chest wall deformity HEART (CV/PV): Regular rate and rhythm without murmur, no peripheral edema, no JVD. ABDOMEN: Soft, non-distended, no guarding, no overt tenderness, palpation to suprapubic area does show distention/firmness to bladder, no CVA tenderness to percussion bilaterally MSK: Normal ROM, no swelling/deformity to bilateral UEs or LEs, moving all extremities without weakness, no cyanosis, spine midline without tenderness, normal curvature. NEURO: Mental Status AAOx4 - alert to person, place, time, events No facial droop, no forehead involvement. Motor: No focal weakness - strength 5/5 in bilateral UEs and LEs, proximal and distal, symmetric. Sensory: sensation intact to light touch globally. Gait NT. PSYCH: euthymic, cooperative, pleasant, appropriate speech Course Vital Signs Vital signs: Vital Signs Temperature 36.4 C 08/10/23 11:14 Pulse 85 08/10/23 11:14 Respiratory Rate 17 08/10/23 11:14 Blood Pressure 118/84 08/10/23 11:14 Pulse Oximetry 99 08/10/23 11:14 Temperature 37.0 C 08/10/23 12:14 Temperature Source Oral 08/10/23 12:14 Pulse 69 08/10/23 12:14 Respiratory Rate 18 08/10/23 12:14 Respiratory Effort Normal 08/10/23 12:14 Blood Pressure 123/73 08/10/23 12:14 Blood Pressure Position Sitting 08/10/23 11:14 Pulse Oximetry 96 08/10/23 12:14 Oxygen Delivery Method Room Air 08/10/23 11:14 Oxygen Flow Rate 0 08/10/23 11:14 Pain Level 0 08/10/23 11:14 Lab/Test Results Lab/Test Results: Laboratory Tests Range/Units 08/10/23 11:32 Urine Color (Yellow) Yellow Urine Clarity (Clear) Clear Urine pH (5-8) 6.0 Ur Specific [place] (1.005-1.025) 1.015 Urine Protein (Negative) mg/dL Negative Urine Ketones (Negative) mg/dL Negative Urine Blood (Negative) Trace-intact H Urine Nitrite (Negative) Negative Urine Bilirubin (Negative) Negative Urine Urobilinogen (Up to 0.2) mg/dL 0.2 Ur Leukocyte Esterase (Negative) Trace H Urine RBC (0-2) HPF 0-2 Urine WBC (0-5) HPF 0-2 Ur Epithelial Cells (Negative) HPF Rare Urine Crystals (Negative) HPF Negative Urine Bacteria (Negative) HPF Few Urine Casts (Negative) LPF Negative Urine Mucus (Negative) Trace Ur Culture Indicated? No Urine Glucose (Negative) mg/dL Negative Medical Decision Making This dictation utilizes [id number]-[id number] dictation software and may contain unedited grammatical errors. 67 y/o F presents to ED today with a chief complaint of low urine output, had chemo at [facility] last week, denies dysuria. [place]mas has small-cell lung CA, has seen palliative care at [facility] and [facility], goal is to prolong quality of life so participates in chemo. Patients' medical history: History of renal stones and UTI, hypertension, hyperlipidemia, nocturnal hypoxia, coronary artery disease, small cell lung cancer stage IV. Family and social history: past smoking history. Pertinent exam findings / vital signs include firmness to bladder palpation, otherwise benign abdomen, no respiratory distress, neurologically intact. Differential / pathologies of concern include UTI, Dehydration, Renal Stones, Obstructive Uropathy. Diagnostic studies of: -CBC, CMP - Bladder scan, UA -bladder scan shows 88mL -CBC shows hemoconcentration -CMP shows Na+ 117, likely due to poor intake -UA no UTI Interventions of: -slow IV fluids, admit to [facility] for hyponatremia. ED Course/Assessment/Plan: 67-year-old well-appearing female presents with low urine output post chemo for small cell lung cancer stage IV. She only drinks coffee and never drinks water per her daughter, was found to be hemoconcentrated on basic labs with a sodium of 117, neurologically she is intact and has no signs of altered mental status based on her sodium level, she is willing to stay for IV repletion, I approached Dr. Mishra for admission who accepted at 1330. Disposition of Hyponatremia. Patient verbalized understanding of the plan and return to ED criteria and engaged in shared decision making. Medical Records Medical records reviewed: Yes I reviewed the patient's medical records. Lab Data Lab results reviewed: Yes I reviewed the patient's lab results. Labs: Laboratory Tests Range/Units 08/10/23 08/10/23 11:32 12:35 WBC (4.4-10.8) 10^3/uL 15.74 H RBC (3.93-5.22) 10^6/uL 4.95 Hgb (11.2-15.7) g/dL 13.5 Hct (36.0-46.0) % 37.2 MCV (80-95) fL 75 L MCH (27.0-33.0) pg 27.3 MCHC (32.0-36.0) % 36.3 H RDW (11.7-14.6) % 15.6 H Plt Count (130-400) 10^3/uL 319 MPV (8.0-11.0) fL 8.2 Immature Gran % 1.8 Neutrophils % 93.7 Lymphocytes % 3.7 Monocytes % 0.1 Eosinophils % 0.3 Basophils % 0.4 Nucleated RBC % (0.0-0.3) % 0.0 Absolute Neutrophils (1.2-6.7) 10^3/uL 14.75 H Absolute Lymphocytes (1.2-3.4) 10^3/uL 0.58 L Absolute Monocytes (0.1-0.8) 10^3/uL 0.02 L Absolute Eosinophils (0.0-0.7) 10^3/uL 0.05 Absolute Basophils (0.0-0.2) 10^3/uL 0.06 Sodium (136-145) mmol/L 117 L* Potassium (3.5-5.1) mmol/L 3.8 Chloride (98-107) mmol/L 81 L Carbon Dioxide (21.0-32.0) mmol/L 30.1 Anion Gap (3-11) mmol/L 5.9 BUN (7-18) mg/dL 17 Creatinine (0.55-1.02) mg/dL 0.6 Est GFR (CKD-EPI 2020) (mL/min/1.73m2) 97.10 Glucose (74-106) mg/dL 139 H Calcium (8.5-10.1) mg/dL 8.8 Total Bilirubin (0.2-1.0) mg/dL 0.7 AST (15-37) U/L 14 L ALT (14-59) U/L 23 Alkaline Phosphatase (46-116) U/L 88 Total Protein (6.4-8.2) g/dL 6.3 L Albumin (3.4-5.0) g/dL 3.3 L Urine Color (Yellow) Yellow Urine Clarity (Clear) Clear Urine pH (5-8) 6.0 Ur Specific [place] (1.005-1.025) 1.015 Urine Protein (Negative) mg/dL Negative Urine Ketones (Negative) mg/dL Negative Urine Blood (Negative) Trace-intact H Urine Nitrite (Negative) Negative Urine Bilirubin (Negative) Negative Urine Urobilinogen (Up to 0.2) mg/dL 0.2 Ur Leukocyte Esterase (Negative) Trace H Urine RBC (0-2) HPF 0-2 Urine WBC (0-5) HPF 0-2 Ur Epithelial Cells (Negative) HPF Rare Urine Crystals (Negative) HPF Negative Urine Bacteria (Negative) HPF Few Urine Casts (Negative) LPF Negative Urine Mucus (Negative) Trace Ur Culture Indicated? No Urine Glucose (Negative) mg/dL Negative Quality:SDOH Health Related Social Needs: No Data to Display PFSH All Active Problems (Updated 08/10/23 @ 13:31 by SANDI Valadez) Hyponatremia (Acute) Metastatic lung cancer (metastasis from lung to other site) (Acute) Chest pain (Acute) Restless legs (Acute) Hematuria (Acute) Medical History Bowel perforation Right inguinal hernia Anorexia Smoker Osteoporosis Depression History of rheumatic fever History of kidney stones History of recurrent UTI (urinary tract infection) Juvenile rheumatoid arthritis Seasonal allergies HPV (human papilloma virus) infection per pt. R/O came back negative Abnormal EKG Hyperlipidemia Hypertension PTSD (post-traumatic stress disorder) Lung nodule Family history of colon cancer Angina pectoris Nocturnal hypoxia Pyogenic granuloma Skin cancer of arm Hypothyroidism Sleep apnea Allergic rhinitis Anxiety Cough Upper respiratory infection Bright red blood per rectum Inflammation of small intestine Hypokalemia Diverticulitis GERD (gastroesophageal reflux disease) ADHD CAD (coronary artery disease) Cardiology Chest pain Pt. states it turned out to be acid reflux Surgical History S/P right inguinal hernia repair Hx of local excision of skin lesion S/P colonoscopy S/P partial resection of colon S/P panniculectomy History of total hip arthroplasty Right Family History Father Colon cancer Social History Smoking/Tobacco Use Status: Current every day Tobacco Type: cigarettes Smoking risk assessment performed?: Yes Alcohol Intake: never Drug use: Never Substance use type: does not use Housing: house Do you feel safe at home: Yes Additional Social history: daughter lives with patient Discharge Plan Disposition Patient Disposition: Admit to [facility] Condition: Stable Discharge Details Clinical Impression: Hyponatremia Primary Care Provider: Judith Osorio V ED Provider: Matthieu Workman Home Meds and New Rx's Prescriptions: No Action cephalexin 500 mg capsule 500 mg PO QID Qty: 20 0RF mirtazapine 7.5 mg tablet 7.5 mg PO QHS Qty: 90 4RF nystatin 100,000 unit/mL suspension 5 ml PO TID PRN (Reason: thrush) Qty: 200 0RF Rx Instructions: swish and spit dexamethasone 4 mg tablet 4 mg PO DAILY Qty: 1 0RF nitroglycerin [Nitrostat] 0.4 mg tablet, sublingual 0.4 mg SL Q5M PRN Rx Instructions: do not exceed 3 doses per episode omeprazole 40 mg capsule,delayed release(DR/EC) 40 mg PO DAILY levothyroxine [Synthroid] 50 mcg tablet 50 mcg PO DAILY triamcinolone acetonide [Nasacort] 55 mcg aerosol,spray 1 spray BRYCE DAILY Rx Instructions: administer into each nostril gabapentin 300 mg capsule 300 mg PO DAILY albuterol sulfate [ProAir HFA] 90 mcg/actuation HFA aerosol inhaler 2 puff inhalation Q6H PRN sertraline [Zoloft] 50 mg tablet 50 mg PO DAILY metoprolol tartrate 25 mg tablet 12.5 mg PO BID oxycodone 10 mg tablet 20 mg PO Q4H MDD 80 plus Morphine ER PRN (Reason: pain) Qty: 60 0RF morphine 15 mg tablet extended release 15 mg PO Q8H MDD 45 plus oxycodone 60 Qty: 90 0RF acetaminophen [Tylenol] 325 mg Tablet 650 mg PO Q6H PRN PRNQty: 30 0RF docusate sodium [Colace] 100 mg Capsule 100 mg PO BID PRN (Reason: constipation) Qty: 60 0RF ibuprofen [IBU] 600 mg Tablet 600 mg PO Q6H PRN (Reason: Abdominal Pain) Qty: 30 0RF aspirin [Aspir-Low] 81 MG tablet,delayed release (DR/EC) 81 mg PO DAILY
[2023-08-10 12:45] LABS: Abs Immature Grans 0.29 10^3/uL (0.0-0.06); Absolute Basophil Count 0.06 10^3/uL (0.0-0.2); Absolute Lymphocyte Count 0.58 10^3/uL (1.2-3.4); Absolute Monocyte Count 0.02 10^3/uL (0.1-0.8); Absolute Neutrophil Count 14.75 10^3/uL (1.2-6.7); Basophils % 0.4; Eosinophils % 0.3; HCT 37.2 % (36.0-46.0); HGB 13.5 g/dL (11.2-15.7); Immature Grans % 1.8; Lymphocytes % 3.7; MCH 27.3 pg (27.0-33.0); MCHC 36.3 % (32.0-36.0); MCV 75 fL (80-95); MPV 8.2 fL (8.0-11.0); Monocytes % 0.1; Neutrophils % 93.7; Platelet Count 319 10^3/uL (130-400); RBC 4.95 10^6/uL (3.93-5.22); RDW 15.6 % (11.7-14.6); RDW-SD 40.9 fL; WBC 15.74 10^3/uL (4.4-10.8)
[2023-08-10 12:46] LABS: Absolute Eosinophil Count 0.05 10^3/uL (0.0-0.7)
[2023-08-10 12:56] LABS: ALT 23 U/L (14-59); AST 14 U/L (15-37); Albumin 3.3 g/dL (3.4-5.0); Alkaline Phosphatase 88 U/L (46-116); Anion Gap 5.9 mmol/L (3-11); BUN 17 mg/dL (7-18); Bilirubin, Total 0.7 mg/dL (0.2-1.0); CO2 30.1 mmol/L (21.0-32.0); CREATININE 0.6 mg/dL (0.55-1.02); Calcium 8.8 mg/dL (8.5-10.1); Chloride 81 mmol/L (98-107); Glucose 139 mg/dL (74-106); Potassium 3.8 mmol/L (3.5-5.1); Total Protein 6.3 g/dL (6.4-8.2)
[2023-08-10] MEDS: Normal Saline 1,000 ML 1000 ML IV (12:56)
[2023-08-10 12:58] LABS: Sodium 117 mmol/L (136-145)
--- NOTE | 2023-08-10 13:21 | HPE_ITS ---
Date of service: 08/10/23 Time of Service: 13:56 Assessment and Plan Assessment and plan (1) Comfort measures only status: Status: Acute Assessment and plan: -Shortly after being admitted patient was seen by palliative care and after a prolonged discussion decided that she not longer wished to pursue further care and would like to transition to [employer] with plans to have a Hospice consult -Vital checks and labs have been discontinued -Allow patient to rest -continue home pain regimen as this is currently effective for her -f/u with Hospice tomorrow (2) Hyponatremia: Status: Acute Assessment and plan: - Likely due to combination of poor p.o. 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 -Sodium on 06/18/2023 was 135, down to 128 on 07/27/2023, 124 on 08/05/2023, and down to 117 today on 08/10/2023 -Was given 1 L normal saline in the emergency department (3) Metastatic lung cancer (metastasis from lung to other site): Status: Acute Assessment and plan: - Small cell lung carcinoma, reportedly metastasized to brain -Patient recently seen by palliative care as an outpatient -Put in for palliative consult and appreciate their assistance in discussing ongoing goals of care with patient -plan to transition to [facility] [facility] and go home with hospice as noted above (4) Smoker: Assessment and plan: - Continues to smoke (5) Depression: Assessment and plan: - Continue home sertraline Qualifiers: Depression Type: unspecified Qualified Code(s): F32.9 - Major depressive disorder, single episode, unspecified (6) Hypothyroidism: Qualifiers: Hypothyroidism type: unspecified Qualified Code(s): E03.9 - Hypothyroidism, unspecified (7) CAD (coronary artery disease): History of Present Illness History of Present Illness Chief Complaint: Low urine output Narrative: 67-year-old female with past medical history of small cell lung cancer, stage IV with mets to the brain, coronary artery disease, COPD, hypothyroidism who presents to the emergency department with complaints of renal low urine output. Patient presents with her daughter notes that she has had low urine output since her last round of chemotherapy at [facility] [place]. She is currently undergoing chemotherapy to slow down the progression of her small cell lung carcinoma. She states that she is not having any pain when she does urinate, denies any suprapubic pain or tenderness, flank pain, changes in color of urine, shortness of breath or other abdominal pain. Patient also noted to have poor p.o. intake, stating that she only drinks coffee and smokes cigarettes. In the emergency department the patient was noted as looking lethargic, otherwise normal physical exam, and normal vital signs. Her CBC did show a white blood cell count of 15.7 however this is significantly improved from 5 days prior to admission where it was 73. However, her CMP was notable for a sodium of 117 which is decreased from 5 days ago 124, with a glucose of 139, and an unremarkable UA. At which time emergency room PA paged hospitalist for admission for patient with poor p.o. intake with metastatic small cell lung carcinoma and likely SIADH resulting in acute on chronic hyponatremia. Review of Systems All systems reviewed & are unremarkable except as noted in HPI and below PFSH All Active Problems (Updated 08/10/23 @ 17:31 by Andrew Mishra MD) Comfort measures only status (Acute) Hyponatremia (Acute) Metastatic lung cancer (metastasis from lung to other site) (Acute) Chest pain (Acute) Restless legs (Acute) Hematuria (Acute) Medical History Bowel perforation Right inguinal hernia Anorexia Smoker Osteoporosis Depression History of rheumatic fever History of kidney stones History of recurrent UTI (urinary tract infection) Juvenile rheumatoid arthritis Seasonal allergies HPV (human papilloma virus) infection per pt. R/O came back negative Abnormal EKG Hyperlipidemia Hypertension PTSD (post-traumatic stress disorder) Lung nodule Family history of colon cancer Angina pectoris Nocturnal hypoxia Pyogenic granuloma Skin cancer of arm Hypothyroidism Sleep apnea Allergic rhinitis Anxiety Cough Upper respiratory infection Bright red blood per rectum Inflammation of small intestine Hypokalemia Diverticulitis GERD (gastroesophageal reflux disease) ADHD CAD (coronary artery disease) Cardiology Chest pain Pt. states it turned out to be acid reflux Surgical History S/P right inguinal hernia repair Hx of local excision of skin lesion S/P colonoscopy S/P partial resection of colon S/P panniculectomy History of total hip arthroplasty Right Family History Father Colon cancer Social History Smoking/Tobacco Use Status: Current every day Tobacco Type: cigarettes Smoking risk assessment performed?: Yes Alcohol Intake: never Drug use: Never Substance use type: does not use Housing: house Do you feel safe at home: Yes Additional Social history: daughter lives with patient Meds Allergies and Home Medications Allergies Allergy/AdvReac Type Severity Reaction Status Date / Time dry air heat AdvReac Mild runny Uncoded 07/29/23 19:20 nose/sneezing Home Medications Medication Instructions Recorded Confirmed Type aspirin 81 mg tablet,delayed 81 mg PO DAILY 10/29/16 08/10/23 History release (Aspir-Low) levothyroxine 50 mcg tablet 50 mcg PO DAILY 12/14/19 08/10/23 History (Synthroid) nitroglycerin 0.4 mg sublingual 0.4 mg sublingual Q5M PRN 12/14/19 08/10/23 History tablet (Nitrostat) omeprazole 40 mg capsule,delayed 40 mg PO DAILY 12/14/19 08/10/23 History release triamcinolone acetonide 55 mcg 1 spray intranasal DAILY 12/14/19 08/10/23 History nasal spray aerosol (Nasacort) acetaminophen 325 mg tablet 650 mg (2 x 325 mg) PO Q6H PRN PRN 02/04/20 08/10/23 Rx (Tylenol) #30 tabs docusate sodium 100 mg capsule 100 mg PO BID PRN constipation #60 02/04/20 08/10/23 Rx (Colace) caps ibuprofen 600 mg tablet (IBU) 600 mg PO Q6H PRN Abdominal Pain 02/04/20 08/10/23 Rx #30 tabs albuterol sulfate 90 mcg/actuation 2 puff inhalation Q6H PRN 10/09/22 08/10/23 History aerosol inhaler (ProAir HFA) gabapentin 300 mg capsule 300 mg PO DAILY 10/09/22 08/10/23 History sertraline 50 mg tablet (Zoloft) 50 mg PO DAILY 10/28/22 08/10/23 History metoprolol tartrate 25 mg tablet 12.5 mg PO BID 01/26/23 08/10/23 History dexamethasone 4 mg tablet 4 mg PO DAILY #1 tab 07/22/23 08/10/23 Rx mirtazapine 7.5 mg tablet 7.5 mg PO QHS #90 tabs 07/22/23 08/10/23 Rx nystatin 100,000 unit/mL oral 5 ml PO TID PRN thrush #200 mL 07/22/23 08/10/23 Rx suspension cephalexin 500 mg capsule 500 mg PO QID #20 caps 07/29/23 08/10/23 Rx oxycodone 10 mg tablet 20 mg (2 x 10 mg) PO Q4H PRN pain 07/31/23 08/10/23 Rx #60 tabs atorvastatin 20 mg tablet 20 mg PO HS 08/10/23 08/10/23 History gabapentin 100 mg capsule 100 mg PO HS 08/10/23 08/10/23 History morphine 15 mg tablet,extended 15 mg PO Q8H #90 tabs 08/10/23 08/10/23 Rx release Exam Narrative Exam Narrative: chronically ill appearing older female laying in bed in no acute distress, AOx4, heart RRR, lungs CTAB, abdomen soft, non-tender and non-distended Results Labs 08/10/23 12:35 08/10/23 12:35 Labs: Laboratory Results - last 24 hr 08/10/23 08/10/23 11:32 12:35 WBC 15.74 H RBC 4.95 Hgb 13.5 Hct 37.2 MCV 75 L MCH 27.3 MCHC 36.3 H RDW 15.6 H Plt Count 319 MPV 8.2 Immature Gran % 1.8 Neutrophils % 93.7 Lymphocytes % 3.7 Monocytes % 0.1 Eosinophils % 0.3 Basophils % 0.4 Nucleated RBC % 0.0 Absolute Neutrophils 14.75 H Absolute Lymphocytes 0.58 L Absolute Monocytes 0.02 L Absolute Eosinophils 0.05 Absolute Basophils 0.06 Sodium 117 L* Potassium 3.8 Chloride 81 L Carbon Dioxide 30.1 Anion Gap 5.9 BUN 17 Creatinine 0.6 Est GFR (CKD-EPI 2020) 97.10 Glucose 139 H Calcium 8.8 Total Bilirubin 0.7 AST 14 L ALT 23 Alkaline Phosphatase 88 Total Protein 6.3 L Albumin 3.3 L Urine Color Yellow Urine Clarity Clear Urine pH 6.0 Ur Specific [place] 1.015 Urine Protein Negative Urine Ketones Negative Urine Blood Trace-intact H Urine Nitrite Negative Urine Bilirubin Negative Urine Urobilinogen 0.2 Ur Leukocyte Esterase Trace H Urine RBC 0-2 Urine WBC 0-2 Ur Epithelial Cells Rare Urine Crystals Negative Urine Bacteria Few Urine Casts Negative Urine Mucus Trace Ur Culture Indicated? No Urine Glucose Negative Last Vital Signs Temp 98.6 F 08/10/23 12:14 Pulse 69 08/10/23 12:14 Resp 18 08/10/23 12:14 BP 123/73 08/10/23 12:14 Pulse Ox 96 08/10/23 12:14 Time Spent Time spent with Patient: >75 minutes Time was spent: preparing to see the patient(eg.review tests), obtaining and/or reviewing separately otained hiistory, ordering medications,tests, procedures, referring, communicating with other health primary care nurse practitioner, indepentently interpreting results, counseling the patient and care coordination
[2023-08-10 13:57] VITALS: BP 144/76; PULSE 64; RESP 18; TEMP 36.1; O2SAT 95
--- NOTE | 2023-08-10 14:56 | PHA.REVIEW2 ---
Pharmacy Admission Review Admission Clinical Review Admission Pharmacy Review: (Updated 08/10/23 @ 13:31 by SANDI Valadez) Hyponatremia (Acute) Metastatic lung cancer (metastasis from lung to other site) (Acute) dry air heat Adverse Reaction (Mild, Uncoded 07/29/23 19:20) runny nose/sneezing Resuscitation Status DNR/DNI Height 5 ft Weight 45.359 kg Comments Comments/Follow Ups: Monitor kidney function (if decreases may need to adjust enoxaparin and morphine). Monitor sodium levels Pharmacy Admission Review Renal Dosing Renal Dosing: BUN 17 mg/dL (7-18) 08/10/23 12:35 Creatinine 0.6 mg/dL (0.55-1.02) 08/10/23 12:35 Medications needing adjustments: Reviewed (CrCl 38.02 mL/min) Anticoagulation Anticoagulation: Hgb 13.5 g/dL (11.2-15.7) 08/10/23 12:35 Hct 37.2 % (36.0-46.0) 08/10/23 12:35 Plt Count 319 10^3/uL (130-400) 08/10/23 12:35 Creatinine 0.6 mg/dL (0.55-1.02) 08/10/23 12:35 DVT Prophylaxis: Reviewed Medications: Enoxaparin (40mg q24h) Opiate Usage Evaluate Pain Scale/Pains Meds: Reviewed (BANDAR morphine and PRN oxycodone) Scheduled Bowel Reg ordered if on Opiates?: No (PRN Miralax/docusate) Relevant Labs Relevant Labs: Sodium 117 mmol/L (136-145) L* 08/10/23 12:35 Potassium 3.8 mmol/L (3.5-5.1) 08/10/23 12:35 Chloride 81 mmol/L (98-107) L 08/10/23 12:35 Electrolytes, C-Reactive P, ESR: Reviewed (Na 117 (received normal saline bolus in ER), glucose 149, AST 14, WBC 15.74) Cardiac Review BP, HR, EF%: Reviewed (HR WNL, BP 144/76) QTc Review QTc: Reviewed (379 from EKG on 07/14/23) IV to PO Switch IV Medications: Reviewed Home Meds Home Med List reviewed: Intervened Relevent Home Meds Not ordered & why?: Cephalexin listed on patients home med list but was a 5 day course that was completed. Reached out to provider and canceled order. Fentanyl patch was picked up on 07/14, reached out to provider who stated the patch was removed and not continued Atorvastatin was picked up on 06/14 for 90 day supply but not listed on home med list. Contacted provider, updated home med list and then added order per Dr. Mishra. Patient picks up Rx for gabapentin 300mg and 100mg capsules, reached out to provider because only order for 300mg were put in. Per provider added the 100mg capsules. Current Meds Current Medication Order Review: Reviewed Comments Comments/Follow Ups: Monitor kidney function (if decreases may need to adjust enoxaparin and morphine). Monitor sodium levels
--- NOTE | 2023-08-10 15:03 | W.PALLCONSUL ---
Date of service: 08/10/23 Time of Service: 15:03 History of Present Illness History of Present Illness Chief Complaint: Jessa states that she feels good but that they told her at [facility] to ER Narrative: Jessa is a 67-year-old woman who has metastatic lung cancer which has gone to her brain and multiple other sites. She has been told by her oncologist that she has 2 to 4 months to live per her daughters. She was sent to the ER and subsequently admitted because of hyponatremia. Her daughters have been in contact with me and have been concerned that her mom might be going through treatment that we will not give her any better life or longer life. I was asked to do a palliative consult on Jessa when she was admitted to the hospital. Jessa is bright and smiling. She says she feels the best that she has felt in a year. Her pain is well-controlled. I have known Jessa for over 20 years. 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 She states that she knows what the next chapter of her life will be like and is concerned that her daughters will need to go through this. She wants mostly to spend quality time with her daughters and to be home. She misses her dog who has anxiety disorder. Her daughter state that Jessa is not safe at home by herself. She needs a lot of direction and care. She needs medication management and help with ADLs. They have applied for FMLA. Assessment and Plan Assessment and plan (1) Hyponatremia: Status: Acute (2) Metastatic lung cancer (metastasis from lung to other site): Status: Acute Assessment and plan: Jessa clearly has widespread metastatic lung cancer. I am very happy that her pain is well-controlled at this point. Both she and her daughters have wanted consideration for hospice care. Jessa is well acquainted with hospice and what end-of-life issues she faces. She had a horrible time with chemotherapy. She knows that this is affecting her brain. Jessa requested a hospice consult. I did discuss this with Dr. Mishra. I do believe that her hyponatremia is three-pronged: Lung cancer, mets to the brain, and SSRIs. At this point she is smiling mentally acute and engaged in life. I realize that this will be short-lived if her hyponatremia worsens. She does not want to be hooked up to a lot of interventions. She wants to go home Her daughter is in the room and both are very sad with how things are going. Her daughters have requested FMLA and I have filled out the paperwork for Gabi. Her daughters request that when there is the hospice consult that one of them be on speaker phone. Total time 47 min Review of Systems Narrative: She states that she feels good and only came to the ER because of the urging from [facility]. PFSH All Active Problems (Updated 08/10/23 @ 17:31 by Andrew Mishra MD) Comfort measures only status (Acute) Hyponatremia (Acute) Metastatic lung cancer (metastasis from lung to other site) (Acute) Chest pain (Acute) Restless legs (Acute) Hematuria (Acute) Medical History Bowel perforation Right inguinal hernia Anorexia Smoker Osteoporosis Depression History of rheumatic fever History of kidney stones History of recurrent UTI (urinary tract infection) Juvenile rheumatoid arthritis Seasonal allergies HPV (human papilloma virus) infection per pt. R/O came back negative Abnormal EKG Hyperlipidemia Hypertension PTSD (post-traumatic stress disorder) Lung nodule Family history of colon cancer Angina pectoris Nocturnal hypoxia Pyogenic granuloma Skin cancer of arm Hypothyroidism Sleep apnea Allergic rhinitis Anxiety Cough Upper respiratory infection Bright red blood per rectum Inflammation of small intestine Hypokalemia Diverticulitis GERD (gastroesophageal reflux disease) ADHD CAD (coronary artery disease) Cardiology Chest pain Pt. states it turned out to be acid reflux Surgical History S/P right inguinal hernia repair Hx of local excision of skin lesion S/P colonoscopy S/P partial resection of colon S/P panniculectomy History of total hip arthroplasty Right Family History Father Colon cancer Social History Smoking/Tobacco Use Status: Current every day Tobacco Type: cigarettes Smoking risk assessment performed?: Yes Alcohol Intake: never Drug use: Never Substance use type: does not use Housing: house Do you feel safe at home: Yes Additional Social history: daughter lives with patient Exam Narrative Exam Narrative: Jessa has her ever present smile on her face. She is standing up walking easily from bathroom to bed. She hops in bed on her own. Her heart is regular. Lungs decreased air movement some scattered wheezing. No edema in her legs. Today she is alert and oriented x 3. She clearly understands that she has metastatic lung cancer and that she will from this. Results Last Vital Signs Temp 97.0 F L 08/10/23 13:57 Pulse 64 08/10/23 13:57 Resp 18 08/10/23 13:57 BP 144/76 H 08/10/23 13:57 Pulse Ox 95 08/10/23 13:57 Labs 08/10/23 12:35 08/10/23 12:35 Labs: Laboratory Results - last 24 hr 08/10/23 08/10/23 11:32 12:35 WBC 15.74 H RBC 4.95 Hgb 13.5 Hct 37.2 MCV 75 L MCH 27.3 MCHC 36.3 H RDW 15.6 H Plt Count 319 MPV 8.2 Immature Gran % 1.8 Neutrophils % 93.7 Lymphocytes % 3.7 Monocytes % 0.1 Eosinophils % 0.3 Basophils % 0.4 Nucleated RBC % 0.0 Absolute Neutrophils 14.75 H Absolute Lymphocytes 0.58 L Absolute Monocytes 0.02 L Absolute Eosinophils 0.05 Absolute Basophils 0.06 Sodium 117 L* Potassium 3.8 Chloride 81 L Carbon Dioxide 30.1 Anion Gap 5.9 BUN 17 Creatinine 0.6 Est GFR (CKD-EPI 2020) 97.10 Glucose 139 H Calcium 8.8 Total Bilirubin 0.7 AST 14 L ALT 23 Alkaline Phosphatase 88 Total Protein 6.3 L Albumin 3.3 L Urine Color Yellow Urine Clarity Clear Urine pH 6.0 Ur Specific [place] 1.015 Urine Protein Negative Urine Ketones Negative Urine Blood Trace-intact H Urine Nitrite Negative Urine Bilirubin Negative Urine Urobilinogen 0.2 Ur Leukocyte Esterase Trace H Urine RBC 0-2 Urine WBC 0-2 Ur Epithelial Cells Rare Urine Crystals Negative Urine Bacteria Few Urine Casts Negative Urine Mucus Trace Ur Culture Indicated? No Urine Glucose Negative
[2023-08-10] MEDS: oxyCODONE 10 MG TAB 20 MG PO (15:13)
[2023-08-10] MEDS: Enoxaparin 40 MG/0.4 ML SYR SC (15:13)
[2023-08-10 15:33] VITALS: BP 146/88; PULSE 70; RESP 17; TEMP 37.2; O2SAT 96
[2023-08-10] MEDS: Mirtazapine 15 MG TAB 7.5 MG PO (21:31)
[2023-08-10] MEDS: Gabapentin 100 MG CAP PO (21:32)
[2023-08-10] MEDS: oxyCODONE 10 MG TAB PO (21:32)
[2023-08-11] MEDS: oxyCODONE 10 MG TAB PO (06:30)
[2023-08-11] MEDS: Metoprolol 12.5 MG TAB PO (07:06)
[2023-08-11] MEDS: Omeprazole 20 MG CAPCR 40 MG PO (07:06)
[2023-08-11] MEDS: Normal Saline Flush 10 ML SYR IVP (07:07)
--- NOTE | 2023-08-11 07:20 | W.PALPGNOTE ---
Date of service: 08/11/23 Time of Service: 07:20 Assessment and Plan Assessment and plan (1) Hyponatremia: Status: Acute (2) Metastatic lung cancer (metastasis from lung to other site): Status: Acute (3) Concern about end of life: Status: Acute Assessment and plan: Jessa is still wanting to pursue going on hospice and stopping all treatment. She does want to go through the scans ordered for next week so that she can understand whether the chemotherapy has helped or not. She knows that it was only palliative and that it will not cure her. She does not want to spend her time in the hospital. She wants to go home. She wants to be with her dog who is quite anxious because she is not there. She does not want to hospice consult to hold her up from going home. If this cannot be done until later today she would rather have a hospice consult at home. She understands that she has done a good job of raising her girls and that they are able to handle what is ahead. She is sad about leaving them. Her pain is well-controlled at this point. I would expect that her hyponatremia will progress and that she will be more sleepy and have more mental status changes in the near future. I am not certain that she will be able to make it to the scans ordered for next week. Depending on her progression I think she has weeks to a month to live I will continue to follow Jessa. 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 She knows she can contact me at any time. I spoke with Cindy and Gabi about taking their mom home and hospice care. Everyone is on board with Jessa's decision to pursue hospice Subjective Subjective Interval history since last seen: I stopped to see Jessa this morning to further discuss hospice care, her goals etc. She clearly stated that she does want to go on hospice soon, but she would like to see if the treatments that she has undergone have helped her lung cancer in any way. Next week she is scheduled for some scans and she would like to go through this. This will not change the fact that she wants to go on hospice but she would like to have the chance to see if the chemotherapy has done anything. She states that she slept well but wants to get back with her dog soon as possible. She does not want the hospice consult today to delay her going home. She wants to go home as soon as possible. Exam Narrative Exam Narrative: Jessa continues to smile and be her energetic self. She is alert and oriented x 3 this morning her heart is regular. Lungs diminished airflow but still good. Her legs no edema. Mood sad about the cancer which will end her life soon, but looking forward to spending time, quality time with her daughters. Objective Last Vital Signs Temp 99.0 F 08/10/23 15:33 Pulse 70 08/10/23 15:33 Resp 17 08/10/23 15:33 BP 146/88 H 08/10/23 15:33 Pulse Ox 96 08/10/23 15:33 Laboratory Results - last 24 hr 08/10/23 08/10/23 11:32 12:35 WBC 15.74 H RBC 4.95 Hgb 13.5 Hct 37.2 MCV 75 L MCH 27.3 MCHC 36.3 H RDW 15.6 H Plt Count 319 MPV 8.2 Immature Gran % 1.8 Neutrophils % 93.7 Lymphocytes % 3.7 Monocytes % 0.1 Eosinophils % 0.3 Basophils % 0.4 Nucleated RBC % 0.0 Absolute Neutrophils 14.75 H Absolute Lymphocytes 0.58 L Absolute Monocytes 0.02 L Absolute Eosinophils 0.05 Absolute Basophils 0.06 Sodium 117 L* Potassium 3.8 Chloride 81 L Carbon Dioxide 30.1 Anion Gap 5.9 BUN 17 Creatinine 0.6 Est GFR (CKD-EPI 2020) 97.10 Glucose 139 H Calcium 8.8 Total Bilirubin 0.7 AST 14 L ALT 23 Alkaline Phosphatase 88 Total Protein 6.3 L Albumin 3.3 L Urine Color Yellow Urine Clarity Clear Urine pH 6.0 Ur Specific [place] 1.015 Urine Protein Negative Urine Ketones Negative Urine Blood Trace-intact H Urine Nitrite Negative Urine Bilirubin Negative Urine Urobilinogen 0.2 Ur Leukocyte Esterase Trace H Urine RBC 0-2 Urine WBC 0-2 Ur Epithelial Cells Rare Urine Crystals Negative Urine Bacteria Few Urine Casts Negative Urine Mucus Trace Ur Culture Indicated? No Urine Glucose Negative
[2023-08-11] MEDS: Nicotine 14 MG/24 HR PATCH TD (08:10)
[2023-08-11] MEDS: Sertraline 50 MG TAB PO (08:11)
[2023-08-11] MEDS: Dexamethasone 4 MG TAB PO (08:11)
--- NOTE | 2023-08-11 10:47 | W.PM.DS.N ---
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 Home Meds and New Rx's Prescriptions: Continued mirtazapine 7.5 mg tablet 7.5 mg PO QHS Qty: 90 4RF nystatin 100,000 unit/mL suspension 5 ml PO TID PRN (Reason: thrush) Qty: 200 0RF Rx Instructions: swish and spit dexamethasone 4 mg tablet 4 mg PO DAILY Qty: 1 0RF nitroglycerin [Nitrostat] 0.4 mg tablet, sublingual 0.4 mg SL Q5M PRN Rx Instructions: do not exceed 3 doses per episode omeprazole 40 mg capsule,delayed release(DR/EC) 40 mg PO DAILY triamcinolone acetonide [Nasacort] 55 mcg aerosol,spray 1 spray BRYCE DAILY Rx Instructions: administer into each nostril gabapentin 300 mg capsule 300 mg PO DAILY albuterol sulfate [ProAir HFA] 90 mcg/actuation HFA aerosol inhaler 2 puff inhalation Q6H PRN sertraline [Zoloft] 50 mg tablet 50 mg PO DAILY metoprolol tartrate 25 mg tablet 12.5 mg PO BID oxycodone 10 mg tablet 20 mg PO Q4H MDD 80 plus Morphine ER PRN (Reason: pain) Qty: 60 0RF morphine 15 mg tablet extended release 15 mg PO Q8H MDD 45 plus oxycodone 60 Qty: 90 0RF acetaminophen [Tylenol] 325 mg Tablet 650 mg PO Q6H PRN PRNQty: 30 0RF docusate sodium [Colace] 100 mg Capsule 100 mg PO BID PRN (Reason: constipation) Qty: 60 0RF ibuprofen [IBU] 600 mg Tablet 600 mg PO Q6H PRN (Reason: Abdominal Pain) Qty: 30 0RF gabapentin 100 mg capsule 100 mg PO HS Patient Comments: TAKE 1 CAPSULE BY MOUTH AT BEDTIME Discontinued cephalexin 500 mg capsule 500 mg PO QID Qty: 20 0RF levothyroxine [Synthroid] 50 mcg tablet 50 mcg PO DAILY aspirin [Aspir-Low] 81 MG tablet,delayed release (DR/EC) 81 mg PO DAILY atorvastatin 20 mg tablet 20 mg PO HS Patient Comments: TAKE 1 TABLET BY MOUTH AT BEDTIME Discharge Instructions Activity:: Activity as Tolerated Equipment/Supplies:: No Equipment Needed Diet:: As Tolerated Discharge Orders Discharge Orders: Discharge Order (Routine); Ordered 08/11/23 Ordered By: Andrew Mishra DS: Summary Time Spent with Patient providing and/or coordinating discharge services: Greater than 30 minutes Status at Discharge Functional status at discharge: independent ambulation Overall status at discharge: patient is back to baseline Mental Status: mental status grossly normal Speech and Movement: speech and movement normal Mood: congruent mood Affect: normal affect Quality:SDOH Health Related Social Needs: No Data to Display Exam Narrative Exam Narrative: Well appearing, upbeat older female laying in bed in no acute distress, AOx4, breathing non-labored Psych Mental Status: mental status grossly normal Speech and Movement: speech and movement normal Mood: congruent mood Affect: normal affect DS: Data Vitals/I&O Vitals and I&O: Vital Signs Temperature 99.0 F 08/10/23 15:33 Temperature Source Tympanic 08/10/23 15:33 Pulse 70 08/10/23 15:33 Pulse Rhythm Regular 08/11/23 07:13 Respiratory Rate 17 08/10/23 15:33 Respiratory Effort Normal, Non-Labored 08/11/23 07:13 Respiratory Depth Normal 08/11/23 07:13 Respiratory Pattern Normal 08/11/23 07:13 Blood Pressure 146/88 H 08/10/23 15:33 Blood Pressure Position Sitting 08/10/23 11:14 Pulse Oximetry 96 08/10/23 15:33 Oxygen Delivery Method Room Air 08/10/23 15:33 Oxygen Flow Rate 0 08/10/23 15:33 Pain Level 0 08/10/23 15:33 Intake & Output 08/10/23 08/11/23 08/11/23 17:59 05:59 17:59 Intake Total 1000 / 1000 110 / 110 Balance 1000 / 1000 110 / 110 Weight 100 lb Intake: IV 1000 / 1000 Oral 110 / 110 Other: Urine Appearance Clear Clear Clear Comment pT stated that she got up to use the bathroom. pT hasn't gone to the bathroom, she stated that she doesn't need to at this time. pT will get up independently to use bathroom. Voiding Methods Toilet Toilet Data Completed and Pending Labs on day of discharge: Labs from last 24 hours 08/10/23 08/10/23 12:35 11:32 WBC 15.74 H RBC 4.95 Hgb 13.5 Hct 37.2 MCV 75 L MCH 27.3 MCHC 36.3 H RDW 15.6 H Plt Count 319 MPV 8.2 Immature Gran % 1.8 Neutrophils % 93.7 Lymphocytes % 3.7 Monocytes % 0.1 Eosinophils % 0.3 Basophils % 0.4 Nucleated RBC % 0.0 Absolute Neutrophils 14.75 H Absolute Lymphocytes 0.58 L Absolute Monocytes 0.02 L Absolute Eosinophils 0.05 Absolute Basophils 0.06 Sodium 117 L* Potassium 3.8 Chloride 81 L Carbon Dioxide 30.1 Anion Gap 5.9 BUN 17 Creatinine 0.6 Est GFR (CKD-EPI 2020) 97.10 Glucose 139 H Calcium 8.8 Total Bilirubin 0.7 AST 14 L ALT 23 Alkaline Phosphatase 88 Total Protein 6.3 L Albumin 3.3 L Urine Color Yellow Urine Clarity Clear Urine pH 6.0 Ur Specific [place] 1.015 Urine Protein Negative Urine Ketones Negative Urine Blood Trace-intact H Urine Nitrite Negative Urine Bilirubin Negative Urine Urobilinogen 0.2 Ur Leukocyte Esterase Trace H Urine RBC 0-2 Urine WBC 0-2 Ur Epithelial Cells Rare Urine Crystals Negative Urine Bacteria Few Urine Casts Negative Urine Mucus Trace Ur Culture Indicated? No Urine Glucose Negative PFSH All Active Problems (Updated 08/11/23 @ 07:23 by Delfina Jauregui MD, [place]) Concern about end of life (Acute) Comfort measures only status (Acute) Hyponatremia (Acute) Metastatic lung cancer (metastasis from lung to other site) (Acute) Chest pain (Acute) Restless legs (Acute) Hematuria (Acute) Medical History Bowel perforation Right inguinal hernia Anorexia Smoker Osteoporosis Depression History of rheumatic fever History of kidney stones History of recurrent UTI (urinary tract infection) Juvenile rheumatoid arthritis Seasonal allergies HPV (human papilloma virus) infection per pt. R/O came back negative Abnormal EKG Hyperlipidemia Hypertension PTSD (post-traumatic stress disorder) Lung nodule Family history of colon cancer Angina pectoris Nocturnal hypoxia Pyogenic granuloma Skin cancer of arm Hypothyroidism Sleep apnea Allergic rhinitis Anxiety Cough Upper respiratory infection Bright red blood per rectum Inflammation of small intestine Hypokalemia Diverticulitis GERD (gastroesophageal reflux disease) ADHD CAD (coronary artery disease) Cardiology Chest pain Pt. states it turned out to be acid reflux Surgical History S/P right inguinal hernia repair Hx of local excision of skin lesion S/P colonoscopy S/P partial resection of colon S/P panniculectomy History of total hip arthroplasty Right Family History Father Colon cancer Social History Smoking/Tobacco Use Status: Current every day Tobacco Type: cigarettes Smoking risk assessment performed?: Yes Alcohol Intake: never Drug use: Never Substance use type: does not use Housing: house Do you feel safe at home: Yes Additional Social history: daughter lives with patient Time Spent with Patient Time Spent with Patient: <45 minutes Time was spent: preparing to see the patient(eg.review tests), obtaining and/or reviewing separately otained hiistory, ordering medications,tests, procedures, referring, communicating with other health patient centered care specialist, indepentently interpreting results, counseling the patient and care coordination
--- NOTE | 2023-08-11 16:33 | PDOC.CMPRO ---
Date of service: 08/11/23 Time of Service: 16:33 Care Management Progress Note Progress Note Text Progress Note Text: S/O: Jessa was lying in bed when CM met with her. Per MD, she is ready for discharge, pending a hospice consult, which she requested. FAUSTINA spoke with Jessa and her daughter, Cindy, who was in the room visiting, and informed them that Eliazar, tobacco prevention health educator, would be in shortly for the hospice consult. Jessa is familiar with hospice, as she has been a caregiver in the community for many years, and was happy to hear that Eliazar would be supporting her and her family during this transitional period. After meeting with them, Eliazar reported that she will return home today and have a hospice admission tomorrow, at home. Jessa was happy to return home, and her daughter transported her via private vehicle. She will follow up with support from hospice in the community. CM will continue to follow. A: Jessa is a 67 year old female admitted to [facility] on 08/10/23 for hyponatremia. P: Jessa returned home today with a scheduled admission to hospice services tomorrow, at home. Her daughter drove her home via private vehicle. She will follow up with her plan of care, supported by the hospice team in the community. CM will continue to support Jessa and her family. SDOH(Care Management) Screening Will the Patient Participate in the Screening?: Yes Do you worry about having a steady place to live?: no Problems where you live: no known problems In the past 12 months, have you had to go without electric, gas, oil or water in your home?: no Have you or anyone in your house had to go without enough food to eat?: no Has lack of transportation kept you from medical appointments or from doing things needed for daily living?: no Has anyone in your support network made you feel unsafe for any reason?: no
== END 2023-08-11 12:33 | disposition hospice, home (50) | DRG 644 ==
LOC: ER 13:31 → MS 08-11 10:11
PROVIDERS: Emergency Medicine; Admitting Provider Family Medicine; Emergency Provider Physician Assistant; PCP Family Medicine; Visit Provider Family Medicine
DX: E22.2 Syndrome of inappropriate secretion of antidiuretic hormone (principal); C34.92 Malignant neoplasm of unspecified part of left bronchus or lung; C79.31 Secondary malignant neoplasm of brain; Z68.1 Body mass index [BMI] 19.9 or less, adult; Z51.5 Encounter for palliative care; F17.210 Nicotine dependence, cigarettes, uncomplicated; F32.A Depression, unspecified; E03.9 Hypothyroidism, unspecified; I25.10 Atherosclerotic heart disease of native coronary artery without angina pectoris; J44.9 Chronic obstructive pulmonary disease, unspecified; Z79.899 Other long term (current) drug therapy; G25.81 Restless legs syndrome; R63.0 Anorexia; M81.0 Age-related osteoporosis without current pathological fracture; E78.5 Hyperlipidemia, unspecified; I10 Essential (primary) hypertension; Z96.641 Presence of right artificial hip joint; Z90.49 Acquired absence of other specified parts of digestive tract
CPT/HCPCS: 00123; 36415; 51798; 80053; 96360; 99285; J1650; 81003; 81015; 85025; 99223; 99239; J3490; J8540